=== PATIENT | female | born 1935 | race Caucasian/White ===

== ENCOUNTER → 2021-07-11 12:43 | Outpatient (CLI) | payer MEDICARE, SELFPAY ==
[2021-07-11 13:26] LABS: Basophils % 0.4 % (0.1-2.0); Eosinophils # 0.1 K/mm3 (0.0-0.4); Eosinophils % 1.4 % (0.1-12.0); Hematocrit 39.5 % (37.0-47.0); Lymphocytes # 1.3 K/mm3 (0.7-4.5); Lymphocytes % 20.1 % (10-50); Mean Corpuscular HGB Conc 30.3 g/dL (31.8-35.4); Mean Platelet Volume 10.1 fl (7.4-10.4); Monocytes # 0.3 K/mm3 (0.1-1.0); Monocytes % 4.3 % (1.7-9.3); Neutrophils # 4.8 K/mm3 (1.8-7.8); Neutrophils % 73.7 % (37.0-80.0); Platelet Count 195 K/mm3 (142-424); Red Blood Count 3.62 M/mm3 (4.20-5.40); Red Cell Distribution Width 14.9 % (11.5-17.5); White Blood Count 6.5 K/mm3 (4.8-10.8)
[2021-07-11 14:47] LABS: Chloride 106 mmol/L (98-107); Potassium 4.7 mmoL/L (3.5-5.1); Sodium 140 mmol/L (136-145)
[2021-07-11 14:49] LABS: Alanine Aminotransferase 12 U/L (12-78); Alkaline Phosphatase 63 U/L (38-126); Aspartate Amino Transferase 26 U/L (14-36); Bilirubin,Total 0.4 mg/dl (0.2-1.3); Blood Urea Nitrogen 19 mg/dl (7-17); Estimated Glomerular Filt Rate 80 ml/min (>60); GFR (African American) 96 ML/MIN (>60)
[2021-07-11 14:50] LABS: Albumin Level 3.7 g/dl (3.5-5.0); Albumin/Globulin Ratio 1.4 (1.1-1.8); Anion Gap 10.7 mEq/L (5-15); Calcium 8.9 mg/dl (8.4-10.2); Carbon Dioxide 28 mmol/L (22.0-30.0); Chol/HDL Ratio 3.2 (1-3.5); Cholesterol 193 mg/dl (140-200); Globulin 2.6 g/dL (1.3-3.2); Glucose 87 mg/dl (74-100); HDL Cholesterol 61 mg/dl (40-60); Total Protein,Serum 6.3 g/dl (6.3-8.2); Triglycerides 60 mg/dl (30-150); VLDL Cholesterol 12 mg/dL (0-40)
[2021-07-11 15:01] LABS: Direct LDL Cholesterol 99.05 mg/dL (100-129)
[2021-07-11 16:21] LABS: 25-OH Vitamin D, Total 64.6 ng/mL (30-100)
[2021-07-12 20:11] LABS: Vitamin B12 640 pg/mL (239-931)
== END ==
PROVIDERS: Visit Provider Internal Medicine
DX: K44.9 Diaphragmatic hernia without obstruction or gangrene (principal); K21.9 Gastro-esophageal reflux disease without esophagitis; K41.90 Unilateral femoral hernia, without obstruction or gangrene, not specified as recurrent; M81.0 Age-related osteoporosis without current pathological fracture; M15.0 Primary generalized (osteo)arthritis; E78.5 Hyperlipidemia, unspecified
CPT/HCPCS: 80053; 80061; 82306; 82607; 82746; 85025

== ENCOUNTER → 2021-07-17 14:50 | Outpatient (CLI) | payer MEDICARE, SELFPAY ==
--- NOTE | 2021-07-17 14:55 | XR_ITS ---
PROCEDURE: XR LUMBAR SPINE MIN 4V CLINICAL INDICATION: RT LOW BACK PAIN,H/O BREAST CA COMPARISON: No exams were available for comparison FINDINGS: Mild thoracolumbar curvature convex left. Multilevel lumbar spondylosis with exaggerated thoracic lordosis. There is 8 mm anterolisthesis of L4 on L5. There is partial lumbarization of S1. No definite acute fracture or dislocation. There is diffuse vascular calcification. There are facet arthritic changes from L3-S1. Other findings:No lytic or blastic change. IMPRESSION: Degenerative changes as described above Dictated by: Spencer Gould MD 07/17/2021 17:25 Spencer Gould MD in [facility] 07/17/2021 17:25
== END ==
PROVIDERS: PCP Internal Medicine; Visit Provider Internal Medicine
DX: M54.50 Low back pain, unspecified (principal); Z85.3 Personal history of malignant neoplasm of breast
CPT/HCPCS: 72110

== ENCOUNTER 2021-12-16 02:47 | Inpatient (IN) | payer MEDICARE, SELFPAY ==
[2021-12-16] VITALS (27 sets, daily range): BP systolic 74–141; BP diastolic 43–65; PULSE 71–117; RESP 0–24; TEMP 36.6–37.3; O2SAT 95–100; BMI 25.4; BMI 25.6
--- NOTE | 2021-12-16 02:38 | ECG_ITS ---
APPROVED REPORT Exam: Resting ECG HR:104 bpm ECG Measurements Heart Rate 104 AXES PA 170 P 25 QRSd 106 QRS -42 QT 354 T 72 QTc 415 Conclusion SINUS TACHYCARDIA POSSIBLE LEFT ATRIAL ENLARGEMENT [-0.1mV P-WAVE IN V1/V2] LEFT AXIS DEVIATION [QRS AXIS < -30] POSSIBLE LEFT VENTRICULAR HYPERTROPHY [VOLTAGE CRITERIA PLUS LAE OR QRS WIDENING] NONSPECIFIC ST & T-WAVE ABNORMALITY ABNORMAL ECG UNCONFIRMED REPORT Electronically signed by : Omid Monique MD 12/17/2021 15:34:12
--- NOTE | 2021-12-16 02:55 | XR_ITS ---
PROCEDURE INFORMATION: Exam: XR Chest Exam date and time: 12/16/2021 2:55 AM Age: 86 years old Clinical indication: Injury or trauma; Fall; Blunt trauma (contusions or hematomas) TECHNIQUE: Imaging protocol: XR of the chest. Views: 1 view. Total images: 1 COMPARISON: CT THORACIC SPINE WO CON 12/16/2021 3:17 AM FINDINGS: Lungs: Unremarkable. No consolidation. Pleural spaces: Unremarkable. No pleural effusion. No pneumothorax. Heart/Mediastinum: Cardiomegaly. Vasculature: Atherosclerosis is evident. Bones/joints: Calcific rotator cuff tendinitis is evident. [place] right spinal scoliosis. Osseous demineralization is evident. IMPRESSION: No acute process identified.
--- NOTE | 2021-12-16 02:55 | CT_ITS ---
PROCEDURE INFORMATION: Exam: CT Head Without Contrast Exam date and time: 12/16/2021 2:55 AM Age: 86 years old Clinical indication: Injury or trauma; Fall; Blunt trauma (contusions or hematomas); Without loss of consciousness TECHNIQUE: Imaging protocol: Computed tomography of the head without contrast. Total images: 301 Radiation optimization: All CT scans at this facility use at least one of these dose optimization techniques: automated exposure control; mA and/or kV adjustment per patient size (includes targeted exams where dose is matched to clinical indication); or iterative reconstruction. COMPARISON: No relevant prior studies available. FINDINGS: Brain: Global brain atrophy is present. Cerebral ventricles: No ventriculomegaly. Paranasal sinuses: Visualized sinuses are unremarkable. No fluid levels. Mastoid air cells: Visualized mastoid air cells are well aerated. Vasculature: Atherosclerosis is evident. Bones/joints: Unremarkable. No acute fracture. Soft tissues: Unremarkable. Other findings: Perivascular space suspected in each basal ganglia, although potentially related to remote lacunar infarct. IMPRESSION: Global brain atrophy is present. No acute intracranial abnormality.
--- NOTE | 2021-12-16 02:55 | CT_ITS ---
PROCEDURE INFORMATION: Exam: CT Lumbar Spine Without Contrast Exam date and time: 12/16/2021 2:55 AM Age: 86 years old Clinical indication: Injury or trauma; Fall; Blunt trauma (contusions or hematomas) TECHNIQUE: Imaging protocol: Computed tomography images of the lumbar spine without contrast. Total images: 522 Radiation optimization: All CT scans at this facility use at least one of these dose optimization techniques: automated exposure control; mA and/or kV adjustment per patient size (includes targeted exams where dose is matched to clinical indication); or iterative reconstruction. COMPARISON: CT THORACIC SPINE WO CON 12/16/2021 3:17 AM FINDINGS: Vertebrae: 50% compression fracture deformity of the L2 vertebral body features 6 mm retropulsion with acute appearing fracture line most notable in the anterior superior endplate, possibly acute on chronic compression fracture deformity. This is causing mild to moderate central canal stenosis. Degeneration related grade 1 anterolisthesis is present at L4-L5. Facet joint degenerative changes are present. Discs/Spinal canal/Neural foramina: Multifocal neural foraminal stenosis, due to degeneration. Other bones/joints: Osseous demineralization is evident. Kidneys and ureters: 17 mm likely benign hemorrhagic/proteinaceous left renal cyst, requiring no further evaluation. Multiple likely benign right renal cysts are present, requiring no further evaluation, as large as 3.7 cm. Reproductive: Calcification within the uterus likely benign and related to incidental fibroid uterus. Vasculature: Atherosclerosis is evident. Soft tissues: Unremarkable. IMPRESSION: 50% compression fracture deformity of the L2 vertebral body features 6 mm retropulsion with acute appearing fracture line most notable in the anterior superior endplate, indicating either acute or acute on chronic compression fracture deformity. This is causing mild to moderate central canal stenosis. No other acute fracture identified. COMMENTS: Consistent with the [employer]'s Incidental Findings Committee white paper (J Am Jeronimo Radiol 2018): Any incidental renal lesion less than 1 cm or classified as too small to characterize, or any incidental cystic renal lesion characterized as simple-appearing, is likely benign. No follow-up imaging is recommended for these lesions per consensus recommendations based on imaging criteria.
--- NOTE | 2021-12-16 02:55 | CT_ITS ---
PROCEDURE INFORMATION: Exam: CT Cervical Spine Without Contrast Exam date and time: 12/16/2021 2:55 AM Age: 86 years old Clinical indication: Injury or trauma; Fall; Blunt trauma TECHNIQUE: Imaging protocol: Computed tomography images of the cervical spine without contrast. Total images: 517 Radiation optimization: All CT scans at this facility use at least one of these dose optimization techniques: automated exposure control; mA and/or kV adjustment per patient size (includes targeted exams where dose is matched to clinical indication); or iterative reconstruction. COMPARISON: No relevant prior studies available. FINDINGS: Tubes, catheters and devices: Intravenous gas is likely related to peripheral IV catheter placement. Bones/joints: Degeneration related grade 1 anterolisthesis is present at C4-C5. Osseous demineralization is evident. Discs/Spinal canal/Neural foramina: Atlantodental degeneration. Degenerative soft tissue posterior to the dens is resulting in some central canal stenosis. Moderate disc space height loss at C5/C6. Mild disc space height loss at C6/C7. Moderate diffuse osseous degenerative changes are present. Degenerative posterior osseous ridging at C5-C7. Lungs: Lung apices are normal. Vasculature: Atherosclerosis is evident. Atherosclerotic calcifications indicating probable carotid arterial stenosis. Soft tissues: Unremarkable. IMPRESSION: 1. Degenerative changes are present without acute osseous injury. 2. Atherosclerotic calcifications indicating probable carotid arterial stenosis.
--- NOTE | 2021-12-16 02:55 | XR_ITS ---
PROCEDURE INFORMATION: Exam: XR Left Knee Exam date and time: 12/16/2021 2:55 AM Age: 86 years old Clinical indication: Injury or trauma; Fall; Sprain or strain; Patella or knee; Left; Prior surgery; Surgery date: 6+ months TECHNIQUE: Imaging protocol: XR Left knee. Views: 3 views. Total images: 4 COMPARISON: No relevant prior studies available. FINDINGS: Bones/joints: Osseous demineralization is evident. Left knee arthroplasty. Soft tissues: Unremarkable. Vasculature: Atherosclerosis is evident. IMPRESSION: No acute fracture identified.
--- NOTE | 2021-12-16 02:55 | XR_ITS ---
PROCEDURE INFORMATION: Exam: XR Right Knee Exam date and time: 12/16/2021 2:55 AM Age: 86 years old Clinical indication: Injury or trauma; Fall; Blunt trauma; Knee; Right; Prior surgery; Surgery date: 6+ months TECHNIQUE: Imaging protocol: XR Right knee. Views: 3 views. Total images: 3 COMPARISON: No relevant prior studies available. FINDINGS: Bones/joints: Right knee arthroplasty noted. Sagittal plane periprosthetic fracture through the medial femoral condyle with 3 mm medial displacement. Osseous demineralization is evident. Soft tissues: Unremarkable. Vasculature: Atherosclerosis is evident. IMPRESSION: Sagittal plane periprosthetic fracture through the medial femoral condyle with 3 mm medial displacement. This appears likely acute.
--- NOTE | 2021-12-16 02:55 | CT_ITS ---
PROCEDURE INFORMATION: Exam: CT Thoracic Spine Without Contrast Exam date and time: 12/16/2021 2:55 AM Age: 86 years old Clinical indication: Injury or trauma; Fall; Blunt trauma (contusions or hematomas) TECHNIQUE: Imaging protocol: Computed tomography images of the thoracic spine without contrast. Total images: 461 Radiation optimization: All CT scans at this facility use at least one of these dose optimization techniques: automated exposure control; mA and/or kV adjustment per patient size (includes targeted exams where dose is matched to clinical indication); or iterative reconstruction. COMPARISON: CT CERVICAL SPINE WO CON 12/16/2021 3:15 AM FINDINGS: Vertebrae: [place] right spinal scoliosis. Thoracic spondylosis is present. Prominent benign-appearing T10 vertebral body hemangioma suspected. Discs/Spinal canal/Neural foramina: No significant disc protrusion. No severe spinal canal stenosis. No significant neural foraminal narrowing. Other bones/joints: Osseous demineralization is evident. Soft tissues: Unremarkable. Vasculature: Atherosclerosis is evident. Lungs: Patchy subpleural subsegmental atelectasis. Coronary arteries: Calcific coronary artery disease is evident. Mediastinum: Gas noted within the thoracic esophageal lumen and could be evidence of gastroesophageal reflux. A moderate hiatal hernia is present. IMPRESSION: Degenerative changes are present without acute osseous injury. COMMENTS: Please see CT lumbar spine regarding additional findings.
[2021-12-16 03:03] LABS: Microscopic, Urine URINE MICROSCOPIC (MICROSCOPIC)
--- NOTE | 2021-12-16 03:05 | XR_ITS ---
PROCEDURE INFORMATION: Exam: XR Pelvis Exam date and time: 12/16/2021 3:05 AM Age: 86 years old Clinical indication: Injury or trauma; Fall; Blunt trauma (contusions or hematomas); Bilateral; Pelvic region TECHNIQUE: Imaging protocol: XR pelvis. Views: 1 or 2 view. Total images: 1 COMPARISON: CT LUMBAR SPINE WO CON 12/16/2021 3:20 AM FINDINGS: Tubes, catheters and devices: Midline pelvic catheter. Bones/joints: Spinal degenerative changes are evident. Sacroiliac joint degeneration is evident. Mild degenerative changes of both hips. Soft tissues: Unremarkable. Vasculature: Atherosclerosis is evident. IMPRESSION: No acute fracture identified.
[2021-12-16 03:08] LABS: Basophils # 0.2 K/mm3 (0-0.2); Basophils % 0.6 % (0.1-2.0); Eosinophils % 0.1 % (0.1-12.0); Hematocrit 38.5 % (37.0-47.0); Lymphocytes # 0.7 K/mm3 (0.7-4.5); Lymphocytes % 2.4 % (10-50); Mean Corpuscular HGB Conc 31.1 g/dL (31.8-35.4); Mean Corpuscular Hemoglobin 32.4 pg (27.0-31.2); Mean Corpuscular Volume 104.1 fl (81-99); Mean Platelet Volume 11.2 fl (7.4-10.4); Monocytes # 0.6 K/mm3 (0.1-1.0); Monocytes % 1.9 % (1.7-9.3); Neutrophils # 28.4 K/mm3 (1.8-7.8); Neutrophils % 94.9 % (37.0-80.0); Platelet Count 179 K/mm3 (142-424); Red Cell Distribution Width 15.7 % (11.5-17.5); White Blood Count 29.9 K/mm3 (4.8-10.8)
[2021-12-16 03:11] LABS: Alanine Aminotransferase 30 U/L (12-78); Albumin Level 3.1 g/dl (3.5-5.0); Albumin/Globulin Ratio 0.9 (1.1-1.8); Alkaline Phosphatase 308 U/L (38-126); Anion Gap 19.8 mEq/L (5-15); Aspartate Amino Transferase 49 U/L (14-36); Bilirubin,Total 2.2 mg/dl (0.2-1.3); Calcium 8.8 mg/dl (8.4-10.2); Carbon Dioxide 15 mmol/L (22.0-30.0); Chloride 110 mmol/L (98-107); Creatinine Clearance Estimated 11 mL/min (50-200); Estimated Glomerular Filt Rate 12 ml/min (>60); Globulin 3.5 g/dL (1.3-3.2); Glucose 108 mg/dl (74-100); Potassium 3.8 mmoL/L (3.5-5.1); Sodium 141 mmol/L (136-145); Total Protein,Serum 6.6 g/dl (6.3-8.2)
[2021-12-16 03:12] LABS: Blood Urea Nitrogen 87 mg/dl (7-17)
[2021-12-16 03:13] LABS: GFR (African American) 15 ML/MIN (>60)
[2021-12-16 03:16] LABS: MANUAL DIFFERENTIAL MANUAL DIFFERENTIAL (MANUAL DIFF)
[2021-12-16 03:19] LABS: Coronavirus 19, PCR Detected (NotDetected); Influenza A, PCR Not Detected (NotDetected); Influenza B, PCR Not Detected (NotDetected)
[2021-12-16 03:26] LABS: Troponin I 0.12 ng/ml (0.00-0.034)
[2021-12-16 03:31] LABS: Procalcitonin 6.88 ng/mL (0.0-2.0)
[2021-12-16 03:32] LABS: C-Reactive Protein 431.6 mg/L (0-4)
--- NOTE | 2021-12-16 03:32 | PC.NURSE ---
Eulogio in Lab called with Critical BUN of 87. notified. No new orders. Will continue to monitor.
[2021-12-16 03:41] LABS: Appearance,Urine CLEAR (Clear); Blood, Urine Negative (Negative); Color,Urine DK YELLOW (Yellow); Glucose,Urine (UA) Negative (Negative); Ketones,Urine Negative (Negative); Leukocyte Esterase,Urine Negative (Negative); Nitrate,Urine Negative (Negative); PH,Urine 5.5 (5.0-8.5); Protein,Urine 1+ (Negative); Specific Gravity, Urine 1.025 (1.005-1.030)
[2021-12-16 03:45] LABS: Bilirubin,Urine Negative (Negative)
[2021-12-16 03:49] LABS: Renal Epithelial Cells,Urine Occasional #/lpf (0); WBC,Urine 20-50 #/hpf (0-3)
[2021-12-16 03:51] LABS: Lymphocytes % 6 % (10-50); Monocytes % 1 % (2-9); Neutrophils % 79 % (42-76); Total Cells Counted 100
[2021-12-16 03:52] LABS: Hypochromasia 1+; Macrocytosis 2+; Platelet Estimate Normal; Rouleaux 2+; Toxic Granulation 1+; Toxic Vacuolation 1+
--- NOTE | 2021-12-16 04:39 | HMH.EDWEAK ---
ED Disposition Clinical Impression: YUDITH (acute kidney injury), Severe sepsis with acute organ dysfunction, Septic shock, Elevated troponin, Knee fracture, right, COVID-19 UTI (urinary tract infection) Qualifiers: Urinary tract infection type: site unspecified Hematuria presence: without hematuria Qualified Code(s): N39.0 - Urinary tract infection, site not specified Lumbar compression fracture Qualifiers: Encounter type: initial encounter Lumbar vertebra fracture level: L2 Qualified Code(s): S32.020A - Wedge compression fracture of second lumbar vertebra, initial encounter for closed fracture Disposition: Admitted As Inpatient Condition on Discharge: Serious - Critical Care Critical Care Time: No Attestation: On 12/16/21, the high probability of a clinically significant, sudden or life threatening deterioration of the following system(s) required my full and direct attention, intervention and personal management. The time I documented below is in addition to time spent performing reported procedures but includes the following listed in this critical care notation. Medical Decision Making - Medical Records Medical records reviewed: Yes: I reviewed the patient's medical records. - Jeremiah Inquiry Pt receiving controlled substance: No Vital Signs: 12/16/21 02:39 12/16/21 03:47 12/16/21 03:59 Temperature 98.2 F Temperature Source Oral Pulse Rate 71 94 H Pulse Rate [Right] 104 H Respiratory Rate 16 19 19 Blood Pressure 96/45 L 88/47 L Blood Pressure [Right Arm] 74/50 L Blood Pressure Mean Blood Pressure Mean [Right Arm] 58 02 Sat by Pulse Oximetry 98 97 97 Oxygen Delivery Method 12/16/21 04:03 12/16/21 04:16 12/16/21 04:30 Temperature Temperature Source Pulse Rate 101 H 91 H 86 Pulse Rate [Right] Respiratory Rate 24 23 19 Blood Pressure 90/45 L 99/47 L 97/61 L Blood Pressure [Right Arm] Blood Pressure Mean Blood Pressure Mean [Right Arm] 02 Sat by Pulse Oximetry 95 96 96 Oxygen Delivery Method Room Air Room Air Room Air 12/16/21 05:00 12/16/21 05:24 12/16/21 05:30 Temperature Temperature Source Pulse Rate 76 72 73 Pulse Rate [Right] Respiratory Rate 20 18 20 Blood Pressure 90/46 L 100/57 L 101/59 L Blood Pressure [Right Arm] Blood Pressure Mean 60 65 72 Blood Pressure Mean [Right Arm] 02 Sat by Pulse Oximetry 97 Oxygen Delivery Method 12/16/21 06:00 12/16/21 06:35 Temperature Temperature Source Pulse Rate 73 95 H Pulse Rate [Right] Respiratory Rate 20 16 Blood Pressure 108/54 L 101/43 L Blood Pressure [Right Arm] Blood Pressure Mean 62 Blood Pressure Mean [Right Arm] 02 Sat by Pulse Oximetry 99 100 Oxygen Delivery Method Room Air - Lab Data Lab results reviewed: Yes: I reviewed the patient's lab results. Lab Results 12/16/21 02:45: WBC 29.9 H*, RBC 3.70 L, Hgb 12.0 L, Hct 38.5, MCV 104.1 H, MCH 32.4 H, MCHC 31.1 L, RDW 15.7, Plt Count 179, MPV 11.2 H, Neut % (Auto) 94.9 H, Lymph % (Auto) 2.4 L, [place] % (Auto) 1.9, Eos % (Auto) 0.1, Baso % (Auto) 0.6, Neut # (Auto) 28.4 H, Lymph # (Auto) 0.7, [place] # (Auto) 0.6, Eos # (Auto) 0.0, Baso # (Auto) 0.2, Total Counted 100, Neutrophils % (Manual) 79 H, Band Neutrophils % 14.0 H, Lymphocytes % (Manual) 6 L, Monocytes % (Manual) 1 L, Toxic Granulation 1+, Toxic Vacuolation 1+, Platelet Estimate Normal, Hypochromasia 1+, Macrocytosis 2+, Rouleaux 2+, ESR 32 H 12/16/21 02:45: Sodium 141, Potassium 3.8, Chloride 110 H, Carbon Dioxide 15 L, Anion Gap 19.8 H, BUN 87 H, Creatinine 3.60 H, Estimated Creat Clear 11, Estimated GFR 12 L*, Est GFR ( Amer) 15 L*, Glucose 108 H, Calcium 8.8, Total Bilirubin 2.2 H, AST 49 H, ALT 30, Alkaline Phosphatase 308 H, Troponin I 0.12 H, C-Reactive Protein 431.6 H, Total Protein 6.6, Albumin 3.1 L, Globulin 3.5 H, Albumin/Globulin Ratio 0.9 L, Procalcitonin 6.88 H 12/16/21 02:45: Urine Color Dk yellow, Urine Appearance Clear, Urine pH 5.5, Ur Specifi
[2021-12-16 04:43] LABS: Erythrocyte Sedimentation Rate 32 mm/hr (0-30)
[2021-12-16 05:04] LABS: Creatine Kinase 69 U/L (30-135)
[2021-12-16 06:19] LABS: Creatine Kinase MB 2.1 ng/ml (0.0-2.03)
[2021-12-16 06:30] LABS: Troponin I 0.16 ng/ml (0.00-0.034)
[2021-12-16 07:00] LABS: Reflex Lactic Add Lactic Reflex
[2021-12-16 07:47] LABS: Lactic Acid Follow Up (RFLX 1) 1.6 mmol/L (0.7-2.1)
--- NOTE | 2021-12-16 08:11 | HMH.HP ---
*Admission Date: 12/16/21 *Chief complaint: weakness *History of present illness: pt was seen in the er with hx of progressive weakness and had falls with back and knee pain-ems called out for weakness. pt's daughter reports pt fell last week and has gotten progessive weak since fall. pt c/o bilateral knee pain. pt is alert to self and place brought by family with weakness - fell last week with knee and back pain - last ambulated 2 days ago - dec po intake but no chest pain or vomiting pt was found to have sepsis with shock and was admitted to [facility] for treatment and eval [facility] History I have reviewed the patient's past medical history: Yes *Have you ever received a pneumonia vaccine?: Yes *Have you received a flu vaccine this season?: Yes - *Social History Smoking Status: Smoker, status unknown Alcohol Intake: never *Occupational Status:: retired *Travel in the last 8 weeks: None Family Hx:: Non-contributory Review of Systems - Review of Systems Review of systems:: pertinent systems reviewed and negative unless documented below - Constitutional Reports weakness, Denies fever(s) - Eyes Denies change in vision - ENT Denies sore throat - *Cardiovascular Denies chest pain at rest, Denies shortness of breath - *Respiratory Denies cough - *Gastrointestinal Denies abdominal pain - *Genitourinary Denies blood in urine - *Musculoskeletal Reports joint pain, Reports back pain, Reports limited joint movement - Integumentary/Breasts Denies rash - *Neurologic Reports weakness, Denies headache(s), Denies seizure-like activity - Psychiatric Denies confusion Meds Home Medications Medication Instructions Recorded Confirmed Type LORazepam [Lorazepam 2mg Tablet] 1 mg PO QID 10/21/18 12/16/21 History Dexlansoprazole [Dexilant] 60 mg PO DAILY 12/16/21 12/16/21 History Escitalopram Oxalate [Lexapro] 10 mg PO DAILY 12/16/21 12/16/21 History Furosemide [Furosemide 40MG tAB*] 40 mg PO DAILY 12/16/21 12/16/21 History Oxybutynin Chloride [Oxybutynin 5 mg PO HS 12/16/21 12/16/21 History Chloride ER] Trazodone HCl 50 mg PO HS 12/16/21 12/16/21 History ondansetron HCL [Ondansetron 4mg 4 mg PO Q4HP PRN 12/16/21 12/16/21 History tab*] Allergies Allergy/AdvReac Type Severity Reaction Status Date / Time No Known Allergies Allergy Unverified 10/01/17 14:27 Exam Vital signs and Labs for Last 24 Hours: Temp Pulse Resp BP Pulse Ox 98.2 F 76 18 94/52 L 98 12/16/21 07:42 12/16/21 07:46 12/16/21 07:46 12/16/21 07:46 12/16/21 07:46 Laboratory Results - last 24 hr 12/16/21 02:45: WBC 29.9 H*, RBC 3.70 L, Hgb 12.0 L, Hct 38.5, MCV 104.1 H, MCH 32.4 H, MCHC 31.1 L, RDW 15.7, Plt Count 179, MPV 11.2 H, Neut % (Auto) 94.9 H, Lymph % (Auto) 2.4 L, [place] % (Auto) 1.9, Eos % (Auto) 0.1, Baso % (Auto) 0.6, Neut # (Auto) 28.4 H, Lymph # (Auto) 0.7, [place] # (Auto) 0.6, Eos # (Auto) 0.0, Baso # (Auto) 0.2, Total Counted 100, Neutrophils % (Manual) 79 H, Band Neutrophils % 14.0 H, Lymphocytes % (Manual) 6 L, Monocytes % (Manual) 1 L, Toxic Granulation 1+, Toxic Vacuolation 1+, Platelet Estimate Normal, Hypochromasia 1+, Macrocytosis 2+, Rouleaux 2+, ESR 32 H 12/16/21 02:45: Sodium 141, Potassium 3.8, Chloride 110 H, Carbon Dioxide 15 L, Anion Gap 19.8 H, BUN 87 H, Creatinine 3.60 H, Estimated Creat Clear 11, Estimated GFR 12 L*, Est GFR ( Amer) 15 L*, Glucose 108 H, Calcium 8.8, Total Bilirubin 2.2 H, AST 49 H, ALT 30, Alkaline Phosphatase 308 H, Troponin I 0.12 H, C-Reactive Protein 431.6 H, Total Protein 6.6, Albumin 3.1 L, Globulin 3.5 H, Albumin/Globulin Ratio 0.9 L, Procalcitonin 6.88 H 12/16/21 02:45: Urine Color Dk yellow, Urine Appearance Clear, Urine pH 5.5, Ur Specific [place] 1.025, Urine Protein 1+, Urine Glucose (UA) Negative, Urine Ketones Negative, Urine Blood Negative, Urine Nitrate Negative, Urine Bilirubin Negative, Urine Urobilinogen 1.0, Ur Leukocyte Esterase Negative, Urine WBC 20-50, Ur Re
--- NOTE | 2021-12-16 08:29 | HMH.PHAINT ---
MEDICATION RECONCILIATION COMPLETED ON PATIENT USING EXTERNAL FILL HISTORY FROM PHARMACY. -KELLY CALDWELL, ELLIOTD
--- NOTE | 2021-12-16 08:30 | HMH.PHAVTE ---
[facility] Pharmacy VTE Monitoring - Patient Demographics Admission date: 12/16/21 Report Date: 12/16/21 Time: 08:30 Allergies/Adverse Reactions: Patient Allergies No Known Allergies Allergy (Unverified 10/01/17 14:27) Height: 1.55 m Weight: 61.49 kg Patient Problems: Current Active Problems UTI (urinary tract infection) (Acute) YUDITH (acute kidney injury) (Acute) Severe sepsis with acute organ dysfunction (Acute) Septic shock (Acute) Elevated troponin (Acute) Knee fracture, right (Acute) Lumbar compression fracture (Acute) COVID-19 (Acute) - VTE Risk Labs: VTE Related Lab Results Hgb 12.0 g/dL (12.2-16.2) L 12/16/21 02:45 Hct 38.5 % (37.0-47.0) 12/16/21 02:45 Plt Count 179 K/mm3 (142-424) 12/16/21 02:45 BUN 87 mg/dl (7-17) H 12/16/21 02:45 Creatinine 3.60 mg/dl (0.52-1.04) H 12/16/21 02:45 Estimated Creat Clear 11 mL/min (50-200) 12/16/21 02:45 VTE Score: 2 - Prophylaxis VTE Prophylaxis Ordered?: Yes Types of VTE Prophylaxis: TEDS Knee High Location of Applied Device: Bilateral Lower Extremeties
[2021-12-16 10:20] LABS: Troponin I 0.25 ng/ml (0.00-0.034)
--- NOTE | 2021-12-16 16:18 | HMH.ORTHOCON ---
*Admission Date: 12/16/21 *Reason for consult:: Medial condyle fracture, right knee [facility] History I have reviewed the patient's past medical history: Yes Medical History: Reports:: Cancer (breast cancer) Denies:: Diabetes Mellitus Type 1, Diabetes Mellitus Type 2 *Have you ever received a pneumonia vaccine?: Yes *Have you received a flu vaccine this season?: Yes Other Medical History: Reports: Arthritis, Cataracts Laterality Cases: Right: Mastectomy, Bilateral: Arthroscopy Knee Other Surgeries: Yes: Cholecystectomy - *Social History Last grade of school completed: 7th or 8th Smoking Status: Never smoker Alcohol Intake: never *Occupational Status:: retired Housing: house Household Members: family *Travel in the last 8 weeks: None Family Hx:: Anemia, Coronary Artery Disease, Diabetes, Heart Attack, Hyperlipidemia, Hypertension, Kidney Disease, Stroke Review of Systems - Review of Systems Review of systems:: unable to obtain Meds Home Medications Medication Instructions Recorded Confirmed Type LORazepam [Lorazepam 2mg Tablet] 1 mg PO QID 10/21/18 12/16/21 History Dexlansoprazole [Dexilant] 60 mg PO DAILY 12/16/21 12/16/21 History Escitalopram Oxalate [Lexapro] 10 mg PO DAILY 12/16/21 12/16/21 History Furosemide [Furosemide 40MG tAB*] 40 mg PO DAILY 12/16/21 12/16/21 History Oxybutynin Chloride [Oxybutynin 5 mg PO HS 12/16/21 12/16/21 History Chloride ER] Trazodone HCl 50 mg PO HS 12/16/21 12/16/21 History ondansetron HCL [Ondansetron 4mg 4 mg PO Q4HP PRN 12/16/21 12/16/21 History tab*] Allergies Allergy/AdvReac Type Severity Reaction Status Date / Time No Known Allergies Allergy Unverified 10/01/17 14:27 Exam Vital signs and Labs for Last 24 Hours: Temp Pulse Resp BP Pulse Ox 98.2 F 89 18 96/50 L 96 12/16/21 07:42 12/16/21 14:00 12/16/21 14:00 12/16/21 14:00 12/16/21 14:00 Laboratory Results - last 24 hr 12/16/21 02:45: WBC 29.9 H*, RBC 3.70 L, Hgb 12.0 L, Hct 38.5, MCV 104.1 H, MCH 32.4 H, MCHC 31.1 L, RDW 15.7, Plt Count 179, MPV 11.2 H, Neut % (Auto) 94.9 H, Lymph % (Auto) 2.4 L, [place] % (Auto) 1.9, Eos % (Auto) 0.1, Baso % (Auto) 0.6, Neut # (Auto) 28.4 H, Lymph # (Auto) 0.7, [place] # (Auto) 0.6, Eos # (Auto) 0.0, Baso # (Auto) 0.2, Total Counted 100, Neutrophils % (Manual) 79 H, Band Neutrophils % 14.0 H, Lymphocytes % (Manual) 6 L, Monocytes % (Manual) 1 L, Toxic Granulation 1+, Toxic Vacuolation 1+, Platelet Estimate Normal, Hypochromasia 1+, Macrocytosis 2+, Rouleaux 2+, ESR 32 H 12/16/21 02:45: Sodium 141, Potassium 3.8, Chloride 110 H, Carbon Dioxide 15 L, Anion Gap 19.8 H, BUN 87 H, Creatinine 3.60 H, Estimated Creat Clear 11, Estimated GFR 12 L*, Est GFR ( Amer) 15 L*, Glucose 108 H, Calcium 8.8, Total Bilirubin 2.2 H, AST 49 H, ALT 30, Alkaline Phosphatase 308 H, Troponin I 0.12 H, C-Reactive Protein 431.6 H, Total Protein 6.6, Albumin 3.1 L, Globulin 3.5 H, Albumin/Globulin Ratio 0.9 L, Procalcitonin 6.88 H 12/16/21 02:45: Urine Color Dk yellow, Urine Appearance Clear, Urine pH 5.5, Ur Specific [place] 1.025, Urine Protein 1+, Urine Glucose (UA) Negative, Urine Ketones Negative, Urine Blood Negative, Urine Nitrate Negative, Urine Bilirubin Negative, Urine Urobilinogen 1.0, Ur Leukocyte Esterase Negative, Urine WBC 20-50, Ur Renal Epithelial Cell Occasional, WBC Casts 3-5 12/16/21 02:45: Lactate 3.0 H 12/16/21 02:45: SARS-CoV-2 (PCR) Detected A, Influenza A Untype (PCR) Not detected, Influenza Type B (PCR) Not detected 12/16/21 02:45: Total Creatine Kinase 69, CK-MB (CK-2) 2.1 H 12/16/21 06:03: Troponin I 0.16 H 12/16/21 07:33: Lactate 1.6 12/16/21 09:10: Troponin I 0.25 H I & O for Last 24 hours: Intake & Output 12/14/21 12/15/21 12/16/21 12/17/21 11:59 11:59 11:59 11:59 Weight 135 lb 9 oz - Constitutional no acute distress, average body habitus, somnolent - *Routine HEENT Exam Head: Present: normocephalic, atraumatic Eye: Present: other ENT: Present: mucous m
--- NOTE | 2021-12-16 18:05 | PC.NURSE ---
Patient resting comfortably in bed, levophed infusing at 8mcg, knee immobilizer in place to R knee, denies any pain at this time, on 2LNC, has been turned q2h, po intake poor, has only had a few drinks of water, refused all food, no s/s of distress noted, will continue to monitor.
[2021-12-17] VITALS (15 sets, daily range): BP systolic 102–130; BP diastolic 53–84; PULSE 77–120; RESP 16–29; TEMP 36.6–37.3; O2SAT 92–95; BMI 25.7
--- NOTE | 2021-12-17 06:27 | PC.NURSE ---
pt has rested t/o most of shift, has remained on 2L NC, no complaints of pain or SOA, mccann remains in place, daughter has remained at bedside, daughter has expressed concerns about lack of bowel movement Levo currently infusing at 6
[2021-12-17 07:13] LABS: Anion Gap 16.6 mEq/L (5-15); Calcium 7.5 mg/dl (8.4-10.2); Carbon Dioxide 14 mmol/L (22.0-30.0); Chloride 120 mmol/L (98-107); Creatinine Clearance Estimated 21 mL/min (50-200); Estimated Glomerular Filt Rate 25 ml/min (>60); GFR (African American) 30 ML/MIN (>60); Glucose 129 mg/dl (74-100); Magnesium 2.4 mg/dl (1.6-2.3); Potassium 3.6 mmoL/L (3.5-5.1); Sodium 147 mmol/L (136-145)
[2021-12-17 07:24] LABS: Blood Urea Nitrogen 82 mg/dl (7-17)
[2021-12-17 07:45] LABS: Basophils # 0.1 K/mm3 (0-0.2); Basophils % 0.3 % (0.1-2.0); Hematocrit 33.2 % (37.0-47.0); Hemoglobin 10.4 g/dL (12.2-16.2); Lymphocytes # 1.1 K/mm3 (0.7-4.5); Lymphocytes % 2.9 % (10-50); Mean Corpuscular HGB Conc 31.4 g/dL (31.8-35.4); Mean Corpuscular Hemoglobin 32.9 pg (27.0-31.2); Mean Corpuscular Volume 104.8 fl (81-99); Mean Platelet Volume 11.9 fl (7.4-10.4); Monocytes # 0.6 K/mm3 (0.1-1.0); Monocytes % 1.6 % (1.7-9.3); Neutrophils # 36.8 K/mm3 (1.8-7.8); Neutrophils % 95.1 % (37.0-80.0); Platelet Count 92 K/mm3 (142-424); Red Blood Count 3.17 M/mm3 (4.20-5.40); Red Cell Distribution Width 16.5 % (11.5-17.5); White Blood Count 38.7 K/mm3 (4.8-10.8)
[2021-12-17 07:49] LABS: MANUAL DIFFERENTIAL MANUAL DIFFERENTIAL (MANUAL DIFF)
--- NOTE | 2021-12-17 07:57 | PC.NURSE ---
0745- BP 121/74, MAP 89, levophed titrated to 4mcg at this time
--- NOTE | 2021-12-17 08:22 | HMH.ACPN2 ---
Internal Medicine - PN: Subj *Date: 12/18/21 *Time: 06:25 Interval history: wbc higher but renal function improved - sl tender abd -more sedated Exam Vital signs and Labs for Last 24 Hours: Temp Pulse Resp BP Pulse Ox 98.7 F 84 18 120/58 L 92 L 12/17/21 04:00 12/17/21 06:00 12/17/21 06:00 12/17/21 06:00 12/17/21 06:00 Laboratory Results - last 24 hr 12/16/21 09:10: Troponin I 0.25 H 12/17/21 06:23: WBC 38.7 H* D, RBC 3.17 L, Hgb 10.4 L, Hct 33.2 L, MCV 104.8 H, MCH 32.9 H, MCHC 31.4 L, RDW 16.5, Plt Count 92 L D, MPV 11.9 H, Neut % (Auto) 95.1 H, Lymph % (Auto) 2.9 L, [place] % (Auto) 1.6 L, Eos % (Auto) 0.0 L, Baso % (Auto) 0.3, Neut # (Auto) 36.8 H, Lymph # (Auto) 1.1, [place] # (Auto) 0.6, Eos # (Auto) 0.0, Baso # (Auto) 0.1 12/17/21 06:23: Sodium 147 H, Potassium 3.6, Chloride 120 H, Carbon Dioxide 14 L, Anion Gap 16.6 H, BUN 82 H, Creatinine 1.90 H D, Estimated Creat Clear 21, Estimated GFR 25 L, Est GFR ( Amer) 30 L D, Glucose 129 H, Calcium 7.5 L, Magnesium 2.4 H I & O for Last 24 hours: Intake & Output 12/14/21 12/15/21 12/16/21 12/17/21 11:59 11:59 11:59 11:59 Intake Total 1773 / 1773 Output Total 650 / 650 Balance 1123 / 1123 Weight 135 lb 9 oz 136 lb 9.6 oz Microbiology Reports for the Last 24 Hours: Microbiology 12/16/21 02:45 Blood Blood Culture - Preliminary 12/16/21 02:45 Urine,Catheterized Urine Culture - Preliminary NO GROWTH AFTER 24 HOURS 12/16/21 02:45 Blood Blood Culture - Preliminary - Constitutional somnolent - *Routine HEENT Exam Head: Present: normocephalic Eye: Present: EOMI, PERRL ENT: Present: mucous membranes dry - *Routine Neck Exam Absent: JVD - *Routine Respiratory Exam Present: decreased breath sounds - *Routine Cardiovascular Exam Present: RRR, murmur - *Routine Abdominal Exam Present: soft - *Routine Extremities Exam Absent: edema - *Routine Skin Exam Present: intact - *Routine Neurological Exam Present: altered mental status - Routine Psychiatric Exam Present: unable to assess Assessment and Plan (1) YUDITH (acute kidney injury) Status: Acute Category: Medical Code(s): N17.9 - Acute kidney failure, unspecified (2) COVID-19 Status: Acute Category: Medical Code(s): U07.1 - COVID-19 (3) Elevated troponin Status: Acute Category: Medical Code(s): R77.8 - Other specified abnormalities of plasma proteins (4) Knee fracture, right Status: Acute Category: Medical (5) Lumbar compression fracture Status: Acute Qualifiers: Encounter type: initial encounter Lumbar vertebra fracture level: L2 Qualified Code(s): S32.020A - Wedge compression fracture of second lumbar vertebra, initial encounter for closed fracture Category: Medical Code(s): S32.000A - Wedge compression fracture of unspecified lumbar vertebra, initial encounter for closed fracture (6) 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tion, site not specified Category: Medical Code(s): N39.0 - Urinary tract infection, site not specified
[2021-12-17 09:05] LABS: Lymphocytes % 3 % (10-50); Monocytes % 1 % (2-9); Neutrophils % 96 % (42-76); Nucleated Red Blood Cells 1; Total Cells Counted 100
[2021-12-17 09:06] LABS: Macrocytosis 1+; Platelet Estimate Slight Decrease
[2021-12-17 09:10] LABS: Acanthocytes 1+; Burr Cells 1+
[2021-12-17 09:11] LABS: Poikilocytosis 1+
[2021-12-17 09:13] LABS: Rouleaux 1+
--- NOTE | 2021-12-17 09:48 | XR_ITS ---
PROCEDURE INFORMATION: Exam: XR Chest Exam date and time: 12/17/2021 9:48 AM Age: 86 years old Clinical indication: Shortness of breath; Additional info: Increased wbc TECHNIQUE: Imaging protocol: XR of the chest. Views: 4 or more views. COMPARISON: CR XR CHEST PORTABLE 12/16/2021 3:28 AM FINDINGS: Lungs: No evidence of an active pulmonary process. Mild linear atelectasis/fibrosis. The right lung base is obscured by the cardiac silhouette. Pleural spaces: No pneumothorax. Heart/Mediastinum: Unremarkable. No cardiomegaly. Bones/joints: Rotoscoliosis and osteoarthritic changes. Other findings: The exam is significantly limited by patient rotation to the right. IMPRESSION: Severely limited exam. Otherwise, no evidence of an active process.
--- NOTE | 2021-12-17 09:49 | CT_ITS ---
PROCEDURE INFORMATION: Exam: CT Abdomen And Pelvis Without Contrast Exam date and time: 12/17/2021 9:49 AM Age: 86 years old Clinical indication: Abdominal pain; Generalized; Additional info: Abd pain TECHNIQUE: Imaging protocol: Computed tomography of the abdomen and pelvis without contrast. Radiation optimization: All CT scans at this facility use at least one of these dose optimization techniques: automated exposure control; mA and/or kV adjustment per patient size (includes targeted exams where dose is matched to clinical indication); or iterative reconstruction. COMPARISON: CR XR PELVIS 1-2V 12/16/2021 3:30 AM FINDINGS: Pleural spaces: Small bilateral pleural effusions.. Heart: Coronary artery calcifications may indicate coronary artery disease. There is calcification of the aortic valve annulus. There is calcification of the mitral valve annulus. Diaphragm: Moderate hiatal hernia Liver: Normal. No mass. Gallbladder and bile ducts: Normal. No calcified stones. No ductal dilation. Pancreas: Pancreatic atrophy Spleen: Normal. No splenomegaly. Adrenal glands: Normal. No mass. Kidneys and ureters: Multiple bilateral renal cysts.. Largest cyst right kidney 5 cm . No follow-up imaging recommended . 12 Hyperdense nodule medial right kidney 92 Hounsfield units consistent with hemorrhagic cyst. No follow-up required Stomach and bowel: Diverticulosis of the rectosigmoid. No diverticulitis. Bowel wall thickening in the terminal ileum. ( Series 3, image [id number]; series 601 image [id number]) May represent terminal ileitis. Appendix: No evidence of appendicitis. Intraperitoneal space: Unremarkable. No free air. No significant fluid collection. Vasculature: Unremarkable. No abdominal aortic aneurysm. Lymph nodes: Unremarkable. No enlarged lymph nodes. Urinary bladder: Drew catheter in the bladder Reproductive: Unremarkable as visualized. Bones/joints: Moderate compression fracture of unknown age L1. Soft tissues: Unremarkable. IMPRESSION: 1. Bowel wall thickening in the terminal ileum. ( Series 3, image [id number]; series 601 image [id number]) May represent terminal ileitis. 2. Small bilateral pleural effusions.. COMMENTS: Consistent with the [employer]'s Incidental Findings Committee white paper (J Am Jeronimo Radiol 2018): Any incidental renal lesion less than 1 cm or classified as too small to characterize, or any incidental cystic renal lesion characterized as simple-appearing, is likely benign. No follow-up imaging is recommended for these lesions per consensus recommendations based on imaging criteria.
--- NOTE | 2021-12-17 09:49 | HMH.PHACONS ---
- Pharmacy Consult Date: 12/17/21 Time: 09:49 Referring provider: DR. SANABRIA Reason for Consult:: VANCOMYCIN DOSING Allergies and ADEs:: Allergies Allergy/AdvReac Type Severity Reaction Status Date / Time No Known Allergies Allergy Unverified 10/01/17 14:27 Home Medications:: Home Medications Medication Instructions Recorded Confirmed Type LORazepam [Lorazepam 2mg Tablet] 1 mg PO QID 10/21/18 12/16/21 History Dexlansoprazole [Dexilant] 60 mg PO DAILY 12/16/21 12/16/21 History Escitalopram Oxalate [Lexapro] 10 mg PO DAILY 12/16/21 12/16/21 History Furosemide [Furosemide 40MG tAB*] 40 mg PO DAILY 12/16/21 12/16/21 History Oxybutynin Chloride [Oxybutynin 5 mg PO HS 12/16/21 12/16/21 History Chloride ER] Trazodone HCl 50 mg PO HS 12/16/21 12/16/21 History ondansetron HCL [Ondansetron 4mg 4 mg PO Q4HP PRN 12/16/21 12/16/21 History tab*] Height: 1.55 m Weight: 61.961 kg Laboratory Results:: Laboratory Results - last 24 hr 12/16/21 09:10: Troponin I 0.25 H 12/17/21 06:23: WBC 38.7 H* D, RBC 3.17 L, Hgb 10.4 L, Hct 33.2 L, MCV 104.8 H, MCH 32.9 H, MCHC 31.4 L, RDW 16.5, Plt Count 92 L D, MPV 11.9 H, Neut % (Auto) 95.1 H, Lymph % (Auto) 2.9 L, [place] % (Auto) 1.6 L, Eos % (Auto) 0.0 L, Baso % (Auto) 0.3, Neut # (Auto) 36.8 H, Lymph # (Auto) 1.1, [place] # (Auto) 0.6, Eos # (Auto) 0.0, Baso # (Auto) 0.1, Total Counted 100, Neutrophils % (Manual) 96 H, Lymphocytes % (Manual) 3 L, Monocytes % (Manual) 1 L, Nucleated RBCs 1, Platelet Estimate Slight decrease, Poikilocytosis 1+, Macrocytosis 1+, [place] Cells 1+, Acanthocytes (Spur) 1+, Rouleaux 1+ 12/17/21 06:23: Sodium 147 H, Potassium 3.6, Chloride 120 H, Carbon Dioxide 14 L, Anion Gap 16.6 H, BUN 82 H, Creatinine 1.90 H D, Estimated Creat Clear 21, Estimated GFR 25 L, Est GFR ( Amer) 30 L D, Glucose 129 H, Calcium 7.5 L, Magnesium 2.4 H Medical History: Reports:: Cancer (breast cancer) Denies:: Diabetes Mellitus Type 1, Diabetes Mellitus Type 2 Assessment and Plan (1) YUDITH (acute kidney injury) Status: Acute Category: Medical Code(s): N17.9 - Acute kidney failure, unspecified (2) COVID-19 Status: Acute Category: Medical Code(s): U07.1 - COVID-19 (3) Elevated troponin Status: Acute Category: Medical Code(s): R77.8 - Other specified abnormalities of plasma proteins (4) Knee fracture, right Status: Acute Category: Medical (5) Lumbar compression fracture Status: Acute Qualifiers: Encounter type: initial encounter Lumbar vertebra fracture level: L2 Qualified Code(s): S32.020A - Wedge compression fracture of second lumbar vertebra, initial encounter for closed fracture Category: Medical Code(s): S32.000A - Wedge compression fracture of unspecified lumbar vertebra, initial encounter for closed fracture (6) 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tion, site not specified Category: Medical Code(s): N39.0 - Urinary tract infection, site not specified - Assessment and plan all Dx Assessment and Plan for all problems:: Pharmacokinetic dosing service Objective: Patient: Floor: Age: 86 yo Serum creatinine: 1.90 mg/dL Height: 61.0 Inches Weight (kg): 62
--- NOTE | 2021-12-17 10:27 | HMH.ITSTN ---
Spoke to patients nurse Slick -- patient is in step down and she can not leave the floor right now. I advised second install technician comes in at noon and Ct was ordered routine. I did the chest xray and advised will come back around noon to take down for CT scan
[2021-12-18] VITALS (8 sets, daily range): BP systolic 102–124; BP diastolic 49–72; PULSE 73–108; RESP 12–22; TEMP 36.6–37.4; O2SAT 95–97
--- NOTE | 2021-12-18 05:39 | PC.NURSE ---
Pt has been tachycardic this shift at times. Other VSS. Has remained on 2L O2 NC with sats in mid to upper 90s. (R) foot noted to be edematous. Pt'd daughter stated that the swelling is new. Pt has not had BM this shift. Has been turned Q2 hr. Oral care provided. F/C draining to bedside with yellow urine. Some sediment noted. MD Greer rounded this shift. No other concerns. Will continue to monitor.
[2021-12-18 07:11] LABS: Anion Gap 12.5 mEq/L (5-15); Calcium 7.7 mg/dl (8.4-10.2); Carbon Dioxide 16 mmol/L (22.0-30.0); Creatinine Clearance Estimated 39 mL/min (50-200); Estimated Glomerular Filt Rate 59 ml/min (>60); GFR (African American) 72 ML/MIN (>60); Glucose 97 mg/dl (74-100); Potassium 4.5 mmoL/L (3.5-5.1)
[2021-12-18 07:13] LABS: Chloride 126 mmol/L (98-107); Sodium 150 mmol/L (136-145)
[2021-12-18 07:14] LABS: Blood Urea Nitrogen 83 mg/dl (7-17)
[2021-12-18 07:16] LABS: Basophils # 0.1 K/mm3 (0-0.2); Basophils % 0.2 % (0.1-2.0); Hematocrit 31.3 % (37.0-47.0); Hemoglobin 9.6 g/dL (12.2-16.2); Lymphocytes # 1.4 K/mm3 (0.7-4.5); Lymphocytes % 4.2 % (10-50); Mean Corpuscular HGB Conc 30.6 g/dL (31.8-35.4); Mean Corpuscular Hemoglobin 32.3 pg (27.0-31.2); Mean Corpuscular Volume 105.6 fl (81-99); Monocytes # 0.6 K/mm3 (0.1-1.0); Monocytes % 1.9 % (1.7-9.3); Neutrophils # 32.1 K/mm3 (1.8-7.8); Neutrophils % 93.8 % (37.0-80.0); Platelet Count 68 K/mm3 (142-424); Red Blood Count 2.96 M/mm3 (4.20-5.40); Red Cell Distribution Width 16.4 % (11.5-17.5); White Blood Count 34.2 K/mm3 (4.8-10.8)
[2021-12-18 07:25] LABS: MANUAL DIFFERENTIAL MANUAL DIFFERENTIAL (MANUAL DIFF)
[2021-12-18 07:47] LABS: Lymphocytes % 5 % (10-50); Monocytes % 4 % (2-9); Neutrophils % 87 % (42-76); Nucleated Red Blood Cells 2; Platelet Estimate Marked Decrease; Total Cells Counted 100
[2021-12-18 07:48] LABS: Macrocytosis 1+
[2021-12-18 07:49] LABS: Acanthocytes 1+; Poikilocytosis 2+
[2021-12-18 07:50] LABS: Burr Cells 1+; Rouleaux 1+
--- NOTE | 2021-12-18 09:18 | HMH.ACPN2 ---
Internal Medicine - PN: Subj *Date: 12/18/21 *Time: 08:00 Interval history: pt laying in bed family at bedside Exam Vital signs and Labs for Last 24 Hours: Temp Pulse Resp BP Pulse Ox 98.2 F 73 20 105/49 L 97 12/18/21 08:00 12/18/21 08:00 12/18/21 08:00 12/18/21 08:00 12/18/21 08:00 Laboratory Results - last 24 hr 12/18/21 06:44: WBC 34.2 H*, RBC 2.96 L, Hgb 9.6 L, Hct 31.3 L, MCV 105.6 H, MCH 32.3 H, MCHC 30.6 L, RDW 16.4, Plt Count 68 L D, MPV 13.0 H, Neut % (Auto) 93.8 H, Lymph % (Auto) 4.2 L, [place] % (Auto) 1.9, Eos % (Auto) 0.0 L, Baso % (Auto) 0.2, Neut # (Auto) 32.1 H, Lymph # (Auto) 1.4, [place] # (Auto) 0.6, Eos # (Auto) 0.0, Baso # (Auto) 0.1, Total Counted 100, Neutrophils % (Manual) 87 H, Band Neutrophils % 2.0, Lymphocytes % (Manual) 5 L, Monocytes % (Manual) 4, Metamyelocytes % 2.0 H, Nucleated RBCs 2, Platelet Estimate Marked decrease, Poikilocytosis 2+, Macrocytosis 1+, [place] Cells 1+, Acanthocytes (Spur) 1+, Rouleaux 1+ 12/18/21 06:44: Sodium 150 H, Potassium 4.5 D, Chloride 126 H, Carbon Dioxide 16 L, Anion Gap 12.5, BUN 83 H, Creatinine 0.90 D, Estimated Creat Clear 39, Estimated GFR 59, Est GFR ( Amer) 72 D, Glucose 97, Calcium 7.7 L I & O for Last 24 hours: Intake & Output 12/15/21 12/16/21 12/17/21 12/18/21 11:59 11:59 11:59 11:59 Intake Total 1773 / 1773 1224 / 1224 Output Total 1025 / 1025 600 / 600 Balance 748 / 748 624 / 624 Weight 135 lb 9 oz 136 lb 9.6 oz 136 lb 7.458 oz Microbiology Reports for the Last 24 Hours: Microbiology 12/16/21 02:45 Blood Blood Culture - Final Staphylococcus aureus 12/16/21 02:45 Blood Blood Culture - Preliminary Staphylococcus aureus 12/16/21 02:45 Urine,Catheterized Urine Culture - Final NO GROWTH AFTER 48 HOURS - Constitutional no acute distress, thin - *Routine HEENT Exam Head: Present: normocephalic Eye: Present: PERRL ENT: Present: mucous membranes moist - *Routine Neck Exam Present: supple. Absent: lymphadenopathy - *Routine Respiratory Exam Present: CTA bilaterally - *Routine Cardiovascular Exam Present: murmur - *Routine Abdominal Exam Present: soft, normoactive bowel sounds. Absent: tenderness - *Routine Extremities Exam Absent: cyanosis, clubbing, edema - *Routine Skin Exam Present: warm. Absent: rash - *Routine Neurological Exam Present: alert Assessment and Plan (1) YUDITH (acute kidney injury) Status: Acute Category: Medical Code(s): N17.9 - Acute kidney failure, unspecified (2) COVID-19 Status: Acute Category: Medical Code(s): U07.1 - COVID-19 (3) Elevated troponin Status: Acute Category: Medical Code(s): R77.8 - Other specified abnormalities of plasma proteins (4) Knee fracture, right Status: Acute Category: Medical (5) Lumbar compression fracture Status: Acute Qualifiers: Encounter type: initial encounter Lumbar vertebra fracture level: L2 Qualified Code(s): S32.020A - Wedge compression fracture of second lumbar vertebra, initial encounter for closed fracture Category: Medical Code(s): S32.000A - Wedge compression fracture of unspecified lumbar vertebra, initial encounter for closed fracture (6) 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
--- NOTE | 2021-12-18 09:37 | HMH.PHACONS ---
- Pharmacy Consult Date: 12/18/21 Time: 09:37 Referring provider: DR PEDRO Reason for Consult:: VANCOMYCIN DOSING ADJUSTMENT Allergies and ADEs:: Allergies Allergy/AdvReac Type Severity Reaction Status Date / Time No Known Allergies Allergy Unverified 10/01/17 14:27 Home Medications:: Home Medications Medication Instructions Recorded Confirmed Type LORazepam [Lorazepam 2mg Tablet] 1 mg PO QID 10/21/18 12/16/21 History Dexlansoprazole [Dexilant] 60 mg PO DAILY 12/16/21 12/16/21 History Escitalopram Oxalate [Lexapro] 10 mg PO DAILY 12/16/21 12/16/21 History Furosemide [Furosemide 40MG tAB*] 40 mg PO DAILY 12/16/21 12/16/21 History Oxybutynin Chloride [Oxybutynin 5 mg PO HS 12/16/21 12/16/21 History Chloride ER] Trazodone HCl 50 mg PO HS 12/16/21 12/16/21 History ondansetron HCL [Ondansetron 4mg 4 mg PO Q4HP PRN 12/16/21 12/16/21 History tab*] Height: 1.55 m Weight: 61.9 kg Laboratory Results:: Laboratory Results - last 24 hr 12/18/21 06:44: WBC 34.2 H*, RBC 2.96 L, Hgb 9.6 L, Hct 31.3 L, MCV 105.6 H, MCH 32.3 H, MCHC 30.6 L, RDW 16.4, Plt Count 68 L D, MPV 13.0 H, Neut % (Auto) 93.8 H, Lymph % (Auto) 4.2 L, [place] % (Auto) 1.9, Eos % (Auto) 0.0 L, Baso % (Auto) 0.2, Neut # (Auto) 32.1 H, Lymph # (Auto) 1.4, [place] # (Auto) 0.6, Eos # (Auto) 0.0, Baso # (Auto) 0.1, Total Counted 100, Neutrophils % (Manual) 87 H, Band Neutrophils % 2.0, Lymphocytes % (Manual) 5 L, Monocytes % (Manual) 4, Metamyelocytes % 2.0 H, Nucleated RBCs 2, Platelet Estimate Marked decrease, Poikilocytosis 2+, Macrocytosis 1+, [place] Cells 1+, Acanthocytes (Spur) 1+, Rouleaux 1+ 12/18/21 06:44: Sodium 150 H, Potassium 4.5 D, Chloride 126 H, Carbon Dioxide 16 L, Anion Gap 12.5, BUN 83 H, Creatinine 0.90 D, Estimated Creat Clear 39, Estimated GFR 59, Est GFR ( Amer) 72 D, Glucose 97, Calcium 7.7 L Medical History: Reports:: Cancer (breast cancer) Denies:: Diabetes Mellitus Type 1, Diabetes Mellitus Type 2 Assessment and Plan (1) YUDITH (acute kidney injury) Status: Acute Category: Medical Code(s): N17.9 - Acute kidney failure, unspecified (2) COVID-19 Status: Acute Category: Medical Code(s): U07.1 - COVID-19 (3) Elevated troponin Status: Acute Category: Medical Code(s): R77.8 - Other specified abnormalities of plasma proteins (4) Knee fracture, right Status: Acute Category: Medical (5) Lumbar compression fracture Status: Acute Qualifiers: Encounter type: initial encounter Lumbar vertebra fracture level: L2 Qualified Code(s): S32.020A - Wedge compression fracture of second lumbar vertebra, initial encounter for closed fracture Category: Medical Code(s): S32.000A - Wedge compression fracture of unspecified lumbar vertebra, initial encounter for closed fracture (6) 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tion, site not specified Category: Medical Code(s): N39.0 - Urinary tract infection, site not specified - Assessment and plan all Dx Assessment and Plan for all problems:: MAJOR IMPROVEMENT IN CREATININE CLEARANCE AND SERUM CREATININE. RECOMMEND CHANGING VANCOMYCIN 750 MG Q48H TO VANCOMYCIN 1000 MG Q36H TO OBTAIN an expected Cpeak of 32.1 mcg/ml and an expected Ctrough of 10.45 mcg/ml. START ON 12/18
--- NOTE | 2021-12-18 10:30 | SW/DCPLANNER ---
Addendum entered by [facility] 12/28/21 09:34: The plan for this patient is to discharge to [facility] this AM for SNF level of care. Patient does not require an additional covid family. Addendum entered by [facility] 12/26/21 13:11: Margarita hutchison/ [facility] spoke w/ patient and her daughter regarding Hospice services. Patient and daughter have agreed to discharge to [facility] for SNF level of care:PT/OT and IV antibiotics. I have faxed updated information to Natalia hutchison/ [facility]: precert will be started today. Addendum entered by [facility] 12/26/21 10:24: Kenya Lincoln and myself had a discussion with patient and daughter this AM regarding SNF level of care at discharge or home with Hospice. Daughter stated that she would need to speak with patient and her siblings prior to making any decisions. I will follow up with daughter this afternoon regarding discharge plans. Addendum entered by [facility] 12/22/21 12:36: I have updated Natalia Abelman w/ [facility] regarding this patient. Patient is not currently ready for discharge and will require prior auth once medically stable. I will continue to follow up with patients family, MD and [facility]. Addendum entered by [facility] 12/20/21 10:10: [facility] has accepted this patient once medically stable for discharge. Addendum entered by [facility] 12/19/21 14:48: Natalia Abelbrenden hutchison/ [facility] is currently reviewing patient information. Addendum entered by [facility] 12/19/21 11:17: Patients daughter is agreeable to placement at [facility] due to being the only facility with a COVID unit. Patient information has been faxed:I will follow up with Natalia Peraza at [facility], patients family and MD. Discharge date is unknown at this time. Addendum entered by [facility] 12/19/21 08:03: Lorin hutchison/ [facility] has stated that she can not accept this patient due to COVID positive. I will follow up with patients family regarding other facilities for SNF level of care. Addendum entered by [facility] 12/18/21 13:09: [facility] is currently reviewing patient information and is requesting to know length of time needed for IV antibiotics once cultures result. I will continue to follow up with Lorin. Original Note: Yared Hernandes: patients daughter expressed an interest in SNF placement at time of discharge. Daughter stated that she is only interested in [facility] at this time. PT/OT evaluation will be ordered for today. Discharge date is unknown at this time. Information has been faxed to Lorin hutchison/ [facility]. I have attempted to contact patients daughter: no answer at this time.
--- NOTE | 2021-12-18 13:46 | HMH.OTEV ---
OT Inpatient Evaluation Rehab OT IP Evaluation Start: 12/18/21 11:20 Freq: ONCE Status: Complete Protocol: Document 12/18/21 13:36 [facility] (Rec: 12/18/21 13:46 [facility] [id number]) Rehab OT IP Assessment Subjective History Pt oriented x 2 on arrival. Pt agreeable to engage in therapy evaluation. Pt's daughter present and supportive. Pt was admitted via ED due to progressive weakness, falls, and sepsis on 12/16/21. The following information was copied from history and physical report: pt was seen in the er with hx of progressive weakness and had falls with back and knee pain-ems called out for weakness. pt's daughter reports pt fell last week and has gotten progessive weak since fall. pt c/o bilateral knee pain. pt is alert to self and place brought by family with weakness - fell last week with knee and back pain - last ambulated 2 days ago - dec po intake but no chest pain or vomiting pt was found to have sepsis with shock and was admitted to [facility] for treatment and eval Pt's daughter reports prior to being hospitalized the patient lived with her daugther. Daughter claims pt was able to walk independently without equipment and was independent with all ADLs prior to becoming ill. Daughter does reports pt was dependent upon her for completion of all IADLs. Subjective I don't want to. Pt resting in bed. Pt required max assist x 2 to complete bed mobility and go from supine to sitting at eob. Pt required max assist to maintain static sitting
--- NOTE | 2021-12-18 14:00 | HMH.PTEV ---
Physical Therapy Evaluation Rehab PT IP Evaluation Start: 12/18/21 11:19 Freq: ONCE Status: Active Protocol: Document 12/18/21 13:00 SETH (Rec: 12/18/21 14:00 SETH [id number]) Subjective/History History History Pt is an 86 y/o female admitted to [facility] thru ED by family. Per family pt was fully independent ~ 1-2 weeks ago but fell at home causing pain in back and R knee. Pt continued to become week after fall and was finally taken to ER. Admitted w/ septic shock Subjective Subjective Pt very somnolent and unable to keep eyes open Rehab PT IP Eval Objective Appearance Patient Behavior Sedated,Confused Patient Orientation Name,Birthday Difficulty following instructions severe Speech Pattern Soft-Spoken,Mumbled Ambulation Patient Able to Ambulate No Balance Ability to Arise Unable Sitting Balance Leans or slides in chair Dynamic Sitting Balance Ability Poor Transfers Bed Transfer Ability Maximum x 2 (75% assist) Rehab PT IP prob,goals,plan Problems Date of Evaluation: 12/18/21 PT IP Problems Bed Mobility,Transfers,Gait, Balance,Self care,Safety Rehab Potential Rehab Potential Poor Equipment Needs Assistive Devices Rolling / Wheeled Walker Plan PT Intervention Plan Bed Mobility,Transfers,Gait, Balance,Self care,Safety, Therapeutic Exercise PT Plan Frequency BID Duration LOS Discharge Goals Bed Transfer Ability Maximum x 2 (75% assist) Sit to Stand Chair Transfer Ability Maximum x 2 (75% assist) Discharge Plan PT Discharge Plan At this time prognosis of therapy is guarded - pt is max x 2 for simple bed mobility - per pt's family who is a nurse pt was modified independent prior to admission . Therefore it is not unreasonable to feel that pt will be able to return to this baseline level of function once the underlying sepsis has been alleviated. Therefore pt would benefit from skilled therapy at this time and
--- NOTE | 2021-12-18 14:17 | HMH.ORTHPN ---
Subjective Date: 12/18/21 Time: 12:45 Principal diagnosis: Medial condyle fracture, right knee Interval history: Patient is an 86-year-old female admitted to the acute inpatient service from the [facility] ER on 12/16/2021 secondary to multiple falls/sepsis. Evaluation in the ER demonstrated an essentially nondisplaced small medial condyle fracture of the right knee. This afternoon the patient is lying comfortably in bed and her daughter is present at the bedside. She is still unable to provide a history but is more communicative today; she reports pain in her right knee with movement. Her daughter states that she has not vocalized any particular concerns/complaints and has been more alert since yesterday. PN: Obj Ex Vital signs: Temp Pulse Resp BP Pulse Ox 98.2 F 73 20 105/49 L 97 12/18/21 08:00 12/18/21 08:00 12/18/21 08:00 12/18/21 08:00 12/18/21 08:00 - Constitutional no acute distress, cooperative - Routine HEENT Exam Head: Present: normocephalic, atraumatic Eye: Present: EOMI, PERRL ENT: Present: mucous membranes moist - Routine Neck Exam Present: supple, trachea midline. Absent: JVD, lymphadenopathy - Routine Respiratory Exam Absent: accessory muscle use, respiratory distress Comments: Symmetric chest movement, able to speak in complete sentences - Routine Cardiovascular Exam Present: RRR Comments: Normal peripheral pulses - Routine Abdominal Exam Present: soft. 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 The skin is intact. No erythema, ecchymosis, induration, edema, or lacerations noted. There is 1+ knee effusion present. The medial and lateral compartments of the knee are mildly tender to palpation. The medial femoral condyle is tender to palpation. Range of motion unable to be tested due to patient's altered mental status. Knee joint is ligamentously stable. Thigh and calf are soft and nontender; Homans' sign is negative. No clinical evidence of DVT noted. Posterior tibial and dorsalis pedis pulses 1+ bilaterally. - Routine Skin Exam Present: intact, warm, normal turgor. 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 Greer; discussed the clinical findings and treatment plan with the patient and her daughter. Continue conservative management with rest, ice, elevation, activity modification, use of the knee immobilizer, and pain medication/NSAIDs as needed. We have recommended the patient remain nonweightbearing on the right lower extremity with the use of a knee immobilizer, plan to transition to hinged range of motion knee brace locked in extension. Continue PT/OT. Continue medical management as per Dr. Prince.
--- NOTE | 2021-12-18 15:01 | PC.NURSE ---
PICC line ordered per Dr. Prince. At this time pt. platelet count is 69. Waiting for response from PCP to proceed.
--- NOTE | 2021-12-18 15:54 | PC.NURSE ---
Pt is alert to self and place. Lungs are clear, bowel sounds are hypoactive x4. She remains on 2L NC with O2 sats measuring > 95%. She has been turned q2hrs. Oral care provided as needed. Knee immobilizer in place to RLE. Her mccann is to bedside draining clear, light yellow urine. Approx 2100 mls out so far. 1 loose bm noted this shift. Barrier cream applied to bottom as a precautionary measure. She has scattered bruising to her body. She reports pain when turning or repositioning. Morphine administered per mar x1 with relief noted on reassessment. Appetite has been poor with her eating < 25% of meals. Sinus tach on telemetry. Bed locked and in the lowest position, call light within reach.
[2021-12-19] VITALS (7 sets, daily range): BP systolic 119–153; BP diastolic 69–85; PULSE 76–116; RESP 18–20; TEMP 36.6–38.1; O2SAT 95–98; BMI 18.6
--- NOTE | 2021-12-19 03:13 | PC.NURSE ---
whenever turn pt (although pt will not turn to right side) or lift/touch right upper extremity, pt moans and grimaces, when asked pt if arms hurts in various areas pt says yes each time, will alert MD in am when rounds in order to possibly obtain xray of arm as pt did fall prior to admission
[2021-12-19 07:29] LABS: Basophils # 0.1 K/mm3 (0-0.2); Basophils % 0.2 % (0.1-2.0); Hematocrit 32.5 % (37.0-47.0); Hemoglobin 9.9 g/dL (12.2-16.2); Lymphocytes % 4.3 % (10-50); Mean Corpuscular HGB Conc 30.5 g/dL (31.8-35.4); Mean Corpuscular Hemoglobin 32.4 pg (27.0-31.2); Mean Corpuscular Volume 106.2 fl (81-99); Mean Platelet Volume 11.2 fl (7.4-10.4); Monocytes # 0.5 K/mm3 (0.1-1.0); Monocytes % 1.9 % (1.7-9.3); Neutrophils # 22.1 K/mm3 (1.8-7.8); Neutrophils % 93.5 % (37.0-80.0); Platelet Count 70 K/mm3 (142-424); Red Blood Count 3.06 M/mm3 (4.20-5.40); Red Cell Distribution Width 16.5 % (11.5-17.5); White Blood Count 23.6 K/mm3 (4.8-10.8)
[2021-12-19 07:33] LABS: MANUAL DIFFERENTIAL MANUAL DIFFERENTIAL (MANUAL DIFF)
[2021-12-19 07:42] LABS: Anion Gap 9.3 mEq/L (5-15); Blood Urea Nitrogen 65 mg/dl (7-17); Calcium 8.3 mg/dl (8.4-10.2); Carbon Dioxide 21 mmol/L (22.0-30.0); Chloride 121 mmol/L (98-107); Creatinine Clearance Estimated 28 mL/min (50-200); Estimated Glomerular Filt Rate 68 ml/min (>60); GFR (African American) 82 ML/MIN (>60); Glucose 91 mg/dl (74-100); Potassium 3.3 mmoL/L (3.5-5.1); Sodium 148 mmol/L (136-145)
[2021-12-19 08:34] LABS: Lymphocytes % 3 % (10-50); Macrocytosis 2+; Monocytes % 4 % (2-9); Neutrophils % 93 % (42-76); Platelet Estimate Normal; Total Cells Counted 100
[2021-12-19 08:35] LABS: Anisocytosis 1+
[2021-12-19 09:00] LABS: Peripheral Smear Review Scanned Result
--- NOTE | 2021-12-19 11:04 | DIET.NUTRFU ---
Addendum entered by Annalee Guillen RD, LD 12/19/21 13:14: Saw patient after lunch, hadn't touched meal, drank 1/2 pepsi. Told daughter to save for later. Based on her not wearing teeth, changed her diet to MSOFT chopped. Ordered cottage cheese and fruit for dinner along with the ensure. Also spoke to daughter about appetite/mood and sleeping. Daughter reports she does not sleep and is depressed about her macular degeneration and causing her to be less independent. Will talk to Doctor Suresh to see if remeron tx maybe appropriate to help with sleep/mood and appetite. RD did explain it can talk couple weeks to 30 days to effect appetite. Original Note: Patient and daughter indicated poor appetite to [employer] today. Poor intake for last couple months. Upon visit daughter present, patient did answer most questions appropriately. Patient explained she is just not hungry, denied any swallowing difficulties or heartburn pain. She does have PPI in place for possible GERD. She refuses to complete a scope which was recommended last admit. She does not want to wear teeth, soft foods ordered. Reviewed food preferences she dislikes spicy foods or any peppers. Dislikes scrambled eggs and homemade oats. Likes pancakes and instant oatmeal. Likes strawberry yogurt. Daughter claims she would try some ground meat at lunch, ordered ground chicken with gravy, grilled cheese, jello, mashed potatoes. She also agreed to try ensure vanilla. Based on decrease in meal intake, possible weight loss and low BMI her MNA score is 6, provider was notified on malnutrition. Will review lunch intake and determine if ground is better tolerated to meet needs. Will start Ensure TID to provide additional nutrition. Stacy will continue to help with menu selection.
--- NOTE | 2021-12-19 13:51 | HMH.ACPN2 ---
Internal Medicine - PN: Subj *Date: 12/19/21 *Time: 20:19 Interval history: 86-year-old female patient resting in bed quietly she denies any pain or shortness of breath during the night, daughter is at bedside. Daughter reports patient has not been eating very much, she reports she has not been eating well with a decreased appetite for the past year or so, primary care attempted to order an EGD patient refused. Patient will not discuss topic just states I am not hungry. Encouraged to consume more of meals and discussed patient's likes and dislikes, patient does report she likes peanut butter and staff will locate. Blood cultures x2 reveal staph aureus and she has been receiving vancomycin IV, urine culture is negative at 48 hours Exam Vital signs and Labs for Last 24 Hours: Temp Pulse Resp BP Pulse Ox 97.8 F 103 H 18 141/78 H 96 12/19/21 12:00 12/19/21 12:00 12/19/21 12:00 12/19/21 12:00 12/19/21 12:00 Laboratory Results - last 24 hr 12/19/21 06:50: WBC 23.6 H* D, RBC 3.06 L, Hgb 9.9 L, Hct 32.5 L, MCV 106.2 H, MCH 32.4 H, MCHC 30.5 L, RDW 16.5, Plt Count 70 L, MPV 11.2 H, Neut % (Auto) 93.5 H, Lymph % (Auto) 4.3 L, Hunt % (Auto) 1.9, Eos % (Auto) 0.0 L, Baso % (Auto) 0.2, Neut # (Auto) 22.1 H, Lymph # (Auto) 1.0, Hunt # (Auto) 0.5, Eos # (Auto) 0.0, Baso # (Auto) 0.1, Total Counted 100, Neutrophils % (Manual) 93 H, Lymphocytes % (Manual) 3 L, Monocytes % (Manual) 4, Platelet Estimate Normal, Anisocytosis 1+, Macrocytosis 2+ 12/19/21 06:50: Sodium 148 H, Potassium 3.3 L D, Chloride 121 H, Carbon Dioxide 21 L, Anion Gap 9.3, BUN 65 H, Creatinine 0.80, Estimated Creat Clear 28, Estimated GFR 68, Est GFR ( Amer) 82, Glucose 91, Calcium 8.3 L I & O for Last 24 hours: Intake & Output 12/16/21 12/17/21 12/18/21 12/19/21 23:59 23:59 23:59 23:59 Intake Total 2877 / 2877 2942 / 2942 240 / 240 Output Total 450 / 650 900 / 1175 2875 / 2875 925 / 925 Balance -450 / -650 1977 / 1702 67 / 67 -685 / -685 Weight 135 lb 9 oz 136 lb 7.458 oz 98 lb 8 oz - Constitutional no acute distress, thin, chronically ill appearing - *Routine HEENT Exam Head: Present: normocephalic Eye: Present: EOMI ENT: Present: mucous membranes moist - *Routine Neck Exam Present: trachea midline. Absent: tracheal deviation - *Routine Respiratory Exam Present: CTA bilaterally. Absent: accessory muscle use - *Routine Cardiovascular Exam Present: RRR, murmur - *Routine Abdominal Exam Present: soft, normoactive bowel sounds. Absent: tenderness, rigid - *Routine Extremities Exam Present: edema, pulses intact. Absent: cyanosis, clubbing Comments: Knee Immoblilizer in place RLE - *Routine Skin Exam Present: intact, dry. Absent: cyanosis, erythema - *Routine Neurological Exam Present: alert, oriented X3. Absent: altered mental status Assessment and Plan (1) YUDITH (acute kidney injury) Status: Acute Category: Medical Code(s): N17.9 - Acute kidney failure, unspecified (2) COVID-19 Status: Acute Category: Medical Code(s): U07.1 - COVID-19 (3) Elevated troponin Status: Acute Category: Medical Code(s): R77.8 - Other specified abnormalities of plasma proteins (4) Knee fracture, right Status: Acute Category: Medical (5) Lumbar compression fracture Status: Acute Qualifiers: Encounter type: initial encounter Lumbar vertebra fracture level: L2 Qualified Code(s): S32.020A - Wedge compression fracture of second lumbar vertebra, initial encounter for closed fracture Category: Medical Code(s): S32.000A - Wedge compression fracture of unspecified lumbar vertebra, initial encounter for closed fracture (6) 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
--- NOTE | 2021-12-19 14:43 | HMH.ORTHPN ---
Subjective Date: 12/19/21 Time: 09:00 Principal diagnosis: Medial condyle fracture, right knee Interval history: Patient is an 86-year-old female admitted to the acute inpatient service from the [facility] ER on 12/16/2021 secondary to multiple falls/sepsis. Evaluation in the ER demonstrated an essentially nondisplaced small medial condyle fracture of the right knee which is being treated nonoperatively. This morning the patient is lying comfortably in bed and her daughter is present at the bedside. She is still unable to provide a history and does not respond verbally, but responds to physical stimuli. Her daughter states that she has not vocalized any particular concerns/complaints. She states that she has been drinking well but has not had much of an appetite. She denies any other symptoms or concerns at this time. PN: Obj Ex Vital signs: Temp Pulse Resp BP Pulse Ox 97.8 F 103 H 18 141/78 H 96 12/19/21 12:00 12/19/21 12:00 12/19/21 12:00 12/19/21 12:00 12/19/21 12:00 - Constitutional no acute distress, thin, cooperative - Routine HEENT Exam Head: Present: normocephalic, atraumatic Eye: Present: EOMI, PERRL ENT: Present: mucous membranes moist - Routine Neck Exam Present: supple, full ROM, trachea midline. Absent: JVD, lymphadenopathy - Routine Respiratory Exam Absent: accessory muscle use, respiratory distress Comments: symmetric chest movement - Routine Cardiovascular Exam Present: RRR Comments: Normal peripheral pulses - Routine Abdominal Exam Present: soft. 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 The skin is intact. No erythema, ecchymosis, induration, edema, or lacerations noted. There is 1+ knee effusion present. The medial and lateral compartments of the knee are mildly tender to palpation. The medial femoral condyle is tender to palpation. Range of motion unable to be tested due to patient's altered mental status. Knee joint is ligamentously stable. Thigh and calf are soft and nontender; Homans' sign is negative. No clinical evidence of DVT noted. Posterior tibial and dorsalis pedis pulses 1+ bilaterally. - Routine Skin Exam Present: intact, warm, normal turgor. 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 Continue conservative management with rest, ice, elevation, activity modification, use of the knee immobilizer, and pain medication/NSAIDs as needed. We have recommended the patient remain nonweightbearing on the right lower extremity with the use of a knee immobilizer; toe-touch weightbearing acceptable if patient is unable to remain nonweightbearing on her right lower extremity. Plan to transition to hinged range of motion knee brace locked in extension. Continue PT/OT. Continue medical management as per Dr. Prince.
--- NOTE | 2021-12-19 14:59 | PC.NURSE ---
Per Dr. Prince hold PICC order until pt. plt count is improved.
--- NOTE | 2021-12-19 16:55 | PC.NURSE ---
Patient resting in bed with eyes closed, alert to person only, denies any cp or soa, FC patent and draining clear yellow urine at bedside, right knee immoblizer in place, patient has been turned q2h this shift, daughter at bedside, PT worked with patient today and was able to sit on side of bed for a brief period, no BM noted this shift, heel protectors removed by daughter, vss, will continue to monitor.
--- NOTE | 2021-12-19 21:34 | PC.NURSE ---
RN aware of temp or 100.5.
[2021-12-20] VITALS (7 sets, daily range): BP systolic 92–164; BP diastolic 45–86; PULSE 66–120; RESP 16–26; TEMP 36.6–37.7; O2SAT 93–98; BMI 25.5
--- NOTE | 2021-12-20 04:54 | PC.NURSE ---
pt has rested most of shift, remains on 2L NC with O2 sats 93-95%, HR 66-111, has not complained of any pain, was febrile at beginning of shift and was treated per DEC, pt has experienced some difficulty with swallowing pills this shift, pt's daughter states that this has not been a problem before, mccann remains in place with 900 out this shift
[2021-12-20 06:43] LABS: Basophils # 0.2 K/mm3 (0-0.2); Basophils % 0.7 % (0.1-2.0); Eosinophils # 0.2 K/mm3 (0.0-0.4); Eosinophils % 0.5 % (0.1-12.0); Hematocrit 30.6 % (37.0-47.0); Hemoglobin 9.8 g/dL (12.2-16.2); Lymphocytes % 3.6 % (10-50); Mean Corpuscular HGB Conc 32.1 g/dL (31.8-35.4); Mean Corpuscular Hemoglobin 32.6 pg (27.0-31.2); Mean Corpuscular Volume 101.5 fl (81-99); Mean Platelet Volume 12.1 fl (7.4-10.4); Monocytes # 0.6 K/mm3 (0.1-1.0); Neutrophils # 25.3 K/mm3 (1.8-7.8); Neutrophils % 93.1 % (37.0-80.0); Platelet Count 98 K/mm3 (142-424); Red Blood Count 3.01 M/mm3 (4.20-5.40); Red Cell Distribution Width 16.1 % (11.5-17.5); White Blood Count 27.2 K/mm3 (4.8-10.8)
[2021-12-20 06:49] LABS: MANUAL DIFFERENTIAL MANUAL DIFFERENTIAL (MANUAL DIFF)
[2021-12-20 06:55] LABS: Anion Gap 9.8 mEq/L (5-15); Blood Urea Nitrogen 47 mg/dl (7-17); Calcium 8.2 mg/dl (8.4-10.2); Carbon Dioxide 20 mmol/L (22.0-30.0); Chloride 119 mmol/L (98-107); Creatinine Clearance Estimated 39 mL/min (50-200); Estimated Glomerular Filt Rate 95 ml/min (>60); GFR (African American) 115 ML/MIN (>60); Glucose 116 mg/dl (74-100); Sodium 146 mmol/L (136-145)
[2021-12-20 07:19] LABS: Potassium 2.8 mmoL/L (3.5-5.1)
--- NOTE | 2021-12-20 07:19 | PC.NURSE ---
received call from lab reporting K 2.8. Name and verified. Dr. Prince notified and will be at the BS soon.
--- NOTE | 2021-12-20 09:41 | HMH.ACPN2 ---
Internal Medicine - PN: Subj *Date: 12/20/21 *Time: 17:58 Interval history: 86-year-old female resting in bed quietly with eyes closed, she does awaken to verbal stimuli. She does complain of generalized pain and daughter reports she did eat part of her breakfast this morning. Dietary has discussed with patient food likes/dislikes and is attempting to make better food choices. Knee immobilizer in place Ortho is visiting daily. Discussed discharge to rehab facility when patient is ready, daughter and patient are in agreement with this. Patient did refuse bilateral lower extremity venous Dopplers, only states I did not want it done. Exam Vital signs and Labs for Last 24 Hours: Temp Pulse Resp BP Pulse Ox 97.8 F 105 H 18 107/66 L 96 12/20/21 08:00 12/20/21 08:00 12/20/21 08:00 12/20/21 08:00 12/20/21 08:00 Laboratory Results - last 24 hr 12/20/21 06:30: WBC 27.2 H*, RBC 3.01 L, Hgb 9.8 L, Hct 30.6 L, MCV 101.5 H, MCH 32.6 H, MCHC 32.1, RDW 16.1, Plt Count 98 L D, MPV 12.1 H, Neut % (Auto) 93.1 H, Lymph % (Auto) 3.6 L, Clinch % (Auto) 2.0, Eos % (Auto) 0.5, Baso % (Auto) 0.7, Neut # (Auto) 25.3 H, Lymph # (Auto) 1.0, Clinch # (Auto) 0.6, Eos # (Auto) 0.2, Baso # (Auto) 0.2 12/20/21 06:30: Sodium 146 H, Potassium 2.8 L*, Chloride 119 H, Carbon Dioxide 20 L, Anion Gap 9.8, BUN 47 H D, Creatinine 0.60 D, Estimated Creat Clear 39, Estimated GFR 95, Est GFR ( Amer) 115 D, Glucose 116 H D, Calcium 8.2 L I & O for Last 24 hours: Intake & Output 12/17/21 12/18/21 12/19/21 12/20/21 23:59 23:59 23:59 23:59 Intake Total 2877 / 2877 2942 / 2942 1616 / 1616 1109 / 1109 Output Total 900 / 1175 2875 / 2875 2275 / 2275 900 / 900 Balance 1976 / 170 67 / 67 -659 / -659 209 / 209 Weight 136 lb 7.458 oz 98 lb 8 oz 135 lb 6 oz - Constitutional no acute distress, chronically ill appearing - *Routine HEENT Exam Head: Present: normocephalic Eye: Present: EOMI ENT: Present: mucous membranes moist - *Routine Neck Exam Present: trachea midline. Absent: tracheal deviation - *Routine Respiratory Exam Present: decreased breath sounds. Absent: accessory muscle use - *Routine Cardiovascular Exam Present: RRR, murmur - *Routine Abdominal Exam Present: soft, normoactive bowel sounds. Absent: firm - *Routine Extremities Exam Present: edema, pulses intact. Absent: cyanosis, clubbing Comments: Right knee immobilizer in place - *Routine Skin Exam Present: dry. Absent: cyanosis, erythema - *Routine Neurological Exam Present: alert, oriented X3. Absent: motor deficit - Routine Psychiatric Exam Present: normal affect, normal thought process. Absent: auditory hallucinations Assessment and Plan (1) YUDITH (acute kidney injury) Status: Acute Category: Medical Code(s): N17.9 - Acute kidney failure, unspecified (2) COVID-19 Status: Acute Category: Medical Code(s): U07.1 - COVID-19 (3) Elevated troponin Status: Acute Category: Medical Code(s): R77.8 - Other specified abnormalities of plasma proteins (4) Knee fracture, right Status: Acute Category: Medical (5) Lumbar compression fracture Status: Acute Qualifiers: Encounter type: initial encounter Lumbar vertebra fracture level: L2 Qualified Code(s): S32.020A - Wedge compression fracture of second lumbar vertebra, initial encounter for closed fracture Category: Medical Code(s): S32.000A - Wedge compression fracture of unspecified lumbar vertebra, initial encounter for closed fracture (6) 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
[2021-12-20 11:38] LABS: Vancomycin,Trough 6.2 ug/mL (5.0-10.0)
[2021-12-20 12:10] LABS: Lymphocytes % 8 % (10-50); Monocytes % 1 % (2-9); Neutrophils % 91 % (42-76); Total Cells Counted 100
[2021-12-20 12:11] LABS: Macrocytosis 1+; Platelet Estimate Normal
[2021-12-20 12:12] LABS: Anisocytosis 1+
--- NOTE | 2021-12-20 14:51 | PC.NURSE ---
rounded on patient, relayed change of room to family at bedside. patient currently resting. no needs, concerns or questions at this time.
--- NOTE | 2021-12-20 14:54 | PC.NURSE ---
report given to Mario Louis RN
[2021-12-20 15:14] LABS: Procalcitonin 0.648 ng/mL (0.0-2.0)
[2021-12-20 16:08] LABS: Vancomycin,Peak 19.5 ug/ml (11-39)
--- NOTE | 2021-12-20 16:33 | HMH.PHACONS ---
- Pharmacy Consult Date: 12/20/21 Time: 16:33 Referring provider: DR. SANABRIA Reason for Consult:: VANCOMYCIN LEVEL AND DOSING CHANGE Allergies and ADEs:: Allergies Allergy/AdvReac Type Severity Reaction Status Date / Time No Known Allergies Allergy Unverified 10/01/17 14:27 Home Medications:: Home Medications Medication Instructions Recorded Confirmed Type LORazepam [Lorazepam 2mg Tablet] 1 mg PO BID 10/21/18 12/18/21 History Dexlansoprazole [Dexilant] 60 mg PO DAILY 12/16/21 12/16/21 History Escitalopram Oxalate [Lexapro] 10 mg PO DAILY 12/16/21 12/16/21 History Furosemide [Furosemide 40MG tAB*] 40 mg PO DAILY 12/16/21 12/16/21 History Oxybutynin Chloride [Oxybutynin 5 mg PO HS 12/16/21 12/16/21 History Chloride ER] Trazodone HCl 50 mg PO HS 12/16/21 12/16/21 History ondansetron HCL [Ondansetron 4mg 4 mg PO Q4HP PRN 12/16/21 12/16/21 History tab*] Height: 1.55 m Weight: 61.405 kg Laboratory Results:: Laboratory Results - last 24 hr 12/20/21 06:30: WBC 27.2 H*, RBC 3.01 L, Hgb 9.8 L, Hct 30.6 L, MCV 101.5 H, MCH 32.6 H, MCHC 32.1, RDW 16.1, Plt Count 98 L D, MPV 12.1 H, Neut % (Auto) 93.1 H, Lymph % (Auto) 3.6 L, Sac % (Auto) 2.0, Eos % (Auto) 0.5, Baso % (Auto) 0.7, Neut # (Auto) 25.3 H, Lymph # (Auto) 1.0, Sac # (Auto) 0.6, Eos # (Auto) 0.2, Baso # (Auto) 0.2, Total Counted 100, Neutrophils % (Manual) 91 H, Lymphocytes % (Manual) 8 L, Monocytes % (Manual) 1 L, Platelet Estimate Normal, Anisocytosis 1+, Macrocytosis 1+ 12/20/21 06:30: Sodium 146 H, Potassium 2.8 L*, Chloride 119 H, Carbon Dioxide 20 L, Anion Gap 9.8, BUN 47 H D, Creatinine 0.60 D, Estimated Creat Clear 39, Estimated GFR 95, Est GFR ( Amer) 115 D, Glucose 116 H D, Calcium 8.2 L 12/20/21 10:35: Vancomycin Trough 6.2 12/20/21 10:35: Procalcitonin 0.648 12/20/21 15:10: Vancomycin Peak 19.5 Medical History: Reports:: Cancer (breast cancer) Denies:: Diabetes Mellitus Type 1, Diabetes Mellitus Type 2 Assessment and Plan (1) YUDITH (acute kidney injury) Status: Acute Category: Medical Code(s): N17.9 - Acute kidney failure, unspecified (2) COVID-19 Status: Acute Category: Medical Code(s): U07.1 - COVID-19 (3) Elevated troponin Status: Acute Category: Medical Code(s): R77.8 - Other specified abnormalities of plasma proteins (4) Knee fracture, right Status: Acute Category: Medical (5) Lumbar compression fracture Status: Acute Qualifiers: Encounter type: initial encounter Lumbar vertebra fracture level: L2 Qualified Code(s): S32.020A - Wedge compression fracture of second lumbar vertebra, initial encounter for closed fracture Category: Medical Code(s): S32.000A - Wedge compression fracture of unspecified lumbar vertebra, initial encounter for closed fracture (6) 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tion, site not specified Category: Medical Code(s): N39.0 - Urinary tract infection, site not specified (10) Cachectic Status: Acute Category: Medical Code(s): R64 - Cachexia (11) Severe protein-calorie malnutrition Status: Acute Category: Medical Code(s): E43 - Unspecified severe protein-calorie malnutrition (12) Staphylococcus aureus bacteremia Status: Acute Category: Medical C
--- NOTE | 2021-12-20 16:37 | HMH.ORTHPN ---
Subjective Date: 12/20/21 Time: 15:00 Principal diagnosis: Medial condyle fracture, right knee Interval history: Patient is an 86-year-old female admitted to the acute inpatient service from the [facility] ER on 12/16/2021 secondary to multiple falls/sepsis. She was found to have a nondisplaced small medial condyle fracture of the right knee which is being treated nonoperatively. This afternoon the patient is lying comfortably in bed and her daughter is present at the bedside. She is still unable to provide a history but responds to physical stimuli. Her daughter states that she has complained of pain in both knees, but otherwise does not have any specific concerns. She denies any other symptoms or concerns at this time. PN: Obj Ex Vital signs: Temp Pulse Resp BP Pulse Ox 99.8 F H 112 H 26 H 92/56 L 96 12/20/21 16:00 12/20/21 16:00 12/20/21 16:00 12/20/21 16:00 12/20/21 16:00 - Constitutional no acute distress, cooperative - Routine HEENT Exam Head: Present: normocephalic, atraumatic Eye: Present: EOMI, PERRL ENT: Present: mucous membranes moist - Routine Neck Exam Present: supple, full ROM, trachea midline. Absent: JVD, lymphadenopathy - Routine Respiratory Exam Absent: accessory muscle use, respiratory distress Comments: Symmetric chest movement - Routine Cardiovascular Exam Present: RRR Comments: Normal peripheral pulses - Routine Abdominal Exam Present: soft. Absent: tenderness - Routine Extremities Exam Present: pulses intact. 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 The skin is intact. No erythema, ecchymosis, induration, edema, or lacerations noted. There is 1+ knee effusion present. The medial and lateral compartments of the knee are mildly tender to palpation. The medial femoral condyle is tender to palpation. Range of motion unable to be tested due to patient's altered mental status. Knee joint is ligamentously stable. Thigh and calf are soft and nontender; Homans' sign is negative. No clinical evidence of DVT noted. Posterior tibial and dorsalis pedis pulses 1+ bilaterally. - Routine Skin Exam Present: intact, warm, normal turgor. 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 We have recommended the patient remain nonweightbearing on the right lower extremity with the use of a knee immobilizer; toe-touch weightbearing is acceptable if patient is unable to remain nonweightbearing on her right lower extremity. Plan to transition to hinged range of motion knee brace locked in extension. Continue PT/OT. Continue medical management as per Dr. Prince.
--- NOTE | 2021-12-20 17:54 | PC.NURSE ---
1754-pt resting in bed at this time drinking ensure w/out difficulty, pt does not want to eat anything else other than ensure at this time, pt remains on 2l/nc, vss, diminished ls noted, denies soa or chest pain, no pain reported at this time, f/c draining dk urine at bedside, last run of IV potassium infusing at this time and pt gerald well, pt NSR on telemetry, no acute distress noted at this time, will continue to monitor
[2021-12-21] VITALS (7 sets, daily range): BP systolic 107–119; BP diastolic 54–64; PULSE 100–123; RESP 14–18; TEMP 36.4–38.2; O2SAT 97–100; BMI 25.5
--- NOTE | 2021-12-21 09:00 | XR_ITS ---
FINAL REPORT CLINICAL HISTORY: fall, left wrist pain FINDINGS: LEFT WRIST Three views demonstrate no acute fracture or dislocation. The bones are osteopenic. There is a deformity of the distal radius which is likely due to a prior fracture. There is probably a chronic ulnar styloid process fracture. There are moderate and severe degenerative changes. There are soft tissue calcifications. There are vascular calcifications. IMPRESSION: Degenerative change. Presumed prior fractures. No acute fracture. Reviewed, Interpreted and Dictated by Dorian Patel III, MD Transcribed by Marychuy Roberto Authenticated by Dorian Patel III, MD on 12/21/2021 01:06:56 PM [facility]
--- NOTE | 2021-12-21 09:00 | XR_ITS ---
FINAL REPORT CLINICAL HISTORY: fall, right wrist pain FINDINGS: RIGHT WRIST Three views demonstrate no acute fracture or dislocation. The bones are osteopenic. There is a deformity of the distal radius which is likely due to a prior fracture. 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 There are moderate and severe degenerative changes. IMPRESSION: Degenerative change. Presumed prior fractures. No acute fracture. Reviewed, Interpreted and Dictated by Dorian Patel III, MD Transcribed by Marychuy Roberto Authenticated by Dorian Patel III, MD on 12/21/2021 01:06:55 PM [facility]
--- NOTE | 2021-12-21 09:02 | HMH.ORTHPN ---
Subjective Date: 12/21/21 <Ashlie Damon - 12/21/21 09:03> Time: 08:40 <Ashlie Damon - 12/21/21 09:03> Principal diagnosis: Medial condyle fracture, right knee <Ashlie Damon - 12/21/21 09:03> Interval history: Patient is an 86-year-old female admitted to the acute inpatient service from the [facility] ER on 12/16/2021 secondary to multiple falls/sepsis. She was found to have a nondisplaced small medial condyle fracture of the right knee which is being treated nonoperatively in a knee immobilizer. This morning the patient is lying comfortably in bed and her daughter is present at the bedside. She is still unable to provide a history but is able to open her eyes and responds to some verbal questions. Her daughter states that she has continued to complain of pain in both knees, as well as pain in both wrists. She states that she did not rest well last night due to pain. She states that the patient has been drinking well but has not had much of an appetite and has complained of nausea, but has not had any episodes of vomiting. She denies any other symptoms or concerns at this time. <Ashlie Damon - 12/21/21 09:05> PN: Obj Ex Vital signs: Temp Pulse Resp BP Pulse Ox 99.4 F 113 H 18 119/60 97 12/21/21 12:00 12/21/21 12:00 12/21/21 12:00 12/21/21 12:00 12/21/21 12:00 <Mani Greer - 12/21/21 16:11> Temp Pulse Resp BP Pulse Ox 98.7 F 109 H 17 108/58 L 100 12/21/21 04:00 12/21/21 04:00 12/21/21 04:00 12/21/21 04:00 12/21/21 04:00 <Ashlie Damon - 12/21/21 09:03> - Constitutional no acute distress, cooperative <Ashlie Damon - 12/21/21 11:19> - Routine HEENT Exam Head: Present: normocephalic, atraumatic <Ashlie Damon - 12/21/21 11:19> Eye: Present: EOMI, PERRL <Ashlie Damon 12/21/21 11:19> ENT: Present: mucous membranes moist <Ashlie Damon 12/21/21 11:19> - Routine Neck Exam Present: supple, full ROM, trachea midline. Absent: JVD, lymphadenopathy <Ashlie Damon 12/21/21 11:19> - Routine Respiratory Exam Absent: accessory muscle use, respiratory distress <Ashlei Damon 12/21/21 11:19> Comments: Symmetric chest movement <Ashlie Damon 12/21/21 11:19> - Routine Cardiovascular Exam Present: RRR <Ashlie Damon 12/21/21 11:19> Comments: Normal peripheral pulses <Ashlie Damon 12/21/21 11:19> - Routine Abdominal Exam Present: soft. Absent: tenderness <Ashlie Damon 12/21/21 11:19> - Routine Extremities Exam Present: pulses intact, normal capillary refill <Ashlie Damon 12/21/21 11:19> Comments: Upon examination of the right knee: There is a well-healed midline scar from previous total knee arthroplasty. The skin is intact. No erythema, ecchymosis, induration, edema, or lacerations noted. There is 1+ knee effusion present. The medial and lateral compartments of the knee are mildly tender to palpation. The medial femoral condyle is tender to palpation. Range of motion unable to be tested due to patient's altered mental status. Knee joint is ligamentously stable. Thigh and calf are soft and nontender; Homans' sign is negative. No clinical evidence of DVT noted. Posterior tibial and dorsalis pedis pulses 1+ bilaterally. Upon examination of the bilateral wrists/hands: The skin is intact. No lacerations, abrasions, ecchymosis, or wounds noted. The right wrist is nontender to palpation. The left wrist is mildly tender to palpation over the distal radius/ulna. The elbow, forearm, and fingers are nontender to palpation bilaterally. Range of motion of the wrist, fingers, and elbow is unable to be tested due to patient's altered mental status. Radial pulses 2+ bilaterally; capillary refill is brisk. <Ashlie Damon 12/21/21 11:19> - Routine Skin Exam Present: intact, warm, normal turgor. Absent: erythema, jaundice, ecchymosis <Ashlie Damon - 12/21/21 11:19> - Routine Neurological Exa
--- NOTE | 2021-12-21 09:23 | HMH.ACPN2 ---
Internal Medicine - PN: Subj *Date: 12/21/21 *Time: 10:39 Interval history: 86-year-old female resting in bed quietly, daughter at bedside. Patient is complaining of bilateral wrist pain, and abdomen is slightly distended does have good bowel sounds. Daughter reports she has not had a bowel movement in several days. Exam Vital signs and Labs for Last 24 Hours: Temp Pulse Resp BP Pulse Ox 98.7 F 109 H 17 108/58 L 100 12/21/21 04:00 12/21/21 04:00 12/21/21 04:00 12/21/21 04:00 12/21/21 04:00 Laboratory Results - last 24 hr 12/20/21 06:30: Total Counted 100, Neutrophils % (Manual) 91 H, Lymphocytes % (Manual) 8 L, Monocytes % (Manual) 1 L, Platelet Estimate Normal, Anisocytosis 1+, Macrocytosis 1+ 12/20/21 10:35: Vancomycin Trough 6.2 12/20/21 10:35: Procalcitonin 0.648 12/20/21 15:10: Vancomycin Peak 19.5 I & O for Last 24 hours: Intake & Output 12/18/21 12/19/21 12/20/21 12/21/21 23:59 23:59 23:59 23:59 Intake Total 2942 / 2942 1616 / 1616 1429 / 1429 180 / 180 Output Total 2875 / 2875 2275 / 2275 1600 / 2100 500 / 500 Balance 67 / 67 -659 / -659 -171 / -671 -320 / -320 Weight 98 lb 8 oz 135 lb 6 oz 135 lb 3.2 oz - Constitutional no acute distress, chronically ill appearing - *Routine HEENT Exam Head: Present: normocephalic Eye: Present: EOMI ENT: Present: mucous membranes moist - *Routine Neck Exam Present: trachea midline. Absent: tracheal deviation - *Routine Respiratory Exam Present: decreased breath sounds. Absent: accessory muscle use - *Routine Cardiovascular Exam Present: RRR, murmur - *Routine Abdominal Exam Present: normoactive bowel sounds, distended. Absent: tenderness - *Routine Extremities Exam Present: pulses intact. Absent: cyanosis, clubbing, full ROM Comments: R knee immobilizer in place - *Routine Skin Exam Present: intact, cyanosis, dry. Absent: erythema - *Routine Neurological Exam Present: alert, oriented X3. Absent: motor deficit - Routine Psychiatric Exam Present: normal affect, normal thought process, cooperative. Absent: visual hallucinations Assessment and Plan (1) YUDITH (acute kidney injury) Status: Acute Category: Medical Code(s): N17.9 - Acute kidney failure, unspecified (2) COVID-19 Status: Acute Category: Medical Code(s): U07.1 - COVID-19 (3) Elevated troponin Status: Acute Category: Medical Code(s): R77.8 - Other specified abnormalities of plasma proteins (4) Knee fracture, right Status: Acute Category: Medical (5) Lumbar compression fracture Status: Acute Qualifiers: Encounter type: initial encounter Lumbar vertebra fracture level: L2 Qualified Code(s): S32.020A - Wedge compression fracture of second lumbar vertebra, initial encounter for closed fracture Category: Medical Code(s): S32.000A - Wedge compression fracture of unspecified lumbar vertebra, initial encounter for closed fracture (6) 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tion, site not specified Category: Medical Code(s): N39.0 - Urinary tract infection, site not specified (10) Cachectic Status: Acute Category: Medical Code(s): R64 - Cachexia (11) Severe protein-calorie malnutrition Status: Acute Category: Medical C
--- NOTE | 2021-12-21 10:31 | XR_ITS ---
FINAL REPORT TECHNIQUE: Single view chest CLINICAL HISTORY: PICC PLACEMENT COMPARISON: 12/17/2021 FINDINGS: A single view of the chest was obtained. There is a right PICC with the tip in the lower SVC. The heart and mediastinum are within normal limits. There is a large hiatal hernia. Left base atelectasis or pneumonia is seen. There is no pneumothorax. There is a large hiatal hernia. Osseous structures demonstrate degenerative changes of the shoulders with probable calcific tendinitis. IMPRESSION: Right PICC with the tip in the lower SVC. Left base atelectasis or pneumonia. Reviewed, Interpreted and Dictated by Dorian Patel III, MD Transcribed by Delfina Tellez Authenticated by Dorian Patel III, MD on 12/21/2021 11:18:49 AM [facility]
--- NOTE | 2021-12-21 10:37 | CT_ITS ---
FINAL REPORT TECHNIQUE: Axial images through the abdomen and pelvis were performed without contrast.This study was performed with techniques to keep radiation doses as low as reasonably achievable, (ALARA). Individualized dose reduction techniques using automated exposure control or adjustment of mA and/or kV according to the patient's size were employed. CLINICAL HISTORY: Ab pain, distention COMPARISON: 12/17/2021 FINDINGS: ABDOMEN: The lung bases demonstrate small pleural effusions and mild bibasilar atelectasis. There is a large hiatal hernia. The heart size is normal. Limited images of the liver are unremarkable. The spleen is normal. No adrenal mass is identified. The aorta is normal in caliber. There is no significant free fluid or adenopathy. Multiple renal cysts are seen including a probable hyperdense left renal cyst. There is no nephrolithiasis. There is no hydronephrosis. There are diffuse vascular calcifications noted. PELVIS: The appendix is not identified. There is a Drew catheter within the urinary bladder. There is no significant free fluid or adenopathy. There is a large amount of stool in the rectum worrisome for fecal impaction. Mild anasarca is noted. IMPRESSION: Large amount of stool in the rectum worrisome for fecal impaction. Reviewed, Interpreted and Dictated by Dorian Patel III, MD Transcribed by Delfina Tellez Authenticated by Dorian Patel III, MD on 12/21/2021 12:31:37 PM [facility]
[2021-12-21 11:47] LABS: Basophils # 0.1 K/mm3 (0-0.2); Basophils % 0.3 % (0.1-2.0); Eosinophils # 0.1 K/mm3 (0.0-0.4); Eosinophils % 0.2 % (0.1-12.0); Hematocrit 31.5 % (37.0-47.0); Hemoglobin 9.9 g/dL (12.2-16.2); Lymphocytes # 1.3 K/mm3 (0.7-4.5); Mean Corpuscular HGB Conc 31.4 g/dL (31.8-35.4); Mean Corpuscular Hemoglobin 32.4 pg (27.0-31.2); Mean Corpuscular Volume 103.2 fl (81-99); Mean Platelet Volume 11.7 fl (7.4-10.4); Monocytes # 0.6 K/mm3 (0.1-1.0); Monocytes % 1.8 % (1.7-9.3); Neutrophils # 29.1 K/mm3 (1.8-7.8); Neutrophils % 93.7 % (37.0-80.0); Platelet Count 173 K/mm3 (142-424); Red Blood Count 3.06 M/mm3 (4.20-5.40); Red Cell Distribution Width 16.3 % (11.5-17.5)
[2021-12-21 11:50] LABS: Chloride 109 mmol/L (98-107)
--- NOTE | 2021-12-21 11:50 | DIET.NUTRFU ---
Patient has been drinking more of the ensure, ordered with all trays to help meet needs. This AM she ate some biscuits and gravy, yogurt and ensure but did report some nausea during rounds. Reviewed labs, she c/o abdominal pain today- CT scan completed. Continues on IVF and ABT tx. Wt stable at 61kg, diuretic tx continued. No dietary changes at this time.
[2021-12-21 11:51] LABS: Potassium 3.7 mmoL/L (3.5-5.1); Sodium 136 mmol/L (136-145)
[2021-12-21 11:53] LABS: Blood Urea Nitrogen 34 mg/dl (7-17); Creatinine Clearance Estimated 39 mL/min (50-200); Estimated Glomerular Filt Rate 95 ml/min (>60); GFR (African American) 115 ML/MIN (>60)
[2021-12-21 11:54] LABS: Anion Gap 9.7 mEq/L (5-15); Calcium 7.7 mg/dl (8.4-10.2); Carbon Dioxide 21 mmol/L (22.0-30.0); Glucose 85 mg/dl (74-100); MANUAL DIFFERENTIAL MANUAL DIFFERENTIAL (MANUAL DIFF)
--- NOTE | 2021-12-21 12:06 | DIET.NUTRFU ---
Reviewing meal intake, had been improving until yesterday only ate 10% at most meals, c/o sore throat. Continues on ABT tx and still awaiting transfer to [facility]. Pt's coccyx/bottom remains reddened w/out open areas-applying cream and polynem dressings as needed, per nursing note on 12/20. Labs indicate hydration is WNL on 12/21 and wt is stable at 113#.He is receiving ensure daily, can increase based on poor intake yesterday.
[2021-12-21 13:47] LABS: Lymphocytes % 4 % (10-50); Monocytes % 2 % (2-9); Neutrophils % 94 % (42-76); Total Cells Counted 100
[2021-12-21 13:48] LABS: Macrocytosis 1+; Platelet Estimate Normal
[2021-12-21 13:49] LABS: Hypochromasia 1+
[2021-12-21 13:54] LABS: Anisocytosis 1+; Polychromasia 1+; Target Cells 1+
[2021-12-22] VITALS (8 sets, daily range): BP systolic 101–117; BP diastolic 47–70; PULSE 79–131; RESP 14–18; TEMP 36.5–37.2; O2SAT 92–98; BMI 26.8
[2021-12-22 06:38] LABS: Basophils # 0.1 K/mm3 (0-0.2); Basophils % 0.2 % (0.1-2.0); Eosinophils # 0.1 K/mm3 (0.0-0.4); Eosinophils % 0.4 % (0.1-12.0); Hematocrit 26.9 % (37.0-47.0); Lymphocytes % 3.4 % (10-50); Mean Corpuscular Hemoglobin 32.2 pg (27.0-31.2); Mean Corpuscular Volume 104.1 fl (81-99); Mean Platelet Volume 11.4 fl (7.4-10.4); Monocytes # 0.5 K/mm3 (0.1-1.0); Monocytes % 1.8 % (1.7-9.3); Neutrophils # 26.9 K/mm3 (1.8-7.8); Neutrophils % 94.1 % (37.0-80.0); Platelet Count 190 K/mm3 (142-424); Red Blood Count 2.59 M/mm3 (4.20-5.40); Red Cell Distribution Width 16.4 % (11.5-17.5); White Blood Count 28.6 K/mm3 (4.8-10.8)
[2021-12-22 06:48] LABS: Anion Gap 4.7 mEq/L (5-15); Blood Urea Nitrogen 33 mg/dl (7-17); Calcium 7.6 mg/dl (8.4-10.2); Carbon Dioxide 23 mmol/L (22.0-30.0); Chloride 113 mmol/L (98-107); Creatinine Clearance Estimated 41 mL/min (50-200); Estimated Glomerular Filt Rate 117 ml/min (>60); GFR (African American) 142 ML/MIN (>60); Glucose 89 mg/dl (74-100); Potassium 3.7 mmoL/L (3.5-5.1); Sodium 137 mmol/L (136-145)
[2021-12-22 06:53] LABS: MANUAL DIFFERENTIAL MANUAL DIFFERENTIAL (MANUAL DIFF)
[2021-12-22 07:52] LABS: Lymphocytes % 4 % (10-50); Monocytes % 2 % (2-9); Neutrophils % 94 % (42-76); Total Cells Counted 100
[2021-12-22 07:54] LABS: Macrocytosis 1+; Platelet Estimate Normal
[2021-12-22 07:55] LABS: Anisocytosis 1+
[2021-12-22 08:02] LABS: Target Cells 1+
--- NOTE | 2021-12-22 09:18 | HMH.ORTHPN ---
Subjective Date: 12/22/21 Time: 08:45 Principal diagnosis: Medial condyle fracture, right knee Interval history: Patient is an 86-year-old female admitted to the acute inpatient service from the [facility] ER on 12/16/2021 secondary to multiple falls/sepsis. She was found to have a nondisplaced small medial condyle fracture of the right knee which is being treated nonoperatively in a knee immobilizer. This morning the patient is lying comfortably in bed and her daughter is present at the bedside. She is much more alert this morning is able to verbally respond to my questions and sustain eye contact. She continues to complain of pain in both knees as well as her back. She states that she is eating and drinking well and was able to rest last night. She denies any other symptoms or concerns at this time. PN: Obj Ex Vital signs: Temp Pulse Resp BP Pulse Ox 98.1 F 118 H 18 117/55 L 97 12/22/21 08:00 12/22/21 08:00 12/22/21 08:00 12/22/21 08:00 12/22/21 08:00 - Constitutional no acute distress, average body habitus, cooperative - Routine HEENT Exam Head: Present: normocephalic, atraumatic Eye: Present: EOMI, PERRL ENT: Present: mucous membranes moist - Routine Neck Exam Present: supple, full ROM, trachea midline. Absent: JVD - Routine Respiratory Exam Absent: accessory muscle use, respiratory distress Comments: Symmetric chest movement, able to speak in complete sentences - Routine Cardiovascular Exam Present: RRR Comments: Normal peripheral pulses - Routine Abdominal Exam Present: soft. Absent: tenderness - Routine Extremities Exam Present: pulses intact, normal capillary refill. Absent: clubbing, calf tenderness Comments: Upon examination of the right knee: There is a well-healed midline scar from previous total knee arthroplasty. The skin is intact. No erythema, ecchymosis, induration, edema, or lacerations noted. There is 1+ knee effusion present. The medial and lateral compartments of the knee are mildly tender to palpation. The medial femoral condyle is tender to palpation. Range of motion not tested due to known fracture/pain. Knee joint is ligamentously stable. Thigh and calf are soft and nontender; Homans' sign is negative. No clinical evidence of DVT noted. Posterior tibial and dorsalis pedis pulses 1+ bilaterally. Sensation to light touch is grossly intact throughout. Patient is actively mobilizing the foot, ankle, and toes. - Routine Skin Exam Present: intact, warm, normal turgor. Absent: cyanosis, erythema, jaundice - Routine Neurological Exam Present: alert, moving all extremities, normal tone, normal speech. 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 Overall she is doing well today from an orthopedic standpoint. The patient is much more alert this morning and is able to respond verbally to my questions and sustain eye contact. We have again discussed he
--- NOTE | 2021-12-22 09:20 | ECG_ITS ---
APPROVED REPORT Exam: Resting ECG HR:127 bpm ECG Measurements Heart Rate 127 AXES IN 159 P -44 QRSd 110 QRS -47 QT 294 T 60 QTc 369 Conclusion SINUS TACHYCARDIA PATTERN CONSISTENT WITH PULMONARY DISEASE LEFT ANTERIOR FASCICULAR BLOCK [QRS AXIS <= -45, QR IN I, RS IN II] NONSPECIFIC T-WAVE ABNORMALITY ABNORMAL ECG UNCONFIRMED REPORT Electronically signed by : Omid Monique MD 12/23/2021 07:41:28
--- NOTE | 2021-12-22 10:13 | DIET.NUTRFU ---
RD saw daughter, she felt appetite was better this morning. Consumed couple bites of eggs, couple bites of sausage gravy and biscuit, whole yogurt and 1/2 ensure so far. She is hoping she will finish the rest after therapy. Yesterday she was complaining of constipation with poor intake, now resolved. Yesterday daughter did indicate she drank at least 2 ensures. Labs reviewed, BUN continues to be elevated at 33H but much improved from 83 on 12/18. Continues to receive vanco and NaCl along with zofran, protonix, lasix and KCL. Provider indicated small amount of swelling to BLE. Weight continues to be stable at 61kg. Will continue to provide ensure TID, daughter to continue filling out menu to provide food preferences.
--- NOTE | 2021-12-22 13:02 | HMH.ACPN2 ---
Internal Medicine - PN: Subj *Date: 12/22/21 *Time: 18:27 Interval history: bc growing staph uc=no growth vanc/cefepime on board wbc remains elevated but trending downward tachy ekg=st good response to mag citrate ortho notes reviewed spoke w/provider no plans for operative intervention appropriate antibiotic coverage is thought to be present Exam Vital signs and Labs for Last 24 Hours: Temp Pulse Resp BP Pulse Ox 98.4 F 111 H 16 102/68 L 96 12/22/21 11:08 12/22/21 12:00 12/22/21 11:08 12/22/21 11:08 12/22/21 11:08 Laboratory Results - last 24 hr 12/21/21 10:50: Total Counted 100, Neutrophils % (Manual) 94 H, Lymphocytes % (Manual) 4 L, Monocytes % (Manual) 2, Platelet Estimate Normal, Polychromasia 1+, Hypochromasia 1+, Anisocytosis 1+, Macrocytosis 1+, Target Cells 1+ 12/22/21 05:40: Sodium 137, Potassium 3.7, Chloride 113 H, Carbon Dioxide 23, Anion Gap 4.7 L, BUN 33 H, Creatinine 0.50 L, Estimated Creat Clear 41, Estimated GFR 117, Est GFR ( Amer) 142 D, Glucose 89, Calcium 7.6 L 12/22/21 06:00: WBC 28.6 H*, RBC 2.59 L, Hct 26.9 L, MCV 104.1 H, MCH 32.2 H, MCHC 31.0 L, RDW 16.4, Plt Count 190, MPV 11.4 H, Neut % (Auto) 94.1 H, Lymph % (Auto) 3.4 L, [place] % (Auto) 1.8, Eos % (Auto) 0.4, Baso % (Auto) 0.2, Neut # (Auto) 26.9 H, Lymph # (Auto) 1.0, [place] # (Auto) 0.5, Eos # (Auto) 0.1, Baso # (Auto) 0.1, Total Counted 100, Neutrophils % (Manual) 94 H, Lymphocytes % (Manual) 4 L, Monocytes % (Manual) 2, Platelet Estimate Normal, Anisocytosis 1+, Macrocytosis 1+, Target Cells 1+ I & O for Last 24 hours: Intake & Output 12/19/21 12/20/21 12/21/21 12/22/21 23:59 23:59 23:59 23:59 Intake Total 1616 / 1616 1429 / 1429 480 / 480 120 / 120 Output Total 2275 / 2275 1600 / 2100 2350 / 2630 280 / 280 Balance -659 / -659 -171 / -671 -1870 / -2150 -160 / -160 Weight 98 lb 8 oz 135 lb 6 oz 135 lb 3.2 oz 142 lb 1 oz - Constitutional no acute distress, chronically ill appearing - *Routine HEENT Exam Head: Present: normocephalic Eye: Present: EOMI, PERRL ENT: Present: mucous membranes moist - *Routine Neck Exam Present: supple. Absent: lymphadenopathy - *Routine Respiratory Exam Present: CTA bilaterally. Absent: accessory muscle use, respiratory distress, wheezes - *Routine Cardiovascular Exam Present: RRR, tachycardia - *Routine Abdominal Exam Present: soft, normoactive bowel sounds. Absent: tenderness - *Routine Extremities Exam Present: tenderness - *Routine Skin Exam Present: warm. Absent: rash - *Routine Neurological Exam Present: alert, oriented X3, vision grossly intact, hearing grossly intact Assessment and Plan (1) YUDITH (acute kidney injury) Status: Acute Category: Medical Code(s): N17.9 - Acute kidney failure, unspecified (2) COVID-19 Status: Acute Category: Medical Code(s): U07.1 - COVID-19 (3) Elevated troponin Status: Acute Category: Medical Code(s): R77.8 - Other specified abnormalities of plasma proteins (4) Knee fracture, right Status: Acute Category: Medical (5) Lumbar compression fracture Status: Acute Qualifiers: Encounter type: initial encounter Lumbar vertebra fracture level: L2 Qualified Code(s): S32.020A - Wedge compression fracture of second lumbar vertebra, initial encounter for closed fracture Category: Medical Code(s): S32.000A - Wedge compression fracture of unspecified lumbar vertebra, initial encounter for closed fracture (6) 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
[2021-12-22 13:52] LABS: Hemoglobin 8.3 g/dL (12.2-16.2)
[2021-12-23] VITALS (20 sets, daily range): BP systolic 90–116; BP diastolic 48–65; PULSE 70–127; RESP 16–20; TEMP 36.3–36.9; O2SAT 95–99; BMI 26.8
[2021-12-23 06:30] LABS: Basophils # 0.1 K/mm3 (0-0.2); Basophils % 0.2 % (0.1-2.0); Eosinophils # 0.1 K/mm3 (0.0-0.4); Eosinophils % 0.2 % (0.1-12.0); Neutrophils % 93.4 % (37.0-80.0)
[2021-12-23 06:34] LABS: Hematocrit 24.7 % (37.0-47.0); Hemoglobin 7.8 g/dL (12.2-16.2); Lymphocytes # 1.2 K/mm3 (0.7-4.5); Lymphocytes % 4.2 % (10-50); Mean Corpuscular HGB Conc 31.5 g/dL (31.8-35.4); Mean Corpuscular Hemoglobin 32.5 pg (27.0-31.2); Mean Corpuscular Volume 103.2 fl (81-99); Mean Platelet Volume 10.5 fl (7.4-10.4); Monocytes # 0.6 K/mm3 (0.1-1.0); Neutrophils # 27.4 K/mm3 (1.8-7.8); Platelet Count 247 K/mm3 (142-424); Red Cell Distribution Width 16.1 % (11.5-17.5); White Blood Count 29.3 K/mm3 (4.8-10.8)
[2021-12-23 06:41] LABS: Anion Gap 6.3 mEq/L (5-15); Blood Urea Nitrogen 25 mg/dl (7-17); Calcium 7.5 mg/dl (8.4-10.2); Carbon Dioxide 23 mmol/L (22.0-30.0); Chloride 111 mmol/L (98-107); Creatinine Clearance Estimated 41 mL/min (50-200); Estimated Glomerular Filt Rate 117 ml/min (>60); GFR (African American) 142 ML/MIN (>60); Glucose 87 mg/dl (74-100); MANUAL DIFFERENTIAL MANUAL DIFFERENTIAL (MANUAL DIFF); Potassium 3.3 mmoL/L (3.5-5.1); Sodium 137 mmol/L (136-145)
[2021-12-23 06:49] LABS: Lymphocytes % 5 % (10-50); Macrocytosis 2+; Neutrophils % 87 % (42-76); Platelet Estimate Normal; Total Cells Counted 100
[2021-12-23 06:50] LABS: Anisocytosis 1+; Hypochromasia 1+
[2021-12-23 09:29] LABS: Vancomycin,Trough 10.7 ug/mL (5.0-10.0)
--- NOTE | 2021-12-23 09:46 | HMH.PHACONS ---
- Pharmacy Consult Date: 12/23/21 Time: 10:13 Referring provider: DR SANABRIA Reason for Consult:: VANCOMYCIN DOSING Allergies and ADEs:: Allergies Allergy/AdvReac Type Severity Reaction Status Date / Time No Known Allergies Allergy Unverified 10/01/17 14:27 Home Medications:: Home Medications Medication Instructions Recorded Confirmed Type LORazepam [Lorazepam 2mg Tablet] 1 mg PO BID 10/21/18 12/18/21 History Dexlansoprazole [Dexilant] 60 mg PO DAILY 12/16/21 12/16/21 History Escitalopram Oxalate [Lexapro] 10 mg PO DAILY 12/16/21 12/16/21 History Furosemide [Furosemide 40MG tAB*] 40 mg PO DAILY 12/16/21 12/16/21 History Oxybutynin Chloride [Oxybutynin 5 mg PO HS 12/16/21 12/16/21 History Chloride ER] Trazodone HCl 50 mg PO HS 12/16/21 12/16/21 History ondansetron HCL [Ondansetron 4mg 4 mg PO Q4HP PRN 12/16/21 12/16/21 History tab*] Height: 1.55 m Weight: 64.438 kg Laboratory Results:: Laboratory Results - last 24 hr 12/22/21 06:00: Hgb 8.3 L D 12/23/21 06:15: WBC 29.3 H*, RBC 2.40 L, Hgb 7.8 L, Hct 24.7 L, MCV 103.2 H, MCH 32.5 H, MCHC 31.5 L, RDW 16.1, Plt Count 247 D, MPV 10.5 H, Neut % (Auto) 93.4 H, Lymph % (Auto) 4.2 L, [place] % (Auto) 2.0, Eos % (Auto) 0.2, Baso % (Auto) 0.2, Neut # (Auto) 27.4 H, Lymph # (Auto) 1.2, [place] # (Auto) 0.6, Eos # (Auto) 0.1, Baso # (Auto) 0.1, Total Counted 100, Neutrophils % (Manual) 87 H, Band Neutrophils % 8.0, Lymphocytes % (Manual) 5 L, Platelet Estimate Normal, Hypochromasia 1+, Anisocytosis 1+, Macrocytosis 2+ 12/23/21 06:15: Sodium 137, Potassium 3.3 L, Chloride 111 H, Carbon Dioxide 23, Anion Gap 6.3, BUN 25 H, Creatinine 0.50 L, Estimated Creat Clear 41, Estimated GFR 117, Est GFR ( Amer) 142, Glucose 87, Calcium 7.5 L 12/23/21 08:15: Vancomycin Trough 10.7 H Medical History: Reports:: Cancer (breast cancer) Denies:: Diabetes Mellitus Type 1, Diabetes Mellitus Type 2 Assessment and Plan (1) YUDITH (acute kidney injury) Status: Acute Category: Medical Code(s): N17.9 - Acute kidney failure, unspecified (2) COVID-19 Status: Acute Category: Medical Code(s): U07.1 - COVID-19 (3) Elevated troponin Status: Acute Category: Medical Code(s): R77.8 - Other specified abnormalities of plasma proteins (4) Knee fracture, right Status: Acute Category: Medical (5) Lumbar compression fracture Status: Acute Qualifiers: Encounter type: initial encounter Lumbar vertebra fracture level: L2 Qualified Code(s): S32.020A - Wedge compression fracture of second lumbar vertebra, initial encounter for closed fracture Category: Medical Code(s): S32.000A - Wedge compression fracture of unspecified lumbar vertebra, initial encounter for closed fracture (6) 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tion, site not specified Category: Medical Code(s): N39.0 - Urinary tract infection, site not specified (10) Cachectic Status: Acute Category: Medical Code(s): R64 - Cachexia (11) Severe protein-calorie malnutrition Status: Acute Category: Medical Code(s): E43 - Unspecified severe protein-calorie malnutrition (12) Staphylococcus aureus bacteremia Status: Acute Category: Medical Code(s): R78.81 - Bacteremia; B95.61 - Methicillin susceptibl
--- NOTE | 2021-12-23 14:26 | HMH.ACPN2 ---
Internal Medicine - PN: Subj *Date: 12/23/21 *Time: 14:26 Interval history: Patient relays an uneventful night. She is alert lucid clear and talkative. Is denying chest pain or shortness of breath. She has a history of rheumatic heart disease and longstanding murmur. She has been tachycardic, we added dose of Cardizem with modest results. Patient's antibiotic regimen includes azithromycin, vancomycin,cefepime Will image the chest again today. Imaging of the abdomen has been done. Her abdomen is soft and without focal tenderness. Cultures are positive for staph. Count remains elevated today at 29.3. Gl[place] has dropped to 7.8. She appears to be subjectively more pale. Exam Vital signs and Labs for Last 24 Hours: Temp Pulse Resp BP Pulse Ox 98.3 F 127 H 18 110/55 L 97 12/23/21 11:06 12/23/21 11:06 12/23/21 11:06 12/23/21 11:06 12/23/21 11:06 Laboratory Results - last 24 hr 12/23/21 06:15: WBC 29.3 H*, RBC 2.40 L, Hgb 7.8 L, Hct 24.7 L, MCV 103.2 H, MCH 32.5 H, MCHC 31.5 L, RDW 16.1, Plt Count 247 D, MPV 10.5 H, Neut % (Auto) 93.4 H, Lymph % (Auto) 4.2 L, [place] % (Auto) 2.0, Eos % (Auto) 0.2, Baso % (Auto) 0.2, Neut # (Auto) 27.4 H, Lymph # (Auto) 1.2, [place] # (Auto) 0.6, Eos # (Auto) 0.1, Baso # (Auto) 0.1, Total Counted 100, Neutrophils % (Manual) 87 H, Band Neutrophils % 8.0, Lymphocytes % (Manual) 5 L, Platelet Estimate Normal, Hypochromasia 1+, Anisocytosis 1+, Macrocytosis 2+ 12/23/21 06:15: Sodium 137, Potassium 3.3 L, Chloride 111 H, Carbon Dioxide 23, Anion Gap 6.3, BUN 25 H, Creatinine 0.50 L, Estimated Creat Clear 41, Estimated GFR 117, Est GFR ( Amer) 142, Glucose 87, Calcium 7.5 L 12/23/21 08:15: Vancomycin Trough 10.7 H I & O for Last 24 hours: Intake & Output 12/20/21 12/21/21 12/22/21 12/23/21 23:59 23:59 23:59 23:59 Intake Total 1429 / 1429 480 / 480 240 / 240 180 / 180 Output Total 1600 / 2100 2350 / 2630 2030 / 2630 600 / 600 Balance -171 / -671 -1870 / -2150 -1790 / -2390 -420 / -420 Weight 135 lb 6 oz 135 lb 3.2 oz 142 lb 1 oz 142 lb 0.983 oz - Constitutional no acute distress, thin, chronically ill appearing - *Routine HEENT Exam Head: Present: normocephalic Eye: Present: EOMI, PERRL ENT: Present: mucous membranes moist - *Routine Neck Exam Present: supple. Absent: lymphadenopathy - *Routine Respiratory Exam Present: CTA bilaterally. Absent: accessory muscle use, respiratory distress, wheezes - *Routine Cardiovascular Exam Present: RRR, tachycardia - *Routine Abdominal Exam Present: soft, normoactive bowel sounds. Absent: tenderness - *Routine Extremities Exam Present: tenderness - *Routine Skin Exam Present: warm. Absent: rash - *Routine Neurological Exam Present: alert, oriented X3, vision grossly intact, hearing grossly intact, normal speech. Absent: altered mental status Assessment and Plan (1) YUDITH (acute kidney injury) Status: Acute Category: Medical Code(s): N17.9 - Acute kidney failure, unspecified (2) COVID-19 Status: Acute Category: Medical Code(s): U07.1 - COVID-19 (3) Elevated troponin Status: Acute Category: Medical Code(s): R77.8 - Other specified abnormalities of plasma proteins (4) Knee fracture, right Status: Acute Category: Medical (5) Lumbar compression fracture Status: Acute Qualifiers: Encounter type: initial encounter Lumbar vertebra fracture level: L2 Qualified Code(s): S32.020A - Wedge compression fracture of second lumbar vertebra, initial encounter for closed fracture Category: Medical Code(s): S32.000A - Wedge compression fracture of unspecified lumbar vertebra, initial encounter for closed fracture (6) 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
[2021-12-24] VITALS (21 sets, daily range): BP systolic 90–127; BP diastolic 45–64; PULSE 83–110; RESP 16–20; TEMP 36.4–38.1; O2SAT 95–99; BMI 26.8
--- NOTE | 2021-12-24 06:00 | XR_ITS ---
PROCEDURE INFORMATION: Exam: XR Chest Exam date and time: 12/24/2021 6:00 AM Age: 86 years old Clinical indication: Shortness of breath and other: Pneumonia sepsis; Additional info: Pna sepsis TECHNIQUE: Imaging protocol: XR of the chest. Views: 1 view. COMPARISON: CR XR CHEST PORTABLE PICC PLAC 12/21/2021 10:36 AM FINDINGS: Tubes, catheters and devices: Right upper extremity PICC terminates in the region of the superior cavoatrial junction. Lungs: Patchy bibasilar airspace opacities. Pleural spaces: Unremarkable. No pleural effusion. No pneumothorax. Heart/Mediastinum: Moderate hiatal hernia. Bones/joints: Unremarkable. IMPRESSION: Patchy bibasilar airspace opacities may reflect atelectasis versus pneumonia.
[2021-12-24 07:15] LABS: Anion Gap 7.8 mEq/L (5-15); Blood Urea Nitrogen 26 mg/dl (7-17); Calcium 7.5 mg/dl (8.4-10.2); Carbon Dioxide 24 mmol/L (22.0-30.0); Chloride 107 mmol/L (98-107); Creatinine Clearance Estimated 41 mL/min (50-200); Estimated Glomerular Filt Rate 95 ml/min (>60); GFR (African American) 115 ML/MIN (>60); Glucose 102 mg/dl (74-100); Sodium 136 mmol/L (136-145)
[2021-12-24 07:20] LABS: Potassium 2.8 mmoL/L (3.5-5.1)
[2021-12-24 07:41] LABS: Basophils # 0.1 K/mm3 (0-0.2); Basophils % 0.3 % (0.1-2.0); Eosinophils # 0.1 K/mm3 (0.0-0.4); Eosinophils % 0.3 % (0.1-12.0); Hematocrit 33.6 % (37.0-47.0); Hemoglobin 10.6 g/dL (12.2-16.2); Lymphocytes # 0.9 K/mm3 (0.7-4.5); Lymphocytes % 3.7 % (10-50); Mean Corpuscular HGB Conc 31.5 g/dL (31.8-35.4); Mean Corpuscular Hemoglobin 31.2 pg (27.0-31.2); Mean Platelet Volume 11.3 fl (7.4-10.4); Neutrophils # 23.4 K/mm3 (1.8-7.8); Neutrophils % 91.8 % (37.0-80.0); Platelet Count 256 K/mm3 (142-424); Red Cell Distribution Width 16.2 % (11.5-17.5); White Blood Count 25.5 K/mm3 (4.8-10.8)
[2021-12-24 07:45] LABS: MANUAL DIFFERENTIAL MANUAL DIFFERENTIAL (MANUAL DIFF)
[2021-12-24 08:35] LABS: Lymphocytes % 4 % (10-50); Monocytes % 1 % (2-9); Neutrophils % 95 % (42-76); Total Cells Counted 100
[2021-12-24 08:37] LABS: Anisocytosis 1+; Macrocytosis 1+; Platelet Estimate Normal
[2021-12-24 08:38] LABS: Hypochromasia 1+; Ovalocytes 1+; Target Cells 1+
--- NOTE | 2021-12-24 09:04 | PC.NURSE ---
Patient's second unit of blood was given during time change if there is a discrepancy.
--- NOTE | 2021-12-24 09:43 | HMH.ACPN2 ---
Internal Medicine - PN: Subj *Date: 12/24/21 *Time: 09:43 Exam Vital signs and Labs for Last 24 Hours: Temp Pulse Resp BP Pulse Ox 98.0 F 105 H 16 104/59 L 97 12/24/21 08:00 12/24/21 08:00 12/24/21 08:00 12/24/21 08:00 12/24/21 08:00 Laboratory Results - last 24 hr 12/23/21 06:15: Blood Type Confirm O Negative 12/23/21 08:15: Vancomycin Trough 10.7 H 12/23/21 14:55: Blood Type O Negative, Antibody Screen Negative, Crossmatch (AHG) See Detail 12/24/21 06:45: WBC 25.5 H*, RBC 3.40 L D, Hgb 10.6 L, Hct 33.6 L, MCV 99.0, MCH 31.2, MCHC 31.5 L, RDW 16.2, Plt Count 256, MPV 11.3 H, Neut % (Auto) 91.8 H, Lymph % (Auto) 3.7 L, [place] % (Auto) 4.0, Eos % (Auto) 0.3, Baso % (Auto) 0.3, Neut # (Auto) 23.4 H, Lymph # (Auto) 0.9, [place] # (Auto) 1.0, Eos # (Auto) 0.1, Baso # (Auto) 0.1, Total Counted 100, Neutrophils % (Manual) 95 H, Lymphocytes % (Manual) 4 L, Monocytes % (Manual) 1 L, Platelet Estimate Normal, Hypochromasia 1+, Anisocytosis 1+, Macrocytosis 1+, Target Cells 1+, Ovalocytes 1+ 12/24/21 06:45: Sodium 136, Potassium 2.8 L*, Chloride 107, Carbon Dioxide 24, Anion Gap 7.8, BUN 26 H, Creatinine 0.60, Estimated Creat Clear 41, Estimated GFR 95, Est GFR ( Amer) 115, Glucose 102 H, Calcium 7.5 L I & O for Last 24 hours: Intake & Output 12/21/21 12/22/21 12/23/21 12/25/21 23:59 23:59 23:59 00:59 Intake Total 480 / 480 240 / 240 5251 / 5251 370 / 370 Output Total 2350 / 2630 2030 / 2630 2500 / 2500 900 / 900 Balance -1870 / -2150 -1790 / -2390 2751 / 2751 -530 / -530 Weight 61.326 kg 64.438 kg 64.438 kg 64.438 kg Assessment and Plan (1) YUDITH (acute kidney injury) Status: Acute Category: Medical Code(s): N17.9 - Acute kidney failure, unspecified (2) COVID-19 Status: Acute Category: Medical Code(s): U07.1 - COVID-19 (3) Elevated troponin Status: Acute Category: Medical Code(s): R77.8 - Other specified abnormalities of plasma proteins (4) Knee fracture, right Status: Acute Category: Medical (5) Lumbar compression fracture Status: Acute Qualifiers: Encounter type: initial encounter Lumbar vertebra fracture level: L2 Qualified Code(s): S32.020A - Wedge compression fracture of second lumbar vertebra, initial encounter for closed fracture Category: Medical Code(s): S32.000A - Wedge compression fracture of unspecified lumbar vertebra, initial encounter for closed fracture (6) 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tion, site not specified Category: Medical Code(s): N39.0 - Urinary tract infection, site not specified (10) Cachectic Status: Acute Category: Medical Code(s): R64 - Cachexia (11) Severe protein-calorie malnutrition Status: Acute Category: Medical Code(s): E43 - Unspecified severe protein-calorie malnutrition (12) Staphylococcus aureus bacteremia Status: Acute Category: Medical Code(s): R78.81 - Bacteremia; B95.61 - Methicillin susceptible Staphylococcus aureus infection as the cause of diseases classified elsewhere (13) Sepsis due to methicillin resistant Staphylococcus aureus (MRSA) Status: Acute Category: Medical Code(s): A41.02 - Sepsis due to Methicillin resistant Staphylococcus aureus (14) Anemia Status: Acute Qualifiers:
--- NOTE | 2021-12-24 13:29 | HMH.ACPN2 ---
Internal Medicine - PN: Subj *Date: 12/24/21 *Time: 13:35 Interval history: looks brighter some confusion acording to daughter hypokalemic at 2.8 hgb 7.8 to 10.6 post 2 units no suggestion of gi blood loss bc=staph aur uc=neg cxr=atel vs pneum ortho course revd Exam Vital signs and Labs for Last 24 Hours: Temp Pulse Resp BP Pulse Ox 97.9 F 95 H 18 127/53 L 96 12/24/21 11:24 12/24/21 11:24 12/24/21 11:24 12/24/21 11:24 12/24/21 11:24 Laboratory Results - last 24 hr 12/23/21 06:15: Blood Type Confirm O Negative 12/23/21 14:55: Blood Type O Negative, Antibody Screen Negative, Crossmatch (AHG) See Detail 12/24/21 06:45: WBC 25.5 H*, RBC 3.40 L D, Hgb 10.6 L, Hct 33.6 L, MCV 99.0, MCH 31.2, MCHC 31.5 L, RDW 16.2, Plt Count 256, MPV 11.3 H, Neut % (Auto) 91.8 H, Lymph % (Auto) 3.7 L, [place] % (Auto) 4.0, Eos % (Auto) 0.3, Baso % (Auto) 0.3, Neut # (Auto) 23.4 H, Lymph # (Auto) 0.9, [place] # (Auto) 1.0, Eos # (Auto) 0.1, Baso # (Auto) 0.1, Total Counted 100, Neutrophils % (Manual) 95 H, Lymphocytes % (Manual) 4 L, Monocytes % (Manual) 1 L, Platelet Estimate Normal, Hypochromasia 1+, Anisocytosis 1+, Macrocytosis 1+, Target Cells 1+, Ovalocytes 1+ 12/24/21 06:45: Sodium 136, Potassium 2.8 L*, Chloride 107, Carbon Dioxide 24, Anion Gap 7.8, BUN 26 H, Creatinine 0.60, Estimated Creat Clear 41, Estimated GFR 95, Est GFR ( Amer) 115, Glucose 102 H, Calcium 7.5 L I & O for Last 24 hours: Intake & Output 03/1012/22/21 12/23/21 12/25/21 23:59 23:59 23:59 00:59 Intake Total 480 / 480 240 / 240 5251 / 5251 370 / 370 Output Total 2350 / 2630 2030 / 2630 2500 / 2500 900 / 900 Balance -1870 / -2150 -1790 / -2390 2751 / 2751 -530 / -530 Weight 135 lb 3.2 oz 142 lb 1 oz 142 lb 0.983 oz 142 lb 0.983 oz - Constitutional chronically ill appearing, cooperative - *Routine HEENT Exam Head: Present: normocephalic Eye: Present: EOMI, PERRL ENT: Present: mucous membranes moist - *Routine Neck Exam Present: supple. Absent: lymphadenopathy - *Routine Respiratory Exam Absent: accessory muscle use, respiratory distress, wheezes - *Routine Cardiovascular Exam Present: RRR - *Routine Abdominal Exam Present: soft, normoactive bowel sounds. Absent: tenderness - *Routine Extremities Exam Present: tenderness. Absent: extremity cold to touch - *Routine Skin Exam Absent: cyanosis, jaundice - *Routine Neurological Exam Present: alert, vision grossly intact, hearing grossly intact Assessment and Plan (1) YUDITH (acute kidney injury) Status: Acute Category: Medical Code(s): N17.9 - Acute kidney failure, unspecified (2) COVID-19 Status: Acute Category: Medical Code(s): U07.1 - COVID-19 (3) Elevated troponin Status: Acute Category: Medical Code(s): R77.8 - Other specified abnormalities of plasma proteins (4) Knee fracture, right Status: Acute Category: Medical (5) Lumbar compression fracture Status: Acute Qualifiers: Encounter type: initial encounter Lumbar vertebra fracture level: L2 Qualified Code(s): S32.020A - Wedge compression fracture of second lumbar vertebra, initial encounter for closed fracture Category: Medical Code(s): S32.000A - Wedge compression fracture of unspecified lumbar vertebra, initial encounter for closed fracture (6) 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
--- NOTE | 2021-12-24 18:34 | PC.NURSE ---
Pt has been pleasantly confused this shift. Pt has had frequent visual hallucinations this shift reported by family and seen by this RN. Pt is easily directed w/ said hallucinations and confusion. Drew cath is drainink, cloudy dark yellow urine w/ sediment. Pt was febrile this shift w/ a temp of 101.2 axillary. Blankets removed, thermostat in room lowered and pt given PO tylenol. Upon reassessment, pt's axillary temp was 98.9. Family has remained at bedside. No other acute changes or complaints, will continue to monitor.
[2021-12-25] VITALS (8 sets, daily range): BP systolic 100–127; BP diastolic 54–64; PULSE 70–117; RESP 14–18; TEMP 36.7–37.7; O2SAT 93–100; BMI 26.8
[2021-12-25 07:04] LABS: Basophils # 0.1 K/mm3 (0-0.2); Basophils % 0.2 % (0.1-2.0); Eosinophils # 0.2 K/mm3 (0.0-0.4); Eosinophils % 0.7 % (0.1-12.0); Hematocrit 33.9 % (37.0-47.0); Hemoglobin 10.6 g/dL (12.2-16.2); Lymphocytes # 0.9 K/mm3 (0.7-4.5); Lymphocytes % 3.1 % (10-50); Mean Corpuscular HGB Conc 31.4 g/dL (31.8-35.4); Mean Corpuscular Hemoglobin 31.5 pg (27.0-31.2); Mean Corpuscular Volume 100.1 fl (81-99); Mean Platelet Volume 10.3 fl (7.4-10.4); Monocytes # 1.2 K/mm3 (0.1-1.0); Monocytes % 3.9 % (1.7-9.3); Neutrophils # 27.8 K/mm3 (1.8-7.8); Neutrophils % 92.1 % (37.0-80.0); Platelet Count 302 K/mm3 (142-424); Red Blood Count 3.38 M/mm3 (4.20-5.40); Red Cell Distribution Width 16.2 % (11.5-17.5); White Blood Count 30.1 K/mm3 (4.8-10.8)
[2021-12-25 07:09] LABS: MANUAL DIFFERENTIAL MANUAL DIFFERENTIAL (MANUAL DIFF)
[2021-12-25 07:12] LABS: Anion Gap 5.2 mEq/L (5-15); Blood Urea Nitrogen 27 mg/dl (7-17); Carbon Dioxide 26 mmol/L (22.0-30.0); Chloride 109 mmol/L (98-107); Creatinine Clearance Estimated 41 mL/min (50-200); Estimated Glomerular Filt Rate 117 ml/min (>60); GFR (African American) 142 ML/MIN (>60); Glucose 109 mg/dl (74-100); Potassium 3.2 mmoL/L (3.5-5.1); Sodium 137 mmol/L (136-145)
[2021-12-25 08:12] LABS: Lymphocytes % 4 % (10-50); Monocytes % 5 % (2-9); Neutrophils % 91 % (42-76); Total Cells Counted 100
[2021-12-25 08:16] LABS: Macrocytosis 1+; Platelet Estimate Normal
[2021-12-25 08:17] LABS: Anisocytosis 1+
[2021-12-25 08:21] LABS: Ovalocytes 1+
--- NOTE | 2021-12-25 09:30 | HMH.ACPN2 ---
Internal Medicine - PN: Subj *Date: 12/25/21 *Time: 09:00 Interval history: pt awakes and answers question hipolito and follows commands Exam Vital signs and Labs for Last 24 Hours: Temp Pulse Resp BP Pulse Ox 98.1 F 82 18 121/61 97 12/25/21 07:45 12/25/21 08:00 12/25/21 07:45 12/25/21 07:45 12/25/21 07:45 Laboratory Results - last 24 hr 12/25/21 06:53: WBC 30.1 H*, RBC 3.38 L, Hgb 10.6 L, Hct 33.9 L, MCV 100.1 H, MCH 31.5 H, MCHC 31.4 L, RDW 16.2, Plt Count 302, MPV 10.3, Neut % (Auto) 92.1 H, Lymph % (Auto) 3.1 L, [place] % (Auto) 3.9, Eos % (Auto) 0.7, Baso % (Auto) 0.2, Neut # (Auto) 27.8 H, Lymph # (Auto) 0.9, [place] # (Auto) 1.2 H, Eos # (Auto) 0.2, Baso # (Auto) 0.1, Total Counted 100, Neutrophils % (Manual) 91 H, Lymphocytes % (Manual) 4 L, Monocytes % (Manual) 5, Platelet Estimate Normal, Anisocytosis 1+, Macrocytosis 1+, Ovalocytes 1+ 12/25/21 06:53: Sodium 137, Potassium 3.2 L, Chloride 109 H, Carbon Dioxide 26, Anion Gap 5.2, BUN 27 H, Creatinine 0.50 L, Estimated Creat Clear 41, Estimated GFR 117, Est GFR ( Amer) 142 D, Glucose 109 H, Calcium 8.0 L I & O for Last 24 hours: Intake & Output 12/22/21 12/23/21 12/24/21 12/25/21 10:59 10:59 11:59 11:59 Intake Total 160 / 160 Output Total 1825 / 1825 Balance -1665 / -1665 Weight 142 lb 0.983 oz - Constitutional no acute distress, chronically ill appearing - *Routine HEENT Exam Head: Present: normocephalic Eye: Present: PERRL ENT: Present: mucous membranes moist - *Routine Neck Exam Present: supple. Absent: lymphadenopathy - *Routine Respiratory Exam Present: decreased breath sounds, rhonchi - *Routine Cardiovascular Exam Present: RRR - *Routine Abdominal Exam Present: soft, normoactive bowel sounds. Absent: tenderness - *Routine Extremities Exam Absent: cyanosis, clubbing, edema - *Routine Skin Exam Present: warm. Absent: rash - *Routine Neurological Exam Present: alert Assessment and Plan (1) YUDITH (acute kidney injury) Status: Acute Category: Medical Code(s): N17.9 - Acute kidney failure, unspecified (2) COVID-19 Status: Acute Category: Medical Code(s): U07.1 - COVID-19 (3) Elevated troponin Status: Acute Category: Medical Code(s): R77.8 - Other specified abnormalities of plasma proteins (4) Knee fracture, right Status: Acute Category: Medical (5) Lumbar compression fracture Status: Acute Qualifiers: Encounter type: initial encounter Lumbar vertebra fracture level: L2 Qualified Code(s): S32.020A - Wedge compression fracture of second lumbar vertebra, initial encounter for closed fracture Category: Medical Code(s): S32.000A - Wedge compression fracture of unspecified lumbar vertebra, initial encounter for closed fracture (6) 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tion, site not specified Category: Medical Code(s): N39.0 - Urinary tract infection, site not specified (10) Cachectic Status: Acute Category: Medical Code(s): R64 - Cachexia (11) Severe protein-calorie malnutrition Status: Acute Category: Medical Code(s): E43 - Unspecified severe protein-calorie malnutrition (12) Staphylococcus aureus bacteremia Status: Acute Category: Medical Co
--- NOTE | 2021-12-25 10:38 | HMH.ORTHPN ---
Subjective Date: 12/25/21 Time: 10:00 Principal diagnosis: Medial condyle fracture, right knee Interval history: Patient is an 86-year-old female admitted to the acute inpatient service from the [facility] ER on 12/16/2021 secondary to multiple falls/sepsis. She was found to have a nondisplaced small medial condyle fracture of the right knee which is being treated nonoperatively in a knee immobilizer. This morning the patient is in a chair at the bedside and her daughter is present. Her daughter reports this is the first time the patient has been out of bed with the assistance of physical therapy since she was admitted. She is less alert this morning, her daughter reports she did not rest well over the weekend and has been intermittently confused. She states that she is eating and drinking well. She denies any other symptoms or concerns at this time. PN: Obj Ex Vital signs: Temp Pulse Resp BP Pulse Ox 98.1 F 82 18 121/61 97 12/25/21 07:45 12/25/21 08:00 12/25/21 07:45 12/25/21 07:45 12/25/21 07:45 - Constitutional no acute distress, cooperative - Routine HEENT Exam Head: Present: normocephalic, atraumatic Eye: Present: EOMI, PERRL ENT: Present: mucous membranes moist - Routine Neck Exam Present: supple, trachea midline. Absent: JVD - Routine Respiratory Exam Absent: accessory muscle use, respiratory distress Comments: Symmetric chest movement - Routine Cardiovascular Exam Present: RRR Comments: Normal peripheral pulses - Routine Abdominal Exam Present: soft. Absent: tenderness - Routine Extremities Exam Present: pulses intact, normal capillary refill. 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 The skin is intact. No erythema, ecchymosis, induration, edema, or lacerations noted. There is 1+ knee effusion present. The medial and lateral compartments of the knee are mildly tender to palpation. The medial femoral condyle is tender to palpation. Range of motion not tested due to known fracture/pain. Knee joint is ligamentously stable. Thigh and calf are soft and nontender; Homans' sign is negative. No clinical evidence of DVT noted. Posterior tibial and dorsalis pedis pulses 1+ bilaterally. - Routine Skin Exam Present: intact, warm, normal turgor. 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 Greer; discussed the clinical findings and treatment plan with the patient and her daughter. We have again discussed her positive blood cultures in the setting of no identifiable source of infection at this time. While clinically there is no obvious evidence of prosthetic joint infection, we have again discussed the option of diagnostic knee aspiration to see if either knee joint could be the source of infection. The patient's daughter again expressed that her mother
--- NOTE | 2021-12-25 11:21 | DIET.NUTRFU ---
RD spoke to daughter today about appetite over the weekend. Nursing noted just bites at a couple meals. Daughter did report she is consistently drinking the ensure TID to help meet needs. Reviewed food preferences again, will provide menu for tomorrow. patient seems more alert and provider encouraged her to get out of bed today. ABT tx for the sepsis is almost complete. Continues to be under COVID isolation but not having any respiratory issues at this time. Labs reviewed- BUN 27H, Cr 0.5L and glucose 109H. She refused to have EDG and DVT test.
--- NOTE | 2021-12-25 11:58 | PC.NURSE ---
PT IS SITTING UP IN THE CHAIR WITH DAUGHTER AT BEDSIDE. PT WAS A MAX ASSIST TO GET OOB TO CHAIR. PT NEEDED TO BE ENCOURAGED TO GET OOB PER STAFF AND DAUGHTER. LUNG SOUNDS CLEAR. ABDOMEN SOFT/NON TENDER WITH ACTIVE BOWEL SOUNDS. MEDICATED PER MAR FOR DISCOMFORT. SMALL STAGE 1 NOTED TO THE COCCYX. PT HAS HAD 2 SMALL/SOFT BOWEL MOVEMENTS THIS SHIFT. KNEE IMMOBILIZER NOTED TO RLE. 1+ EDEMA NOTED TO BLE. PICC NOTED TO THE BRUNA. WILL CONTINUE TO MONITOR.
[2021-12-26] VITALS: BP 103/60; PULSE 90; PULSE 94; RESP 16; TEMP 36.6; O2SAT 90
[2021-12-26 04:00] VITALS: BP 110/61; PULSE 70; PULSE 85; RESP 15; TEMP 36.6; O2SAT 98
[2021-12-26 04:40] VITALS: BMI 28.3
[2021-12-26 07:38] LABS: Basophils % 0.2 % (0.1-2.0); Eosinophils # 0.1 K/mm3 (0.0-0.4); Eosinophils % 0.4 % (0.1-12.0); Lymphocytes # 1.1 K/mm3 (0.7-4.5); Lymphocytes % 5.3 % (10-50); Mean Corpuscular HGB Conc 30.9 g/dL (31.8-35.4); Mean Corpuscular Hemoglobin 31.3 pg (27.0-31.2); Mean Corpuscular Volume 101.4 fl (81-99); Mean Platelet Volume 10.6 fl (7.4-10.4); Monocytes # 0.8 K/mm3 (0.1-1.0); Monocytes % 3.9 % (1.7-9.3); Neutrophils # 19.4 K/mm3 (1.8-7.8); Neutrophils % 90.3 % (37.0-80.0); Platelet Count 274 K/mm3 (142-424); Red Blood Count 2.86 M/mm3 (4.20-5.40); Red Cell Distribution Width 16.1 % (11.5-17.5); White Blood Count 21.4 K/mm3 (4.8-10.8)
[2021-12-26 07:48] LABS: Anion Gap 3.4 mEq/L (5-15); Blood Urea Nitrogen 29 mg/dl (7-17); Calcium 7.5 mg/dl (8.4-10.2); Carbon Dioxide 27 mmol/L (22.0-30.0); Chloride 109 mmol/L (98-107); Creatinine Clearance Estimated 43 mL/min (50-200); Estimated Glomerular Filt Rate 117 ml/min (>60); GFR (African American) 142 ML/MIN (>60); Glucose 91 mg/dl (74-100); Potassium 3.4 mmoL/L (3.5-5.1); Sodium 136 mmol/L (136-145)
[2021-12-26 08:00] VITALS: BP 106/54; PULSE 110; PULSE 94; RESP 16; TEMP 36.6; O2SAT 92; O2SAT 95
[2021-12-26 09:20] LABS: MANUAL DIFFERENTIAL MANUAL DIFFERENTIAL (MANUAL DIFF)
--- NOTE | 2021-12-26 10:06 | HMH.ACPN2 ---
Internal Medicine - PN: Subj *Date: 12/26/21 *Time: 21:58 Interval history: 86-year-old female patient resting quietly in bed with daughter at bedside. She denies any chest pain or respiratory distress during the night and states knee pain is controlled with as needed medications. Discussion with daughter today regarding need to participate in therapy and future discharge to half-way and/or hospice. Daughter reports she will discuss with other family members and they will reach a decision and let medical historian know. Patient is still refusing knee aspiration, potassium will be replenished today. Exam Vital signs and Labs for Last 24 Hours: Temp Pulse Resp BP Pulse Ox 97.9 F 94 H 16 106/54 L 92 L 12/26/21 08:00 12/26/21 08:00 12/26/21 08:00 12/26/21 08:00 12/26/21 08:00 Laboratory Results - last 24 hr 12/26/21 06:45: WBC 21.4 H* D, RBC 2.86 L, Hgb 9.0 L D, Hct 29.0 L, MCV 101.4 H, MCH 31.3 H, MCHC 30.9 L, RDW 16.1, Plt Count 274, MPV 10.6 H, Neut % (Auto) 90.3 H, Lymph % (Auto) 5.3 L, [place] % (Auto) 3.9, Eos % (Auto) 0.4, Baso % (Auto) 0.2, Neut # (Auto) 19.4 H, Lymph # (Auto) 1.1, [place] # (Auto) 0.8, Eos # (Auto) 0.1, Baso # (Auto) 0.0 12/26/21 06:45: Sodium 136, Potassium 3.4 L, Chloride 109 H, Carbon Dioxide 27, Anion Gap 3.4 L, BUN 29 H, Creatinine 0.50 L, Estimated Creat Clear 43, Estimated GFR 117, Est GFR ( Amer) 142, Glucose 91, Calcium 7.5 L I & O for Last 24 hours: Intake & Output 12/23/21 12/24/21 12/25/21 12/26/21 22:59 23:59 23:59 23:59 Intake Total 3610 / 3610 120 / 120 Output Total 1575 / 2100 525 / 525 Balance 2035 / 1510 -405 / -405 Weight 142 lb 0.983 oz 150 lb 6 oz - Constitutional no acute distress, chronically ill appearing - *Routine HEENT Exam Head: Present: normocephalic Eye: Present: EOMI ENT: Present: mucous membranes moist - *Routine Neck Exam Present: trachea midline. Absent: tracheal deviation - *Routine Respiratory Exam Present: decreased breath sounds - *Routine Cardiovascular Exam Present: RRR - *Routine Abdominal Exam Present: soft, normoactive bowel sounds. Absent: tenderness - *Routine Extremities Exam Present: edema, full ROM. Absent: cyanosis, clubbing - *Routine Skin Exam Present: dry, warm. Absent: cyanosis, erythema - *Routine Neurological Exam Present: alert, oriented X3. Absent: motor deficit Assessment and Plan (1) YUDITH (acute kidney injury) Status: Acute Category: Medical Code(s): N17.9 - Acute kidney failure, unspecified (2) COVID-19 Status: Acute Category: Medical Code(s): U07.1 - COVID-19 (3) Elevated troponin Status: Acute Category: Medical Code(s): R77.8 - Other specified abnormalities of plasma proteins (4) Knee fracture, right Status: Acute Category: Medical (5) Lumbar compression fracture Status: Acute Qualifiers: Encounter type: initial encounter Lumbar vertebra fracture level: L2 Qualified Code(s): S32.020A - Wedge compression fracture of second lumbar vertebra, initial encounter for closed fracture Category: Medical Code(s): S32.000A - Wedge compression fracture of unspecified lumbar vertebra, initial encounter for closed fracture (6) 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
[2021-12-26 12:00] VITALS: BP 93/52; PULSE 84; RESP 18; TEMP 36.8; O2SAT 93
[2021-12-26 16:00] VITALS: BP 102/61; PULSE 79; PULSE 90; RESP 17; TEMP 36.6; O2SAT 95
[2021-12-26 19:14] LABS: Lymphocytes % 6 % (10-50); Monocytes % 4 % (2-9); Neutrophils % 90 % (42-76); Nucleated Red Blood Cells 2; Total Cells Counted 100
[2021-12-26 19:15] LABS: Acanthocytes 1+; Anisocytosis 1+; Macrocytosis 1+; Platelet Estimate Normal
[2021-12-26 19:16] LABS: Ovalocytes 1+
[2021-12-26 20:00] VITALS: BP 100/56; PULSE 105; PULSE 70; RESP 15; RESP 16; TEMP 36.6; O2SAT 99
[2021-12-27] VITALS (7 sets, daily range): BP systolic 97–139; BP diastolic 48–81; PULSE 60–102; RESP 15–20; TEMP 36.6–37.3; O2SAT 92–99; BMI 28.8
[2021-12-27 06:50] LABS: Basophils % 0.2 % (0.1-2.0); Eosinophils # 0.1 K/mm3 (0.0-0.4); Eosinophils % 0.5 % (0.1-12.0); Hemoglobin 9.3 g/dL (12.2-16.2); Lymphocytes % 5.1 % (10-50); Mean Corpuscular Hemoglobin 31.9 pg (27.0-31.2); Mean Platelet Volume 10.5 fl (7.4-10.4); Monocytes # 0.7 K/mm3 (0.1-1.0); Monocytes % 3.9 % (1.7-9.3); Neutrophils # 16.6 K/mm3 (1.8-7.8); Neutrophils % 90.3 % (37.0-80.0); Platelet Count 290 K/mm3 (142-424); Red Blood Count 2.91 M/mm3 (4.20-5.40); Red Cell Distribution Width 15.9 % (11.5-17.5); White Blood Count 18.4 K/mm3 (4.8-10.8)
[2021-12-27 07:02] LABS: Anion Gap 4.5 mEq/L (5-15); Blood Urea Nitrogen 35 mg/dl (7-17); Calcium 7.9 mg/dl (8.4-10.2); Carbon Dioxide 27 mmol/L (22.0-30.0); Chloride 108 mmol/L (98-107); Creatinine Clearance Estimated 44 mL/min (50-200); Estimated Glomerular Filt Rate 151 ml/min (>60); GFR (African American) 183 ML/MIN (>60); Glucose 97 mg/dl (74-100); Potassium 3.5 mmoL/L (3.5-5.1); Sodium 136 mmol/L (136-145)
[2021-12-27 07:26] LABS: MANUAL DIFFERENTIAL MANUAL DIFFERENTIAL (MANUAL DIFF)
--- NOTE | 2021-12-27 07:35 | ECG_ITS ---
APPROVED REPORT Exam: Resting ECG HR:112 bpm ECG Measurements Heart Rate 112 AXES MS 181 P -1 QRSd 110 QRS -26 QT 339 T 32 QTc 405 Conclusion SINUS TACHYCARDIA WITH FREQUENT VENTRICULAR PREMATURE COMPLEXES WITH OCCASIONAL SUPRAVENTRICULAR PREMATURE COMPLEXES POSSIBLE LEFT ATRIAL ENLARGEMENT [-0.1mV P-WAVE IN V1/V2] BORDERLINE LEFT AXIS DEVIATION [QRS AXIS < -20] POSSIBLE LEFT VENTRICULAR HYPERTROPHY [VOLTAGE CRITERIA PLUS LAE OR QRS WIDENING] NONSPECIFIC T-WAVE ABNORMALITY ABNORMAL ECG UNCONFIRMED REPORT Electronically signed by : Omid Monique MD 12/28/2021 17:28:23
--- NOTE | 2021-12-27 07:42 | PC.NURSE ---
Patient's daughter came to get this RN and stated that the patient was complaining of chest pain. Patient rates the pain a 9-/10. Patient's blood pressure was 106/52, O2 was 92% on 2LNC, Temp is 97.8 oral, Respirations are 20 and heart rate was 112. Patient describes the pain as pressure. An EKG was obtained and reviewed by Dr. Prnice.
[2021-12-27 09:28] LABS: Vancomycin,Trough 13.8 ug/mL (5.0-10.0)
--- NOTE | 2021-12-27 09:55 | CT_ITS ---
FINAL REPORT TECHNIQUE: Then section axial CT images of the chest were obtained with contrast. Three-D reformatted images were also obtained.This study was performed with techniques to keep radiation doses as low as reasonably achievable (ALARA). Individualized dose reduction techniques using automated exposure control or adjustment of mA and/or kV according to the patient''s size were employed. CLINICAL HISTORY: chest pain since this am COMPARISON: Chest x-ray dated 12/24/2021, CT abdomen and pelvis dated 12/21/2021 FINDINGS: Motion obscures the lower lobe pulmonary artery branches. There is no evidence of pulmonary embolism. There is no evidence of thoracic aortic aneurysm or dissection. There is no evidence of mediastinal or hilar mass or adenopathy. There is a large hiatal hernia. There is bilateral lower lobe atelectasis which has progressed as compared to the prior CT abdomen and pelvis. There are small to moderate bilateral pleural effusions which are worse as compared to the prior CT. Multiple chronic right rib fractures are noted. There are degenerative changes in both shoulders. There is mild anasarca. There is postoperative change in the right anterior chest wall. IMPRESSION: No evidence of pulmonary embolism. Worsening bilateral lower lobe atelectasis and pleural effusions as compared to CT dated 12/21/2021. Reviewed, Interpreted and Dictated by Dorian Patel III, MD Transcribed by Tiffany Barahona Authenticated by Dorian Patel III, MD on 12/27/2021 11:21:30 AM [facility]
--- NOTE | 2021-12-27 10:21 | PC.NURSE ---
PHARMACY OK'D TO GIVE VANC DOSE. WILL HANG WHEN PT RETURNS FROM CT
--- NOTE | 2021-12-27 10:27 | HMH.PHACONS ---
- Pharmacy Consult Date: 12/27/21 Time: 10:27 Referring provider: DR. SANABRIA Reason for Consult:: VANCOMYCIN LEVEL Allergies and ADEs:: Allergies Allergy/AdvReac Type Severity Reaction Status Date / Time No Known Allergies Allergy Unverified 10/01/17 14:27 Home Medications:: Home Medications Medication Instructions Recorded Confirmed Type LORazepam [Lorazepam 2mg Tablet] 1 mg PO BID 10/21/18 12/18/21 History Dexlansoprazole [Dexilant] 60 mg PO DAILY 12/16/21 12/16/21 History Escitalopram Oxalate [Lexapro] 10 mg PO DAILY 12/16/21 12/16/21 History Furosemide [Furosemide 40MG tAB*] 40 mg PO DAILY 12/16/21 12/16/21 History Oxybutynin Chloride [Oxybutynin 5 mg PO HS 12/16/21 12/16/21 History Chloride ER] Trazodone HCl 50 mg PO HS 12/16/21 12/16/21 History ondansetron HCL [Ondansetron 4mg 4 mg PO Q4HP PRN 12/16/21 12/16/21 History tab*] Height: 1.55 m Weight: 69.218 kg Laboratory Results:: Laboratory Results - last 24 hr 12/26/21 06:45: Total Counted 100, Neutrophils % (Manual) 90 H, Lymphocytes % (Manual) 6 L, Monocytes % (Manual) 4, Nucleated RBCs 2, Platelet Estimate Normal, Anisocytosis 1+, Macrocytosis 1+, Ovalocytes 1+, Acanthocytes (Spur) 1+ 12/27/21 06:25: WBC 18.4 H, RBC 2.91 L, Hgb 9.3 L, Hct 30.0 L, MCV 103.0 H, MCH 31.9 H, MCHC 31.0 L, RDW 15.9, Plt Count 290, MPV 10.5 H, Neut % (Auto) 90.3 H, Lymph % (Auto) 5.1 L, [place] % (Auto) 3.9, Eos % (Auto) 0.5, Baso % (Auto) 0.2, Neut # (Auto) 16.6 H, Lymph # (Auto) 1.0, [place] # (Auto) 0.7, Eos # (Auto) 0.1, Baso # (Auto) 0.0 12/27/21 06:25: Sodium 136, Potassium 3.5, Chloride 108 H, Carbon Dioxide 27, Anion Gap 4.5 L, BUN 35 H, Creatinine 0.40 L, Estimated Creat Clear 44, Estimated GFR 151, Est GFR ( Amer) 183 D, Glucose 97, Calcium 7.9 L 12/27/21 08:00: Vancomycin Trough 13.8 H Medical History: Reports:: Cancer (breast cancer) Denies:: Diabetes Mellitus Type 1, Diabetes Mellitus Type 2 Assessment and Plan (1) YUDITH (acute kidney injury) Status: Acute Category: Medical Code(s): N17.9 - Acute kidney failure, unspecified (2) COVID-19 Status: Acute Category: Medical Code(s): U07.1 - COVID-19 (3) Elevated troponin Status: Acute Category: Medical Code(s): R77.8 - Other specified abnormalities of plasma proteins (4) Knee fracture, right Status: Acute Category: Medical (5) Lumbar compression fracture Status: Acute Qualifiers: Encounter type: initial encounter Lumbar vertebra fracture level: L2 Qualified Code(s): S32.020A - Wedge compression fracture of second lumbar vertebra, initial encounter for closed fracture Category: Medical Code(s): S32.000A - Wedge compression fracture of unspecified lumbar vertebra, initial encounter for closed fracture (6) 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tion, site not specified Category: Medical Code(s): N39.0 - Urinary tract infection, site not specified (10) Cachectic Status: Acute Category: Medical Code(s): R64 - Cachexia (11) Severe protein-calorie malnutrition Status: Acute Category: Medical Code(s): E43 - Unspecified severe protein-calorie malnutrition (12) Staphylococcus aureus bacteremia Status: Acute Category: Medical Code(s): R78.81 - Bacteremia; B95.61
[2021-12-27 10:30] LABS: Troponin I 0.61 ng/ml (0.00-0.034)
--- NOTE | 2021-12-27 10:30 | HMH.CNCARD ---
History of Present Illness Consult date: 12/27/21 Requesting physician: John Prince Consult reason: chest pain Chief complaint: chest pain History of present illness: This is an 86-year-old white female who was admitted to the hospital with sepsis. Upon admission to the hospital the patient did have elevated troponins consistent with a non-ST ovation myocardial infarction and also had an echocardiogram which showed severe aortic stenosis with a preserved ejection fraction at 50 to 55% with inferior lateral hypokinesis. The patient had sudden onset of chest pain this morning. She describes this as a pressure sensation across her entire chest. She states that it did not radiate. It was associated with diaphoresis and nausea. She denied any shortness of breath. She states that this was a pretty bad pain. It has since resolved. The patient had a repeat troponin which remained elevated at 0.61. Her EKG is abnormal. She denies any fever or chills. She denies vomiting, diarrhea, PND or orthopnea. She states that she does have some edema. The patient denies any history of coronary disease or CA. [facility] History I have reviewed the patient's past medical history: Yes Medical History: Reports:: Cancer (breast cancer), Hypertension Denies:: Diabetes Mellitus Type 1, Diabetes Mellitus Type 2 *Have you ever received a pneumonia vaccine?: Yes *Have you received a flu vaccine this season?: Yes Other Medical History: Reports: Arthritis, Cataracts Laterality Cases: Right: Mastectomy, Bilateral: Arthroscopy Knee Other Surgeries: Yes: Cholecystectomy - *Social History Last grade of school completed: 7th or 8th Smoking Status: Smoker, status unknown Alcohol Intake: never *Occupational Status:: retired Housing: house Household Members: family *Travel in the last 8 weeks: None Family Hx:: Non-contributory Meds Home Medications Medication Instructions Recorded Confirmed Type LORazepam [Lorazepam 2mg Tablet] 1 mg PO BID 10/21/18 12/18/21 History Dexlansoprazole [Dexilant] 60 mg PO DAILY 12/16/21 12/16/21 History Escitalopram Oxalate [Lexapro] 10 mg PO DAILY 12/16/21 12/16/21 History Furosemide [Furosemide 40MG tAB*] 40 mg PO DAILY 12/16/21 12/16/21 History Oxybutynin Chloride [Oxybutynin 5 mg PO HS 12/16/21 12/16/21 History Chloride ER] Trazodone HCl 50 mg PO HS 12/16/21 12/16/21 History ondansetron HCL [Ondansetron 4mg 4 mg PO Q4HP PRN 12/16/21 12/16/21 History tab*] Allergies Allergy/AdvReac Type Severity Reaction Status Date / Time No Known Allergies Allergy Unverified 10/01/17 14:27 Exam Vital signs and Labs for Last 24 Hours: Temp Pulse Resp BP Pulse Ox 98.8 F 102 H 20 118/59 L 97 12/27/21 08:00 12/27/21 08:00 12/27/21 08:00 12/27/21 08:00 12/27/21 08:00 Laboratory Results - last 24 hr 12/26/21 06:45: Total Counted 100, Neutrophils % (Manual) 90 H, Lymphocytes % (Manual) 6 L, Monocytes % (Manual) 4, Nucleated RBCs 2, Platelet Estimate Normal, Anisocytosis 1+, Macrocytosis 1+, Ovalocytes 1+, Acanthocytes (Spur) 1+ 12/27/21 06:25: WBC 18.4 H, RBC 2.91 L, Hgb 9.3 L, Hct 30.0 L, MCV 103.0 H, MCH 31.9 H, MCHC 31.0 L, RDW 15.9, Plt Count 290, MPV 10.5 H, Neut % (Auto) 90.3 H, Lymph % (Auto) 5.1 L, [place] % (Auto) 3.9, Eos % (Auto) 0.5, Baso % (Auto) 0.2, Neut # (Auto) 16.6 H, Lymph # (Auto) 1.0, [place] # (Auto) 0.7, Eos # (Auto) 0.1, Baso # (Auto) 0.0 12/27/21 06:25: Sodium 136, Potassium 3.5, Chloride 108 H, Carbon Dioxide 27, Anion Gap 4.5 L, BUN 35 H, Creatinine 0.40 L, Estimated Creat Clear 44, Estimated GFR 151, Est GFR ( Amer) 183 D, Glucose 97, Calcium 7.9 L 12/27/21 08:00: Vancomycin Trough 13.8 H I & O for Last 24 hours: Intake & Output 12/24/21 12/25/21 12/26/2116/22 23:59 23:59 23:59 23:59 Intake Total 3610 / 3610 120 / 120 30 / 30 Output Total 1575 / 2100 525 / 925 400 / 400 Balance 2035 / 1510 -405 / -805 -370 / -370 Weight 142 lb 0.983 oz 150 lb 6 oz 152 lb 9.6 oz [place]
--- NOTE | 2021-12-27 10:43 | CA_ITS ---
FINAL REPORT TECHNIQUE: Color Doppler, duplex Doppler and rangel scale sonography of the bilateral neck arterial vasculature was performed. Velocities were measured in the carotid arteries. Stenosis evaluation based on the validated velocity criteria. CLINICAL HISTORY: B carotid bruits, severe Aortic stenosis FINDINGS: The peak systolic velocity of the right common carotid artery is 131 cm/s. The peak systolic velocity of the right internal carotid artery is 163 cm/s and end diastolic velocity 40 cm/s. The ICA/CCA ratio is 1.7. A moderate to large amount of plaque is present. The right external carotid artery is patent. The right vertebral artery is patent with antegrade flow. The peak systolic velocity of the left common carotid artery is 112 cm/s. The peak systolic velocity of the left internal carotid artery is 274 cm/s and end diastolic velocity 50 cm/s. The ICA/CCA ratio is 3.7. A moderate to large amount of plaque is present. The left external carotid artery is patent.The left vertebral artery is patent with antegrade flow. IMPRESSION: Less than 50% right carotid stenosis. 70-99% left carotid stenosis. Bilateral patent vertebral arteries with antegrade flow. If indicated, CTA or MRA could further evaluate. Reviewed, Interpreted and Dictated by Dorian Patel III, MD Transcribed by Marychuy Roberto Authenticated by Dorian Patel III, MD on 12/27/2021 12:48:50 PM [facility]
--- NOTE | 2021-12-27 11:35 | DIET.NUTRFU ---
patient continues to have poor meal intake. Supplements she is consuming ~3/day consistently. Family is now reviewing NH placement or possibly home with hospice. 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 Cardiac team saw her yesterday and recommended a cardiac cath, family and patient declined. She is noted to have +1 edema, wt gain from 61 on 12/21 to 69kg 12/27. Diuretic tx in place. ABT tx continues but could be continues at [place]. No GI distress, BM noted today. Labs reviewed. Skin breakdown noted to coccyx, increase risk d/t poor nutrition
--- NOTE | 2021-12-27 11:37 | PC.NURSE ---
late entry: on 12/24/21 blood transfusion there is a discrepancy noted on vital sign times. this was related to daylight savings time
[2021-12-27 13:02] LABS: Lymphocytes % 4 % (10-50); Neutrophils % 96 % (42-76); Total Cells Counted 100
[2021-12-27 13:06] LABS: Anisocytosis 1+; Macrocytosis 1+; Platelet Estimate Normal
--- NOTE | 2021-12-27 13:18 | HMH.ACPN2 ---
Internal Medicine - PN: Subj *Date: 12/27/21 *Time: 09:30 Interval history: pt laying in bed, answers questions hipolito, c/o chest pain Exam Vital signs and Labs for Last 24 Hours: Temp Pulse Resp BP Pulse Ox 99.1 F 75 18 113/48 L 92 L 12/27/21 11:51 12/27/21 11:51 12/27/21 11:51 12/27/21 11:51 12/27/21 11:51 Laboratory Results - last 24 hr 12/26/21 06:45: Total Counted 100, Neutrophils % (Manual) 90 H, Lymphocytes % (Manual) 6 L, Monocytes % (Manual) 4, Nucleated RBCs 2, Platelet Estimate Normal, Anisocytosis 1+, Macrocytosis 1+, Ovalocytes 1+, Acanthocytes (Spur) 1+ 12/27/21 06:25: WBC 18.4 H, RBC 2.91 L, Hgb 9.3 L, Hct 30.0 L, MCV 103.0 H, MCH 31.9 H, MCHC 31.0 L, RDW 15.9, Plt Count 290, MPV 10.5 H, Neut % (Auto) 90.3 H, Lymph % (Auto) 5.1 L, [place] % (Auto) 3.9, Eos % (Auto) 0.5, Baso % (Auto) 0.2, Neut # (Auto) 16.6 H, Lymph # (Auto) 1.0, [place] # (Auto) 0.7, Eos # (Auto) 0.1, Baso # (Auto) 0.0, Total Counted 100, Neutrophils % (Manual) 96 H, Lymphocytes % (Manual) 4 L, Platelet Estimate Normal, Anisocytosis 1+, Macrocytosis 1+ 12/27/21 06:25: Sodium 136, Potassium 3.5, Chloride 108 H, Carbon Dioxide 27, Anion Gap 4.5 L, BUN 35 H, Creatinine 0.40 L, Estimated Creat Clear 44, Estimated GFR 151, Est GFR ( Amer) 183 D, Glucose 97, Calcium 7.9 L 12/27/21 08:00: Vancomycin Trough 13.8 H 12/27/21 09:46: Troponin I 0.61 H I & O for Last 24 hours: Intake & Output 12/25/21 12/26/21 12/27/21 12/28/21 11:59 11:59 11:59 11:59 Intake Total 520 / 520 3370 / 3370 30 / 30 Output Total 1825 / 1825 1375 / 1375 400 / 400 Balance -1305 / -1305 1994 -370 / -370 Weight 142 lb 0.983 oz 150 lb 6 oz 152 lb 9.6 oz - Constitutional no acute distress, chronically ill appearing - *Routine HEENT Exam Head: Present: normocephalic Eye: Present: PERRL ENT: Present: mucous membranes moist - *Routine Neck Exam Present: supple. Absent: lymphadenopathy - *Routine Respiratory Exam Present: CTA bilaterally - *Routine Cardiovascular Exam Present: RRR, murmur - *Routine Abdominal Exam Present: soft, normoactive bowel sounds. Absent: tenderness - *Routine Extremities Exam Absent: cyanosis, clubbing, edema - *Routine Skin Exam Present: warm. Absent: rash - *Routine Neurological Exam Present: alert Assessment and Plan (1) Non-STEMI (non-ST elevated myocardial infarction) Status: Acute Category: Medical Code(s): I21.4 - Non-ST elevation (NSTEMI) myocardial infarction (2) Severe aortic stenosis Status: Acute Category: Medical Code(s): I35.0 - Nonrheumatic aortic (valve) stenosis (3) Elevated troponin Status: Acute Category: Medical Code(s): R77.8 - Other specified abnormalities of plasma proteins (4) YUDITH (acute kidney injury) Status: Acute Category: Medical Code(s): N17.9 - Acute kidney failure, unspecified (5) COVID-19 Status: Acute Category: Medical Code(s): U07.1 - COVID-19 (6) Knee fracture, right Status: Acute Category: Medical (7) Lumbar compression fracture Status: Acute Qualifiers: Encounter type: initial encounter Lumbar vertebra fracture level: L2 Qualified Code(s): S32.020A - Wedge compression fracture of second lumbar vertebra, initial encounter for closed fracture Category: Medical Code(s): S32.000A - Wedge compression fracture of unspecified lumbar vertebra, initial encounter for closed fracture (8) 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
--- NOTE | 2021-12-27 15:33 | CARE MANAGER ---
Patient has been accepted at [facility]. Patient has some tests ordered and cardiology consult today so will go in the AM. This plan was discussed with the patient daughter (Daniela) and she is in agreement pending the tests done today are ok. This information was forwarded to Ha Byrnes and . Pending no set backs patient should D/C in the am.
--- NOTE | 2021-12-27 16:25 | DIET.NUTRFU ---
Saw daughter today, provided menu for tomorrow. Daughter reports she was only able to consume couple bites of gravy this AM and her ensure. For lunch consumed yogurt and ensure. Does not tolerate the chicken very well its too dry. Family is considering placement or hospice, waiting to see all family to determine POC
[2021-12-28] VITALS: BP 128/64; PULSE 66; PULSE 75; RESP 18; TEMP 36.8
[2021-12-28 04:00] VITALS: PULSE 70
[2021-12-28 05:25] VITALS: BP 102/44; PULSE 104; RESP 16; TEMP 36.3; O2SAT 94
[2021-12-28 07:08] LABS: Alanine Aminotransferase 37 U/L (12-78); Albumin Level 1.9 g/dl (3.5-5.0); Alkaline Phosphatase 148 U/L (38-126); Aspartate Amino Transferase 35 U/L (14-36); Basophils % 0.2 % (0.1-2.0); Bilirubin,Direct 0.3 mg/dl (0.0-0.4); Bilirubin,Indirect 0.4 mg/dL (0.0-0.9); Bilirubin,Total 0.7 mg/dl (0.2-1.3); Bilirubin,Unconjugated 0.4 mg/dL (0.0-1.1); Blood Urea Nitrogen 33 mg/dl (7-17); Calcium 7.8 mg/dl (8.4-10.2); Carbon Dioxide 27 mmol/L (22.0-30.0); Chloride 106 mmol/L (98-107); Chol/HDL Ratio 5.3 (1-3.5); Cholesterol 96 mg/dl (140-200); Creatinine Clearance Estimated 44 mL/min (50-200); Eosinophils # 0.1 K/mm3 (0.0-0.4); Eosinophils % 0.4 % (0.1-12.0); Estimated Glomerular Filt Rate 117 ml/min (>60); GFR (African American) 142 ML/MIN (>60); Glucose 151 mg/dl (74-100); HDL Cholesterol 18 mg/dl (40-60); Hematocrit 28.5 % (37.0-47.0); Hemoglobin 8.6 g/dL (12.2-16.2); Lymphocytes # 0.8 K/mm3 (0.7-4.5); Lymphocytes % 4.6 % (10-50); Mean Corpuscular HGB Conc 30.3 g/dL (31.8-35.4); Mean Corpuscular Hemoglobin 31.4 pg (27.0-31.2); Mean Corpuscular Volume 103.7 fl (81-99); Monocytes # 0.7 K/mm3 (0.1-1.0); Monocytes % 4.2 % (1.7-9.3); Neutrophils # 15.3 K/mm3 (1.8-7.8); Neutrophils % 90.6 % (37.0-80.0); Platelet Count 257 K/mm3 (142-424); Red Blood Count 2.75 M/mm3 (4.20-5.40); Red Cell Distribution Width 15.7 % (11.5-17.5); Sodium 134 mmol/L (136-145); Total Protein,Serum 4.6 g/dl (6.3-8.2); Triglycerides 78 mg/dl (30-150); VLDL Cholesterol 16 mg/dL (0-40); White Blood Count 16.9 K/mm3 (4.8-10.8)
[2021-12-28 07:11] LABS: MANUAL DIFFERENTIAL MANUAL DIFFERENTIAL (MANUAL DIFF)
[2021-12-28 07:20] LABS: Direct LDL Cholesterol 59.09 mg/dL (100-129)
[2021-12-28 07:34] LABS: Anion Gap 4.1 mEq/L (5-15); Potassium 3.1 mmoL/L (3.5-5.1)
[2021-12-28 08:00] VITALS: BP 96/54; PULSE 100; PULSE 90; RESP 16; TEMP 37.1; O2SAT 96
[2021-12-28 09:10] LABS: Hypochromasia 1+; Lymphocytes % 6 % (10-50); Macrocytosis 1+; Monocytes % 1 % (2-9); Neutrophils % 93 % (42-76); Platelet Estimate Normal; Total Cells Counted 100
--- NOTE | 2021-12-28 09:18 | PC.NURSE ---
Spoke with Kay from [facility] office. Pt had slightly lower BP. I asked if okayto still give metoprolol she stated that it was okay to give.
--- NOTE | 2021-12-28 10:26 | HMH.DCSUM ---
General - General Admission date:: 12/16/21 Discharge date: 12/28/21 HPI HPI: pt was seen in the er with hx of progressive weakness and had falls with back and knee pain-ems called out for weakness. pt's daughter reports pt fell last week and has gotten progessive weak since fall. pt c/o bilateral knee pain. pt is alert to self and place brought by family with weakness - fell last week with knee and back pain - last ambulated 2 days ago - dec po intake but no chest pain or vomiting pt was found to have sepsis with shock and was admitted to [facility] for treatment and eval Hospital Course Hospital Course: Pt admitted for progressive weakness and recurrent falls. Initially septic and in shock. bc was positive for staph aureus, was placed on vancomycin had persistent leukocytosis but trended downward noted to have a non-displaced medial epicondyle fracture right, treated conservatively was seen in consultation w/ortho underwent carotid duplex IMPRESSION: Less than 50% right carotid stenosis. 70-99% left carotid stenosis. Bilateral patent vertebral arteries with antegrade flow. If indicated, CTA or MRA could further evaluate. Patient at one point had developed chest pain w/elev trop declined LHC BC grew out staph vancomycin given iv Pt received 2 units PRBC's Progressive weakness with falls preceded ER visit. Placement in NH merited for this reason Objective Vital signs: Temp Pulse Resp BP Pulse Ox 98.8 F 100 H 16 96/54 L 96 12/28/21 08:00 12/28/21 08:00 12/28/21 08:00 12/28/21 08:00 12/28/21 08:00 chronically ill appearing - *Routine HEENT Exam Head: Present: normocephalic Eye: Present: EOMI, PERRL ENT: Present: mucous membranes moist - *Routine Neck Exam Present: supple - *Routine Respiratory Exam Present: CTA bilaterally - *Routine Cardiovascular Exam Present: RRR - *Routine Abdominal Exam Present: soft, normoactive bowel sounds. Absent: tenderness - *Routine Extremities Exam Present: tenderness. Absent: calf tenderness - *Routine Skin Exam Present: warm. Absent: rash Results Labs on day of discharge: Labs from last 24 hours 12/28/21 12/28/21 12/27/21 06:30 06:30 09:46 WBC 16.9 H RBC 2.75 L Hgb 8.6 L Hct 28.5 L MCV 103.7 H MCH 31.4 H MCHC 30.3 L RDW 15.7 Plt Count 257 MPV 9.0 Neut % (Auto) 90.6 H Lymph % (Auto) 4.6 L [place] % (Auto) 4.2 Eos % (Auto) 0.4 Baso % (Auto) 0.2 Neut # (Auto) 15.3 H Lymph # (Auto) 0.8 [place] # (Auto) 0.7 Eos # (Auto) 0.1 Baso # (Auto) 0.0 Total Counted 100 Neutrophils % (Manual) 93 H Lymphocytes % (Manual) 6 L Monocytes % (Manual) 1 L Platelet Estimate Normal Hypochromasia 1+ Anisocytosis Macrocytosis 1+ Sodium 134 L Potassium 3.1 L Chloride 106 Carbon Dioxide 27 Anion Gap 4.1 L BUN 33 H Creatinine 0.50 L D Estimated Creat Clear 44 Estimated GFR 117 Est GFR ( Amer) 142 D Glucose 151 H Calcium 7.8 L Total Bilirubin 0.7 Direct Bilirubin 0.3 Conjugated Bilirubin 0.0 Indirect Bilirubin 0.4 Unconjugated Bilirubin 0.4 AST 35 ALT 37 Alkaline Phosphatase 148 H Troponin I 0.61 H Total Protein 4.6 L D Albumin 1.9 L Triglycerides 78 Cholesterol 96 L LDL Cholesterol Direct 59.09 L VLDL Cholesterol 16 HDL Cholesterol 18 L Cholesterol/HDL Ratio 5.3 H 12/27/21 06:25 WBC RBC Hgb Hct MCV MCH MCHC RDW Plt Count MPV Neut % (Auto) Lymph % (Auto) [place] % (Auto) Eos % (Auto) Baso % (Auto) Neut # (Auto) Lymph # (Auto) [place] # (Auto) Eos # (Auto) Baso # (Auto) Total Counted 100 Neutrophils % (Manual) 96 H Lymphocytes % (Manual) 4 L Monocytes % (Manual) Platelet Estimate Normal Hypochromasia Anisocytosis 1+ Macrocytosis 1+ Sodium Potassium Chloride Carbon Dioxide Anion G
--- NOTE | 2021-12-28 10:26 | HMH.PNCARD ---
Subjective Date: 12/28/21 Time: 09:00 Principal diagnosis: Medial condyle fracture, right knee Interval history: This is an 86-year-old white female who was admitted to the hospital with sepsis. She did have an elevated troponin consistent with a non-ST elevation myocardial infarction. She had sudden onset of chest pain yesterday and cardiology was consulted. Her troponin elevated even more at 0.61. She also had an abnormal echocardiogram which showed severe aortic stenosis. The patient states that she was having pressure across her entire chest that did not radiate. It was associated with diaphoresis and nausea. She denied having any shortness of breath. Left cardiac catheterization was offered to the patient yesterday and she declined. She opted for medical management. This morning she denies any chest pain or pressure. She denies any shortness of breath or edema. She denies any fever, chills, nausea, vomiting, diarrhea, PND or orthopnea. The patient is lying flat when I walk in the room without any symptoms. Exam Vital signs and Labs for Last 24 Hours: Temp Pulse Resp BP Pulse Ox 98.8 F 100 H 16 96/54 L 96 12/28/21 08:00 12/28/21 08:00 12/28/21 08:00 12/28/21 08:00 12/28/21 08:00 Laboratory Results - last 24 hr 12/27/21 06:25: Total Counted 100, Neutrophils % (Manual) 96 H, Lymphocytes % (Manual) 4 L, Platelet Estimate Normal, Anisocytosis 1+, Macrocytosis 1+ 12/27/21 09:46: Troponin I 0.61 H 12/28/21 06:30: Sodium 134 L, Potassium 3.1 L, Chloride 106, Carbon Dioxide 27, Anion Gap 4.1 L, BUN 33 H, Creatinine 0.50 L D, Estimated Creat Clear 44, Estimated GFR 117, Est GFR ( Amer) 142 D, Glucose 151 H, Calcium 7.8 L, Total Bilirubin 0.7, Direct Bilirubin 0.3, Conjugated Bilirubin 0.0, Indirect Bilirubin 0.4, Unconjugated Bilirubin 0.4, AST 35, ALT 37, Alkaline Phosphatase 148 H, Total Protein 4.6 L D, Albumin 1.9 L, Triglycerides 78, Cholesterol 96 L, LDL Cholesterol Direct 59.09 L, VLDL Cholesterol 16, HDL Cholesterol 18 L, Cholesterol/HDL Ratio 5.3 H 12/28/21 06:30: WBC 16.9 H, RBC 2.75 L, Hgb 8.6 L, Hct 28.5 L, MCV 103.7 H, MCH 31.4 H, MCHC 30.3 L, RDW 15.7, Plt Count 257, MPV 9.0, Neut % (Auto) 90.6 H, Lymph % (Auto) 4.6 L, [place] % (Auto) 4.2, Eos % (Auto) 0.4, Baso % (Auto) 0.2, Neut # (Auto) 15.3 H, Lymph # (Auto) 0.8, [place] # (Auto) 0.7, Eos # (Auto) 0.1, Baso # (Auto) 0.0, Total Counted 100, Neutrophils % (Manual) 93 H, Lymphocytes % (Manual) 6 L, Monocytes % (Manual) 1 L, Platelet Estimate Normal, Hypochromasia 1+, Macrocytosis 1+ I & O for Last 24 hours: Intake & Output 12/25/21 12/26/21 12/27/21 12/28/21 23:59 23:59 23:59 23:59 Intake Total 3610 / 3610 120 / 120 300 / 300 Output Total 1575 / 2100 525 / 925 2300 / 2300 Balance 2035 / 1510 -405 / -805 -2000 / -2000 Weight 142 lb 0.983 oz 150 lb 6 oz 152 lb 9.6 oz Narrative: CNI shows: Less than 50% right carotid stenosis. 70-99% left carotid stenosis. Bilateral patent vertebral arteries with antegrade flow. If indicated, CTA or MRA could further evaluate. - Constitutional no acute distress, average body habitus - *Routine HEENT Exam Head: Present: normocephalic, atraumatic Eye: Present: EOMI, PERRL ENT: Present: mucous membranes moist - *Routine Neck Exam Present: supple, full ROM, carotid bruit, normal carotid upstroke. Absent: JVD, lymphadenopathy - *Routine Respiratory Exam Present: CTA bilaterally - *Routine Cardiovascular Exam Present: RRR, Normal S1, Normal S2, murmur - *Routine Abdominal Exam Present: soft, normoactive bowel sounds. Absent: tenderness, distended - *Routine Extremities Exam Present: edema (Trace lower extremity edema), full ROM, pulses intact, normal capillary refill. Absent: cyanosis, clubbing - *Routine Skin Exam Present: intact, warm. Absent: erythema, rash - *Routine Neurological Exam Present: alert, oriented X3, CN II-XII intact. Absent: sensory deficit, motor deficit Progress Note: A&P
[2021-12-28 12:00] VITALS: BP 95/43; PULSE 100; PULSE 103; RESP 18; TEMP 36.7; O2SAT 100
--- NOTE | 2021-12-28 13:19 | PC.NURSE ---
Spoke with Mikhail HOBSON and stated that she will go home with PICC line and FC.
--- NOTE | 2021-12-28 13:24 | PC.NURSE ---
Tried to finalize discharge, but was unable due to medications not being finished. Called MD office to ask to have that finished.
--- NOTE | 2021-12-28 13:54 | PC.NURSE ---
Checked to see about discharge and the medication is still not finished. Will continue to monitor pt and see when D/C order is done.
--- NOTE | 2021-12-28 14:06 | PC.NURSE ---
Spoke with Funmi RN from facility gave report.
--- NOTE | 2021-12-28 14:43 | PC.NURSE ---
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
--- NOTE | 2021-12-29 14:30 | CARE MANAGER ---
Spoke with Gaby at [facility] and she states that patient is doing well today. She got her medications and has no needs at this time.
== END 2021-12-28 15:20 | DRG 871 ==
LOC: ER 03:02 → 2ND 06:41
PROVIDERS: Nurse Practitioner Family; Admitting Provider Emergency Medicine; Emergency Provider Emergency Medicine; PCP Internal Medicine; Visit Provider Emergency Medicine
DX: A41.02 Sepsis due to Methicillin resistant Staphylococcus aureus (principal); R65.21 Severe sepsis with septic shock; U07.1 COVID-19; E43 Unspecified severe protein-calorie malnutrition; I21.4 Non-ST elevation (NSTEMI) myocardial infarction; S42.401A Unspecified fracture of lower end of right humerus, initial encounter for closed fracture; S32.029A Unspecified fracture of second lumbar vertebra, initial encounter for closed fracture; N39.0 Urinary tract infection, site not specified; N17.9 Acute kidney failure, unspecified; M97.11XA Periprosthetic fracture around internal prosthetic right knee joint, initial encounter; I35.0 Nonrheumatic aortic (valve) stenosis; Z68.28 Body mass index [BMI] 28.0-28.9, adult; Z85.3 Personal history of malignant neoplasm of breast; W19.XXXA Unspecified fall, initial encounter; M19.90 Unspecified osteoarthritis, unspecified site; Z86.73 Personal history of transient ischemic attack (TIA), and cerebral infarction without residual deficits; Z96.651 Presence of right artificial knee joint; D64.9 Anemia, unspecified
CPT/HCPCS: 36569; 36410; 36415; 51702; 70450; 71045; 71275; 72125; 72128; 72131; 72170; 73110; 73562; 74176; 80048; 80053; 80061; 80076; 80202; 81001; 82550; 82553; 83605; 83735; 84145; 84484; 85007; 85025; 85651; 86140; 86850; 87040; 87077; 87086; 87186; 93005; 93306; 93880; 93970; 94761; 96365; 96375; 97110; 97140; 97163; 97166; 97530; 99285; C1751; C9803; J0456; J1335; J3370; P9016; Q9967; U0003; U0005

== ENCOUNTER 2022-01-02 14:12 | Outpatient (CLI) | payer MEDICARE, SELFPAY ==
[2022-01-02 14:34] VITALS: BMI 26.4
--- NOTE | 2022-01-02 15:04 | XR_ITS ---
FINAL REPORT CLINICAL HISTORY: PICC line placement COMPARISON: December 24, 2021 FINDINGS: There is a left PICC line tip terminates in the SVC. The heart size is normal. The mediastinum is normal. There is no focal infiltrate or edema. There is scarring in the lung bases. There are no pleural effusions. There is no pneumothorax. There is 40 degrees of thoracic scoliosis convex to the right. IMPRESSION: No acute cardiopulmonary process. Left PICC tip in the SVC. Reviewed, Interpreted and Dictated by Ganesh Barahona MD Transcribed by Ying Cotter Authenticated by Ganesh Barahona MD on 01/02/2022 04:00:57 PM [facility][1]
--- NOTE | 2022-01-02 17:35 | PC.NURSE ---
01/02/22 1630 pt resting comfortably in bed, pt's daughter at bs. Pt's daughter requested ensure drink for pt and drink ordered and given. Pt able to drink entire drink and gerald well. Pt stable-cxr report confirmed proper picc placement and awaiting transfer back to pr facility.
== END 2022-01-02 17:20 | disposition home or self-care (01) ==
PROVIDERS: PCP Family Medicine; Visit Provider Family Medicine
DX: Z45.2 Encounter for adjustment and management of vascular access device (principal)
CPT/HCPCS: 36569; 71045; C1751

== ENCOUNTER 2022-01-06 11:32 | Inpatient (IN) | payer MEDICARE, SELFPAY ==
[2022-01-06] VITALS (16 sets, daily range): BP systolic 60–109; BP diastolic 21–82; PULSE 40–88; RESP 14–24; TEMP 36.4–37.1; O2SAT 80–100; BMI 23.0; BMI 30.8
--- NOTE | 2022-01-06 11:36 | ECG_ITS ---
APPROVED REPORT Exam: Resting ECG HR:90 bpm ECG Measurements Heart Rate 90 AXES QRSd 108 QRS -23 QT 436 T 63 QTc 483 Conclusion ATRIAL FIBRILLATION WITH ABERRANT CONDUCTION OR VENTRICULAR PREMATURE COMPLEXES BORDERLINE LEFT AXIS DEVIATION [QRS AXIS < -20] INCOMPLETE RIGHT BUNDLE BRANCH BLOCK [90+ ms QRS DURATION, TERMINAL R IN V1/V2, 40+ ms S IN I/aVL/V4/V5/V6] VOLTAGE CRITERIA FOR LVH [MEETS CRITERIA IN ONE OF: R(aVL), S(V1), R(V5), R(V5/V6)+S(V1)] ST DEPRESSION, CONSIDER SUBENDOCARDIAL INJURY [0.1+ mV ST DEPRESSION] PROLONGED QT INTERVAL ABNORMAL ECG UNCONFIRMED REPORT Electronically signed by : Omid Monique MD 01/07/2022 07:49:43
--- NOTE | 2022-01-06 11:36 | PC.NURSE ---
EKG done and given to Dr. Arreguin
--- NOTE | 2022-01-06 11:40 | PC.NURSE ---
pt was brought in by EMS, helped over to bed. nurses are bedside. Manual Blood pressure was taken. EKG was done and given to MD. Assisted other tech in rolling patient to get a rectal temperature.
--- NOTE | 2022-01-06 11:42 | PC.NURSE ---
Rn and nrsing student at bedside to get labs and IV
--- NOTE | 2022-01-06 11:50 | XR_ITS ---
PROCEDURE INFORMATION: Exam: XR Chest Exam date and time: 01/06/2022 12:00 PM Age: 86 years old Clinical indication: Shortness of breath; Patient HX: AMS TECHNIQUE: Imaging protocol: XR of the chest. Views: 1 view. COMPARISON: CR XR CHEST PORTABLE PICC PLAC 01/02/2022 3:14 PM FINDINGS: Tubes, catheters and devices: PICC line again demonstrated. Tip at the level of the proximal superior vena cava. Unchanged. Lungs: Persistent bibasilar parenchymal scarring. Findings suggesting the presence of a left lower lobe region of consolidation and/or atelectasis. Findings new. Right lung unremarkable. Pleural spaces: Unremarkable. No pleural effusion. No pneumothorax. Heart/Mediastinum: Unremarkable. No cardiomegaly. Diaphragm: Left hemidiaphragm obscured. Bones/joints: Unremarkable. IMPRESSION: Findings suggesting the presence of a left lower lobe region of consolidation and/or atelectasis. Findings new.
--- NOTE | 2022-01-06 12:13 | PC.NURSE ---
PT LETHARGIC FAMILY AT BEDSIDE. IV #22 LT HAND.
--- NOTE | 2022-01-06 12:27 | PC.NURSE ---
lab is bedside at this time. Family is bedside as well.
--- NOTE | 2022-01-06 12:29 | HMH.EDGENADL ---
ED Disposition Clinical Impression: Severe sepsis with acute organ dysfunction, Septic shock, Elevated troponin, Liver cell injury, YUDITH (acute kidney injury) Disposition: Home, Self-Care Condition on Discharge: Critical Instructions: DI for Altered Mental Status Referrals: Provider,Referral, [Referring] - - Critical Care Critical Care Time: Yes Attestation: On 01/06/22, the high probability of a clinically significant, sudden or life threatening deterioration of the following system(s) required my full and direct attention, intervention and personal management. The time I documented below is in addition to time spent performing reported procedures but includes the following listed in this critical care notation. Total Critical Care Time: 45 Vital system(s) involved:: Circulatory Failure, Central Nervous System, Metabolic Failure, Shock (Septic) My critical care processes included: Assessment & monitoring of V/S, Initial and Re-exams, Data Review/Interpretation, Coordinating Care, Medication Orders and management, Documentation Medical Decision Making - Medical Records Medical records reviewed: Yes: I reviewed the patient's medical records. - Jeremiah Inquiry Pt receiving controlled substance: Yes Jeremiah was queried for this patient: Yes Risks and benefits of using a controlled substance: were not discussed with pt by me Vital Signs: 01/06/22 11:29 01/06/22 12:10 01/06/22 12:15 Temperature 98.8 F Temperature Source Rectal Pulse Rate 73 Pulse Rate [Radial] 88 Respiratory Rate 20 24 Blood Pressure 76/40 L 74/40 L Blood Pressure [Right Arm] 102/82 L Blood Pressure Mean 40 Blood Pressure Mean [Right Arm] 88 Blood Pressure Source Manual Cuff/ Auscultation Blood Pressure Source [Right Arm] Manual Cuff/ Auscultation Blood Pressure Position Supine 02 Sat by Pulse Oximetry 98 98 Oxygen Delivery Method Nasal Cannula Nasal Cannula Oxygen Flow Rate (LPM) 3 3 01/06/22 12:43 01/06/22 12:50 01/06/22 13:01 Temperature Temperature Source Pulse Rate 67 72 84 Pulse Rate [Radial] Respiratory Rate 23 23 24 Blood Pressure 73/43 L 79/43 L 96/40 L Blood Pressure [Right Arm] Blood Pressure Mean 54 50 45 Blood Pressure Mean [Right Arm] Blood Pressure Source Blood Pressure Source [Right Arm] Blood Pressure Position 02 Sat by Pulse Oximetry 100 98 98 Oxygen Delivery Method Nasal Cannula Nasal Cannula Nasal Cannula Oxygen Flow Rate (LPM) 3 3 3 01/06/22 13:11 01/06/22 13:20 01/06/22 13:40 Temperature Temperature Source Pulse Rate 80 81 88 Pulse Rate [Radial] Respiratory Rate 19 23 17 Blood Pressure 96/40 L 109/43 L 94/56 L Blood Pressure [Right Arm] Blood Pressure Mean 47 65 68 Blood Pressure Mean [Right Arm] Blood Pressure Source Blood Pressure Source [Right Arm] Blood Pressure Position 02 Sat by Pulse Oximetry 100 99 100 Oxygen Delivery Method Nasal Cannula Nasal Cannula Nasal Cannula Oxygen Flow Rate (LPM) 3 3 3 - Lab Data Lab Results 01/06/22 12:33: WBC 23.2 H*, RBC 2.96 L, Hgb 9.1 L, Hct 30.8 L, MCV 103.9 H, MCH 30.8, MCHC 29.7 L, RDW 15.6, Plt Count 327, MPV 10.3, Neut % (Auto) 91.1 H, Lymph % (Auto) 5.7 L, [place] % (Auto) 2.7, Eos % (Auto) 0.1, Baso % (Auto) 0.4, Neut # (Auto) 21.1 H, Lymph # (Auto) 1.3, [place] # (Auto) 0.6, Eos # (Auto) 0.0, Baso # (Auto) 0.1, Total Counted 100, Neutrophils % (Manual) 92 H, Lymphocytes % (Manual) 6 L, Monocytes % (Manual) 2, Platelet Estimate Normal, Hypochromasia 2+ 01/06/22 12:33: Sodium 135 L, Potassium 3.0 L, Chloride 98, Carbon Dioxide 29, Anion Gap 11.0, BUN 61 H, Creatinine 1.90 H, Estimated Creat Clear 20, Estimated GFR 25 L, Est GFR ( Amer) 30 L, Glucose 132 H, Calcium 8.0 L, Total Bilirubin 0.6, AST 304 H*, ALT 144 H, Alkaline Phosphatase 137 H, Troponin I 16.80 H, Total Protein 5.9 L D, Albumin 2.6 L, Globulin 3.3 H, Albumin/Globulin Ratio 0.8 L 01/06/22 12:33: SARS-CoV-2 (PCR) Not detected, I
--- NOTE | 2022-01-06 12:35 | PC.NURSE ---
COVID swab obtained and sent to the lab by [facility] tech.
[2022-01-06 12:42] LABS: Coronavirus 19, PCR Not Detected (NotDetected); Influenza A, PCR Not Detected (NotDetected); Influenza B, PCR Not Detected (NotDetected)
--- NOTE | 2022-01-06 12:43 | PC.NURSE ---
alert Rn BP is still low
[2022-01-06 12:46] LABS: Basophils # 0.1 K/mm3 (0-0.2); Basophils % 0.4 % (0.1-2.0); Eosinophils % 0.1 % (0.1-12.0); Hematocrit 30.8 % (37.0-47.0); Hemoglobin 9.1 g/dL (12.2-16.2); Lymphocytes # 1.3 K/mm3 (0.7-4.5); Lymphocytes % 5.7 % (10-50); Mean Corpuscular HGB Conc 29.7 g/dL (31.8-35.4); Mean Corpuscular Hemoglobin 30.8 pg (27.0-31.2); Mean Corpuscular Volume 103.9 fl (81-99); Mean Platelet Volume 10.3 fl (7.4-10.4); Monocytes # 0.6 K/mm3 (0.1-1.0); Monocytes % 2.7 % (1.7-9.3); Neutrophils # 21.1 K/mm3 (1.8-7.8); Neutrophils % 91.1 % (37.0-80.0); Platelet Count 327 K/mm3 (142-424); Red Blood Count 2.96 M/mm3 (4.20-5.40); Red Cell Distribution Width 15.6 % (11.5-17.5); White Blood Count 23.2 K/mm3 (4.8-10.8)
--- NOTE | 2022-01-06 12:47 | PC.NURSE ---
PT DIFFICULT IV STICK HAVING DIFFICULTLY DRAWING BLOOD
[2022-01-06 12:53] LABS: Chloride 98 mmol/L (98-107)
[2022-01-06 12:54] LABS: Sodium 135 mmol/L (136-145)
[2022-01-06 12:55] LABS: MANUAL DIFFERENTIAL MANUAL DIFFERENTIAL (MANUAL DIFF)
[2022-01-06 12:56] LABS: Alanine Aminotransferase 144 U/L (12-78); Alkaline Phosphatase 137 U/L (38-126); Aspartate Amino Transferase 304 U/L (14-36); Bilirubin,Total 0.6 mg/dl (0.2-1.3); Blood Urea Nitrogen 61 mg/dl (7-17); Creatinine Clearance Estimated 20 mL/min (50-200); Estimated Glomerular Filt Rate 25 ml/min (>60); GFR (African American) 30 ML/MIN (>60)
[2022-01-06 12:57] LABS: Albumin Level 2.6 g/dl (3.5-5.0); Albumin/Globulin Ratio 0.8 (1.1-1.8); Carbon Dioxide 29 mmol/L (22.0-30.0); Globulin 3.3 g/dL (1.3-3.2); Glucose 132 mg/dl (74-100); Total Protein,Serum 5.9 g/dl (6.3-8.2)
--- NOTE | 2022-01-06 13:19 | PC.NURSE ---
Rebecca ZELAYA took critical on pt
--- NOTE | 2022-01-06 13:26 | PC.NURSE ---
Dr. Arreguin is in with patient talking with family about lab results.
--- NOTE | 2022-01-06 13:30 | PC.NURSE ---
DR BAUER AT BEDSIDE INFORMING FAMILY OF PT'S CONDITION.
--- NOTE | 2022-01-06 13:31 | PC.NURSE ---
calling front office representative to get whoever is health information technologist for Dr. Andrews. Dr. Witt is health information technologist. Awaiting call back at this time.
[2022-01-06 13:37] LABS: Lactic Acid 3.4 mmol/L (0.7-2.1)
[2022-01-06 13:40] LABS: Hypochromasia 2+; Lymphocytes % 6 % (10-50); Monocytes % 2 % (2-9); Neutrophils % 92 % (42-76); Platelet Estimate Normal; Total Cells Counted 100
--- NOTE | 2022-01-06 13:44 | PC.NURSE ---
Family is bedside with patient. Still awaiting call back from Dr. Witt. ER doc in room with patient again at this time. patient resting in bed. nothing needed by family.
--- NOTE | 2022-01-06 13:45 | PC.NURSE ---
Dr. Witt returned call to ED at this time, speaking with Dr. Arreugin about possible admission for patient
--- NOTE | 2022-01-06 13:49 | HMH.PHACONS ---
- Pharmacy Consult Date: 01/06/22 Time: 13:49 Referring provider: DR. BAUER Reason for Consult:: VANCOMYCIN DOSING Allergies and ADEs:: Allergies Allergy/AdvReac Type Severity Reaction Status Date / Time No Known Allergies Allergy Unverified 10/01/17 14:27 Home Medications:: Home Medications Medication Instructions Recorded Confirmed Type LORazepam [Lorazepam 2mg Tablet] 1 mg PO BID 10/21/18 01/06/22 History Dexlansoprazole [Dexilant] 60 mg PO DAILY 12/16/21 01/06/22 History Escitalopram Oxalate [Lexapro] 10 mg PO DAILY 12/16/21 01/06/22 History Furosemide [Furosemide 40MG tAB*] 40 mg PO DAILY 12/16/21 01/06/22 History Oxybutynin Chloride [Oxybutynin 5 mg PO HS 12/16/21 01/06/22 History Chloride ER] Trazodone HCl 50 mg PO HS 12/16/21 01/06/22 History ondansetron HCL [Ondansetron 4mg 4 mg PO Q4HP PRN 12/16/21 01/06/22 History tab*] Cefepime HCl [Maxipime 2gm Vial] 2 gm IV 1100,2300 01/06/22 01/06/22 History Height: 1.6 m Weight: 58.967 kg Laboratory Results:: Laboratory Results - last 24 hr 01/06/22 12:33: WBC 23.2 H*, RBC 2.96 L, Hgb 9.1 L, Hct 30.8 L, MCV 103.9 H, MCH 30.8, MCHC 29.7 L, RDW 15.6, Plt Count 327, MPV 10.3, Neut % (Auto) 91.1 H, Lymph % (Auto) 5.7 L, [place] % (Auto) 2.7, Eos % (Auto) 0.1, Baso % (Auto) 0.4, Neut # (Auto) 21.1 H, Lymph # (Auto) 1.3, [place] # (Auto) 0.6, Eos # (Auto) 0.0, Baso # (Auto) 0.1, Total Counted 100, Neutrophils % (Manual) 92 H, Lymphocytes % (Manual) 6 L, Monocytes % (Manual) 2, Platelet Estimate Normal, Hypochromasia 2+ 01/06/22 12:33: Sodium 135 L, Potassium 3.0 L, Chloride 98, Carbon Dioxide 29, Anion Gap 11.0, BUN 61 H, Creatinine 1.90 H, Estimated Creat Clear 20, Estimated GFR 25 L, Est GFR ( Amer) 30 L, Glucose 132 H, Calcium 8.0 L, Total Bilirubin 0.6, AST 304 H*, ALT 144 H, Alkaline Phosphatase 137 H, Troponin I 16.80 H, Total Protein 5.9 L D, Albumin 2.6 L, Globulin 3.3 H, Albumin/Globulin Ratio 0.8 L 01/06/22 12:33: SARS-CoV-2 (PCR) Not detected, Influenza A Untype (PCR) Not detected, Influenza Type B (PCR) Not detected 01/06/22 13:05: Lactate 3.4 H Medical History: Reports:: Cancer (breast cancer), Hypertension Denies:: Diabetes Mellitus Type 1, Diabetes Mellitus Type 2 Assessment and Plan - Assessment and plan all Dx Assessment and Plan for all problems:: Pharmacokinetic dosing service Objective: Patient: Floor: Age: 86 yo Serum creatinine: 1.90 mg/dL Height: 63.0 Inches Weight (kg): 59 Assessment: IBW (kg): 52.40 Dosing wt(kg): 59 Estimated Creatinine clearance (ml/min): 17.6 CRCL method: Cockcroft and Gault using ibw(default). Drug selected: Vancomycin Loading dose (mg): Vd (liters): 47.2 (factor used: 0.8 L/kg) Alexander (hr-1): 0.019 Half life (hrs): 36.48 CLvanco=?? 0.897 L/hr Recommended dose: 1000 mg Interval: 48 hrs Infusion time (hrs): 2.0 Predicted peak (mcg/mL): 34.7 Predicted trough (mcg/mL): 14.48 Total body weight is being used for vancomycin dosing. Recommendations: Give Vancomycin 1000 mg q 48 hrs with an expected Cpeak of 34.7 mcg/ml and an expected Ctrough of 14.48 mcg/ml AUC 0-24 /ARIEL Data: ARIEL 0.5 mcg/mL:?? AUC/ARIEL:? 1114.8 ARIEL 1.0 mcg/mL:?? AUC/ARIEL:? 557.4 --------- ARIEL 1.5 mcg/mL:?? AUC/ARIEL:? 371.6 ARIEL 2.0 mcg/mL:?? AUC/ARIEL:? 278.7 Renal dosing of other antibiotics (review renal dosing of other medications and list guidelines here): Thank you for the consult, will continue to follow. -KELLY CALDWELL, ELLIOTD
--- NOTE | 2022-01-06 13:55 | PC.NURSE ---
Suzanna Dangelo speaking with house at this time about inpatient bed admission.
--- NOTE | 2022-01-06 14:27 | PC.NURSE ---
REPORT CALLED TO FLOOR
--- NOTE | 2022-01-06 14:32 | PC.NURSE ---
[facility] staff down here to transport patient up to inpatient room. Family still bedside at this time
--- NOTE | 2022-01-06 14:37 | PC.NURSE ---
pt left the unit with med-surg staff via stretcher. Family was accompanying patient.
--- NOTE | 2022-01-06 14:37 | PC.NURSE ---
Pt arrived to the floor at this time
--- NOTE | 2022-01-06 14:58 | HMH.PHAINT ---
MEDICATION RECONCILIATION COMPLETED ON PATIENT USING MAR FROM [facility]IDENT[facility]. -KELLY CALDWELL, ELLIOTD
[2022-01-06 15:51] LABS: C-Reactive Protein 138.9 mg/L (0-4)
[2022-01-06 15:59] LABS: Erythrocyte Sedimentation Rate 61 mm/hr (0-30)
[2022-01-06 17:26] LABS: Reflex Lactic Add Lactic Reflex
--- NOTE | 2022-01-06 18:16 | P.CONPHA_ITS ---
[facility] Pharmacy VTE Monitoring - Patient Demographics Admission date: 01/06/22 Report Date: 01/06/22 Time: 18:16 Allergies/Adverse Reactions: Patient Allergies No Known Allergies Allergy (Unverified 10/01/17 14:27) Height: 1.45 m Weight: 64.637 kg Patient Problems: Current Active Problems YUDITH (acute kidney injury) (Acute) Severe sepsis with acute organ dysfunction (Acute) Septic shock (Acute) Elevated troponin (Acute) Liver cell injury (Acute) - VTE Risk Labs: VTE Related Lab Results Hgb 9.1 g/dL (12.2-16.2) L 01/06/22 12:33 Hct 30.8 % (37.0-47.0) L 01/06/22 12:33 Plt Count 327 K/mm3 (142-424) 01/06/22 12:33 BUN 61 mg/dl (7-17) H 01/06/22 12:33 Creatinine 1.90 mg/dl (0.52-1.04) H 01/06/22 12:33 Estimated Creat Clear 20 mL/min (50-200) 01/06/22 12:33 VTE Score: 3 VTE Risk Level: Low Risk - Prophylaxis VTE Prophylaxis Ordered?: Yes Types of VTE Prophylaxis: TEDS Knee High Location of Applied Device: Bilateral Lower Extremeties
--- NOTE | 2022-01-06 18:16 | PC.NURSE ---
family does not want labs drawn @ this time per Lab.
--- NOTE | 2022-01-06 18:32 | PC.NURSE ---
pt is resting comfortably in bed with family @ bedside. They did not want labs done @ this time. Pt is hypotensive and minimally responsive. turned and repositioned. Drew in place with little to no urine output. Family wants to keep pt comfortable @ this time
[2022-01-07] VITALS: BP 96/41; PULSE 45; RESP 14; TEMP 36.7; O2SAT 97
[2022-01-07 04:00] VITALS: BP 77/46; PULSE 71; RESP 16; TEMP 36.7; O2SAT 98
--- NOTE | 2022-01-07 04:57 | PC.NURSE ---
pt resting comfortably at this time with family at bedside, bradypnea noted with deep breaths with subcostal retractions noted, pt has remained hypotensive throughout shift, skin color is ashen, edema noted to BLE, decreased urinary output with only 20ml noted of dark concentrated urine, heart rate irregular and bradycardia noted. pt was medicated with morphine x 1 dose, pt will grimace to painful stimuli otherwise nonresponsive, call light within reach will continue to monitor at this time
[2022-01-07 05:00] VITALS: BMI 66.9
[2022-01-07 08:00] VITALS: BP 66/29; PULSE 56; RESP 16; TEMP 36.9; O2SAT 93
[2022-01-07 08:37] LABS: Basophils # 0.1 K/mm3 (0-0.2); Basophils % 0.3 % (0.1-2.0); Eosinophils % 0.1 % (0.1-12.0); Hematocrit 28.8 % (37.0-47.0); Hemoglobin 8.9 g/dL (12.2-16.2); Lymphocytes # 1.6 K/mm3 (0.7-4.5); Lymphocytes % 4.8 % (10-50); Mean Corpuscular HGB Conc 30.8 g/dL (31.8-35.4); Mean Corpuscular Hemoglobin 31.9 pg (27.0-31.2); Mean Corpuscular Volume 103.5 fl (81-99); Mean Platelet Volume 10.6 fl (7.4-10.4); Monocytes # 0.8 K/mm3 (0.1-1.0); Monocytes % 2.6 % (1.7-9.3); Neutrophils # 29.8 K/mm3 (1.8-7.8); Neutrophils % 92.1 % (37.0-80.0); Platelet Count 273 K/mm3 (142-424); Red Blood Count 2.78 M/mm3 (4.20-5.40); Red Cell Distribution Width 15.5 % (11.5-17.5); White Blood Count 32.3 K/mm3 (4.8-10.8)
[2022-01-07 08:54] LABS: MANUAL DIFFERENTIAL MANUAL DIFFERENTIAL (MANUAL DIFF)
[2022-01-07 09:21] LABS: Alanine Aminotransferase 621 U/L (12-78); Albumin Level 2.4 g/dl (3.5-5.0); Albumin/Globulin Ratio 0.8 (1.1-1.8); Alkaline Phosphatase 116 U/L (38-126); Anion Gap 16.4 mEq/L (5-15); Bilirubin,Total 0.7 mg/dl (0.2-1.3); Blood Urea Nitrogen 67 mg/dl (7-17); Calcium 7.9 mg/dl (8.4-10.2); Carbon Dioxide 22 mmol/L (22.0-30.0); Chloride 101 mmol/L (98-107); Creatinine Clearance Estimated 9 mL/min (50-200); Estimated Glomerular Filt Rate 17 ml/min (>60); GFR (African American) 21 ML/MIN (>60); Globulin 3.1 g/dL (1.3-3.2); Glucose 138 mg/dl (74-100); Magnesium 2.2 mg/dl (1.6-2.3); Phosphorous 7.1 mg/dl (2.5-4.5); Potassium 3.4 mmoL/L (3.5-5.1); Sodium 136 mmol/L (136-145); Total Protein,Serum 5.5 g/dl (6.3-8.2)
--- NOTE | 2022-01-07 10:12 | HMH.HP ---
*Admission Date: 01/06/22 *Chief complaint: sepsis with elevated troponins *History of present illness: Patient is an 86-year-old white female, previous admission here for sepsis and a periprosthetic right knee fracture. During her previous stay she cultured a staph in her bloodstream. She was placed on IV antibiotics. During her previous stay she was seen in consultation with Ortho. She declined aspiration. She has been wearing a brace on the right knee for immobilization. She was getting [facility] at [facility] attempts to mobilize. During her previous stay the patient also complains of chest discomfort. She had a rest elevation in troponin, was offered left heart cath but declined. Cardiology had relayed aortic stenosis by echo. Nursing staff at the detention had reported a declining urinary output and subsequent hypotension. On arrival to the emergency room the patient was ill. She appeared to be septic, hypotensive, and subsequent work-up showed elevated white count, elevated creatinine, and marked elevations in troponin. Daughter relays that patient was holding her anterior chest earlier in the day. EKG is reviewed, shows some ST depression. Troponins have continued to steadily rise. Patient was placed on IV fluids doing a bolus in the emergency room. She was hypotensive this morning, and given a gentle bolus of 500. Once that is finished we will increase her rate to 150. Urine is noted to be dark and concentrated. Patient is a DNR. I had a lengthy discussion with the family regarding comfort measures moving into the future. Patient currently on a regimen of cefepime and vancomycin. Patient's right knee is without warmth, redness or suggestion of infection. Calves are soft and symmetric bilaterally [facility] History Medical History: Reports:: Cancer (BREAST CANCER), Hypertension Denies:: Diabetes Mellitus Type 1, Diabetes Mellitus Type 2, MRSA *Have you ever received a pneumonia vaccine?: Yes *Have you received a flu vaccine this season?: Yes Other Medical History: Reports: Arthritis, Cataracts Laterality Cases: Right: Mastectomy, Bilateral: Arthroscopy Knee, Cataract Other Surgeries: Yes: Cholecystectomy Amputation: No Fractures: No - *Social History Smoking Status: Never smoker Alcohol Intake: never *Occupational Status:: retired Housing: house Household Members: family *Travel in the last 8 weeks: None Family Hx:: Non-contributory Review of Systems - Review of Systems Review of systems:: unable to obtain Meds Home Medications Medication Instructions Recorded Confirmed Type Escitalopram Oxalate [Lexapro] 10 mg PO DAILY 12/16/21 01/06/22 History Furosemide [Furosemide 40MG tAB*] 40 mg PO DAILY 12/16/21 01/06/22 History Oxybutynin Chloride [Oxybutynin 5 mg PO HS 12/16/21 01/06/22 History Chloride ER] Trazodone HCl 50 mg PO HS 12/16/21 01/06/22 History ondansetron HCL [Ondansetron 4mg 4 mg PO Q4HP PRN 12/16/21 01/06/22 History tab*] Acetaminophen [Acetaminophen Extra 1,000 mg PO Q6HP PRN 01/06/22 01/06/22 History Strength] Cefepime HCl [Maxipime 2gm Vial] 2 gm IV 1100,2300 01/06/22 01/06/22 History Dexlansoprazole [Dexilant] 60 mg PO DAILY 01/06/22 01/06/22 History LORazepam [Lorazepam 2mg Tablet] 1 mg PO QID 01/06/22 01/07/22 History Allergies Allergy/AdvReac Type Severity Reaction Status Date / Time No Known Allergies Allergy Unverified 10/01/17 14:27 Exam Vital signs and Labs for Last 24 Hours: Temp Pulse Resp BP Pulse Ox 98.4 F 56 L 16 66/29 L 93 L 01/07/22 08:00 01/07/22 08:00 01/07/22 08:00 01/07/22 08:00 01/07/22 08:00 Laboratory Results - last 24 hr 01/06/22 12:33: WBC 23.2 H*, RBC 2.96 L, Hgb 9.1 L, Hct 30.8 L, MCV 103.9 H, MCH 30.8, MCHC 29.7 L, RDW 15.6, Plt Count 327, MPV 10.3, Neut % (Auto) 91.1 H, Lymph % (Auto) 5.7 L, [place] % (Auto) 2.7, Eos % (Auto) 0.1, Baso % (Auto) 0.4, Neut # (Auto) 21.1 H, Lymph # (Auto) 1.3, [place] # (Auto) 0.6, Eos
[2022-01-07 10:18] LABS: Aspartate Amino Transferase 1099 U/L (14-36)
[2022-01-07 10:33] VITALS: BMI 30.5
[2022-01-07 11:35] VITALS: BP 67/27; PULSE 57; RESP 16; TEMP 36.7; O2SAT 97
[2022-01-07 14:20] LABS: Lymphocytes % 5 % (10-50); Monocytes % 3 % (2-9); Neutrophils % 92 % (42-76); Total Cells Counted 100
[2022-01-07 14:21] LABS: Hypochromasia 2+; Macrocytosis 1+; Platelet Estimate Normal
[2022-01-07 15:32] VITALS: BP 57/27; PULSE 61; RESP 14; TEMP 36.7; O2SAT 92
--- NOTE | 2022-01-07 15:59 | PC.NURSE ---
Courtesy round done. No needs per family at this time
--- NOTE | 2022-01-07 16:47 | PC.NURSE ---
1620-pt asytole on monitor, no breathing noted, pupils fixed. 1621- MD Saab up to the floor to pronounce 1638- MD Witt, glass ribbon machine operator for MD Andrews/Suresh notified 1640- DOUG notified. Pt ruled out for donation by Alecia Velarde
--- NOTE | 2022-01-07 17:53 | HMH.DEATH ---
Pronouncement Note - Date and Time of Date of : 01/07/22 Time of : 16:20 - PCOD Preliminary cause of : Cardiac arrest (Sepsis) - Additional Data Confirmation of : no pulse, no respirations, no heart sounds, pupils fixed and dilated Family: at bedside Attending physician: Elvin Andrews MD
--- NOTE | 2022-01-07 18:45 | PC.NURSE ---
Spoke to [facility] @ this time. Director will be out shortly.
--- NOTE | 2022-01-11 12:10 | P.DN_ITS ---
Discharge Sum: Prov - Provider Primary care physician: Rene Pedroza Visit Care Team Role Provider Type Rene Pedroza Primary Care Provider Staff Physician Tylor Arreguin MD Emergency Provider ER Physician Elvin Andrews MD Attending Provider Staff Physician Mathew Witt MD Admit Provider Staff Physician Admitting clinician: Elvin Andrews Attending physician on admission: Elvin Andrews Pronouncing clinician: Andreas Saab Discharge Sum: Diag - PCOD Cause of : Cardiac arrest (SEPSIS) Discharge Sum: Summary - Date and Time Date of admission: 01/06/22 14:55 Date of : 01/07/22 Time of : 16:20 - Hospital Course prior to Hospital Course Information: ADMITTED W/SEPSIS AND HYPOTENSION. YUDITH/LIVER INJURY SUSPECTED MARKED ELEVATION IN TROPONINS - Additional Data Confirmation of as documented by pronouncing clinician: no pulse, no respirations, no heart sounds, pupils fixed and dilated Family: at bedside Attending/PCP notified?: Yes Attending physician: Elvin Andrews MD Was code activated?: No Autopsy requested?: No life claims examiner notified?: No Organ bank notified?: No Advance directives: No Hospice patient?: No
== END 2022-01-07 21:01 | disposition expired | DRG 871 ==
LOC: ER 12:34 → 2ND 14:10
PROVIDERS: Admitting Provider Internal Medicine Adolescent Medicine; Emergency Provider Student in an Organized Health Care Education/Training Program; PCP Internal Medicine; Visit Provider Family Medicine
DX: A41.01 Sepsis due to Methicillin susceptible Staphylococcus aureus (principal); R65.21 Severe sepsis with septic shock; I21.4 Non-ST elevation (NSTEMI) myocardial infarction; J18.9 Pneumonia, unspecified organism; M97.11XA Periprosthetic fracture around internal prosthetic right knee joint, initial encounter; Z20.822 Contact with and (suspected) exposure to COVID-19; S36.119A Unspecified injury of liver, initial encounter; Y83.1 Surgical operation with implant of artificial internal device as the cause of abnormal reaction of the patient, or of later complication, without mention of misadventure at the time of the procedure; I35.0 Nonrheumatic aortic (valve) stenosis; Z66 Do not resuscitate; Z85.3 Personal history of malignant neoplasm of breast; M19.90 Unspecified osteoarthritis, unspecified site; Z51.5 Encounter for palliative care
CPT/HCPCS: 71045; 80053; 83605; 83735; 84100; 84484; 85007; 85025; 85651; 86140; 87040; 93005; 96365; 96367; 96375; 99291; C9803; J0692; J1642; J3370; U0003; U0005